=== PATIENT | female | born 1970 | race Caucasian/White ===

== ENCOUNTER 2023-05-06 08:57 | Outpatient (OUT) | payer MEDICAID, SELFPAY ==
[2023-05-06 09:31] LABS: Basophils Absolute Auto 0.1 10^3/uL (0.0-0.1); Basophils Percent Auto 0.8 % (0.2-2.0); Eosinophils Absolute Auto 0.2 10^3/uL (0.0-0.7); Eosinophils Percent Auto 2.7 % (0.9-7.0); Hematocrit 41.2 % (36.0-48.0); Hemoglobin 13.2 g/dL (12.0-16.0); Immature Granulocytes Abs Auto 0.02 10^3/uL (0.00-0.03); Immature Granulocytes Pct Auto 0.3 % (0.0-0.5); Lymphocytes Absolute Auto 1.8 10^3/uL (1.2-3.8); Lymphocytes Percent Auto 23.4 % (20.5-60.0); Mean Corpuscular Hemoglobin 28.2 pg (26.7-34.0); Mean Platelet Volume 9.4 fL (9.5-13.5); Monocytes Absolute Auto 0.6 10^3/uL (0.3-0.8); Monocytes Percent Auto 7.7 % (1.7-12.0); Neutrophils Absolute Auto 5.1 10^3/uL (1.4-6.5); Neutrophils Percent Auto 65.1 % (43.0-75.0); Platelet Count 271 10^3/uL (150-450); Red Blood Count 4.68 10^6/uL (4.20-5.40); Red Cell Distribution Width 13.9 % (11.0-15.0); White Blood Count 7.9 10^3/uL (4.0-11.0)
[2023-05-06 10:25] LABS: Free T4 0.87 ng/dL (0.76-1.46)
[2023-05-06 10:57] LABS: Alanine Aminotransferase 16 U/L (14-59); Albumin Level 3.6 g/dL (3.4-5.0); Alkaline Phosphatase 70 U/L (46-116); Anion Gap 14.3; Aspartate Amino Transferase 11 U/L (15-37); Bilirubin Total 0.1 mg/dL (0.2-1.0); Calcium 9.2 mg/dL (8.5-10.1); Carbon Dioxide 26.1 mmol/L (21.0-32.0); Chloride 105 mmol/L (98-107); Chol HDL Ratio 3.7; Cholesterol 240 mg/dL (<=200); Estimated GFR (African America >60 (>=60); Estimated GFR (Non-African Ame >60 (>=60); Globulin 3.5 g/dL; Glucose 104 mg/dL (74-106); HDL Cholesterol 65 mg/dL (40-60); Potassium 4.4 mmol/L (3.5-5.1); Sodium 141 mmol/L (136-145); Thyroid Stimulating Hormone 1.518 uIU/mL (0.358-3.740); Total Protein 7.1 g/dL (6.4-8.2); Triglycerides 54 mg/dL (<=150); VLDL CHOLESTEROL 10.8 mg/dL
== END 2023-05-06 08:58 | disposition home or self-care (01) ==
LOC: LAB 09:01
PROVIDERS: PCP Physician Assistant; Visit Provider Physician Assistant
DX: F41.9 Anxiety disorder, unspecified (principal); G25.81 Restless legs syndrome; Z79.899 Other long term (current) drug therapy; Z13.6 Encounter for screening for cardiovascular disorders
CPT/HCPCS: 36415; 80053; 80061; 80307; 84439; 84443; 85025

== ENCOUNTER 2023-11-24 11:29 | Outpatient (REF) | payer MEDICAID, SELFPAY ==
[2023-11-24 12:10] LABS: Amphetamine Screen Urine NEGATIVE (NEGATIVE); Barbiturates Screen Urine NEGATIVE (NEGATIVE); Benzodiazepines Screen Urine NEGATIVE (NEGATIVE); Buprenorphine Screen Urine NEGATIVE (NEGATIVE); Cannabinoid Screen Urine NEGATIVE (NEGATIVE); Cocaine Screen Urine NEGATIVE (NEGATIVE); Methadone Screen Urine NEGATIVE (NEGATIVE); Methamphetamines Screen Urine NEGATIVE (NEGATIVE); Opiate Screen Urine NEGATIVE (NEGATIVE); Oxycodone Screen Urine NEGATIVE (NEGATIVE); Phencyclidine Screen Urine NEGATIVE (NEGATIVE); Tricyclic Antidepressant Urine NEGATIVE (NEGATIVE)
== END 2023-11-24 11:30 | disposition home or self-care (01) ==
LOC: LAB 11:29
PROVIDERS: PCP Physician Assistant; Visit Provider Nurse Practitioner
DX: G25.81 Restless legs syndrome (principal)
CPT/HCPCS: 80307

== ENCOUNTER 2023-12-27 19:05 | Emergency (ER) | payer MEDICAID, SELFPAY ==
[2023-12-27] VITALS (41 sets, daily range): BP systolic 67–133; BP diastolic 38–76; PULSE 75–102; TEMP 36.8; O2SAT 89–98; BMI 27.5
--- NOTE | 2023-12-27 19:12 | ECG_ITS ---
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
--- NOTE | 2023-12-27 19:16 | ED_ITS ---
Documented by User: MORE Delacruz 12/27/23 21:35 HPI HPI - General Adult General Chief complaint: Nausea/Vomiting/Diarrhea Stated complaint: General Weakness Time Seen by Provider: 12/27/23 19:07 Source: patient Mode of arrival: ambulance Limitations: no limitations History of Present Illness HPI narrative: Patient is a 53-year-old female with a history of MS who presents to the emergency room by ambulance after family called 911 because the patient has been feeling weak with vomiting and diarrhea over the last several days. Patient states she has daily seizures although family reports that the last seizure the patient had was 3 days ago. She sees a neurologist through [facility]. She is on Keppra for the seizures. She states 2 months ago her Keppra was increased. She states she is currently having a headache, back pain. She denies any falls or injuries. EMS reported hypotension. Patient denies chest pain, shortness of breath, fevers, chills, upper respiratory symptoms. History is difficult as the patient has dysarthria from her MS. Related Data Home Medications ?Medication ?Instructions ?Recorded ?Confirmed amitriptyline 25 mg tablet mg 12/27/23 atorvastatin 10 mg tablet mg 12/27/23 carisoprodol 350 mg tablet mg 12/27/23 levetiracetam 500 mg tablet 700 mg PO Q12H 12/27/23 12/27/23 mirtazapine 15 mg tablet mg 12/27/23 pantoprazole 40 mg tablet,delayed mg PO 12/27/23 release venlafaxine 150 mg mg PO 12/27/23 capsule,extended release 24 hr Allergies Allergy/AdvReac Type Severity Reaction Status Date / Time Penicillins Allergy Unknown Verified 12/27/23 19:12 Opioid HPI Opioid Management Most Recent Opioid Data: Last Pain Scale 10 12/27/23 20:17 Ur Phencyclidine Scrn Negative (NEGATIVE) 11/24/23 10:00 Review of Systems ROS Constitutional Denies: fever or chills Ears, nose, mouth, and throat Denies: throat pain or nasal congestion Cardiovascular Denies: chest pain Respiratory Denies: shortness of breath Gastrointestinal Reports: nausea, vomiting and diarrhea Musculoskeletal Reports: back pain Neurological Reports: headache, weakness in extremities and lack of coordination Hematologic/Lymphatic Denies: easy bruising or easy bleeding Allergic/Immunologic Denies: hives Exam Narrative Exam Narrative: Gen.: Awake, alert, in no distress Head: Normocephalic, atraumatic ENT: Moist mucous membranes, No facial or dental injury Respiratory: No respiratory distress, lungs clear bilaterally Cardio: Regular rate and rhythm Gastrointestinal: Abdomen is soft, nondistended and nontender to palpation; Urostomy bag to the right lower abdomen with dark-colored urine Extremities: Global weakness of the extremities with contractures of the hands noted Psych: Normal mood and affect Neuro: No focal neuro deficit Skin: Warm, dry, intact Constitutional Vital Signs, click to edit/add: Last Vital Signs Temp 98.3 F 12/27/23 19:09 Pulse 85 12/27/23 22:12 Resp 16 12/27/23 22:12 BP 98/64 12/27/23 22:12 Pulse Ox 93 L 12/27/23 22:12 O2 Del Method Room Air 12/27/23 19:09 Course Vital Signs Vital signs: Vital Signs Temperature 98.3 F 12/27/23 19:09 Pulse Rate 100 H 12/27/23 19:09 Respiratory Rate 18 12/27/23 19:09 Blood Pressure 85/65 L 12/27/23 19:09 Pulse Oximetry 94 L 12/27/23 19:09 Oxygen Delivery Method Room Air 12/27/23 19:09 Temperature 98.3 F 12/27/23 19:09 Pulse Rate 85 12/27/23 22:12 Respiratory Rate 16 12/27/23 22:12 Blood Pressure 98/64 12/27/23 22:12 Pulse Oximetry 93 L 12/27/23 22:12 Oxygen Delivery Method Room Air 12/27/23 19:09 Medical Decision Making [facility] Narrative Medical decision making narrative: 2133: Patient was treated with IV fluids, Zofran, Toradol, Keppra. She had 2 IVs infiltrate. Ultrasound-guided IV was placed for third time. Patient requested a Percocet which is her regular pain medication. Blood pressure improved. Based on the patient's symptoms, she was sent for a head CT, CT of the abdomen and pelvis with IV contrast and the remainder of the labs are pending. Case is turned over to attending physician at this time for disposition. Medical Records Medical records reviewed: Yes I reviewed the patient's medical records Lab Data Lab results reviewed: Yes I reviewed the patient's lab results Labs: Lab Results 12/27/23 12/27/23 12/27/23 Range/Units 19:00 19:49 20:44 WBC 7.1 (4.0-11.0) 10^3/uL RBC 4.65 (4.20-5.40) 10^6/uL Hgb 12.9 (12.0-16.0) g/dL Hct 41.1 (36.0-48.0) % MCV 88.4 (81.0-99.0) fL MCH 27.7 (26.7-34.0) pg MCHC 31.4 (29.9-35.2) g/dL RDW 14.6 (11.0-15.0) % Plt Count 297 (150-450) 10^3/uL MPV 9.5 (9.5-13.5) fL Neut % (Auto) 70.9 (43.0-75.0) % Lymph % (Auto) 18.2 L (20.5-60.0) % [place] % (Auto) 6.4 (1.7-12.0) % Eos % (Auto) 3.1 (0.9-7.0) % Baso % (Auto) 1.0 (0.2-2.0) % Neut # (Auto) 5.1 (1.4-6.5) 10^3/uL Lymph # (Auto) 1.3 (1.2-3.8) 10^3/uL [place] # (Auto) 0.5 (0.3-0.8) 10^3/uL Eos # (Auto) 0.2 (0.0-0.7) 10^3/uL Baso # (Auto) 0.1 (0.0-0.1) 10^3/uL Abs Immat Gran (auto) 0.03 (0.00-0.03) 10^3/uL Imm/Tot Granulo (auto) 0.4 (0.0-0.5) % PT 9.9 (9.0-11.6) sec INR 0.93 VBG pH 7.373 (7.330-7.430) VBG pCO2 49.1 (40.0-52.0) mmHg Sodium 140 (136-145) mmol/L Potassium 4.1 (3.5-5.1) mmol/L Chloride 104 (98-107) mmol/L Carbon Dioxide 29.1 (21.0-32.0) mmol/L Anion Gap 11.0 BUN 15.0 (7.0-18.0) mg/dL Creatinine 0.88 (0.55-1.02) mg/dL Est GFR ( Amer) >60 (>=60) Est GFR (Non-Af Amer) >60 (>=60) BUN/Creatinine Ratio 17.0 Glucose 114 H (74-106) mg/dL Lactate 1.5 (0.4-2.0) mmol/L Calcium 8.9 (8.5-10.1) mg/dL Magnesium 2.1 (1.8-2.4) mg/dL Total Bilirubin 0.2 (0.2-1.0) mg/dL AST 15 (15-37) U/L ALT 16 (14-59) U/L Alkaline Phosphatase 98 (46-116) U/L Troponin I High Sens <4.0 L (4.0-51.3) pg/mL Total Protein 7.0 (6.4-8.2) g/dL Albumin 3.4 (3.4-5.0) g/dL Globulin 3.6 g/dL Albumin/Globulin Ratio 0.9 Lipase 11.0 L (16.0-77.0) U/L Procalcitonin <0.05 (0.00-0.50) ng/mL TSH 0.726 (0.358-3.740) uIU/mL Urine Color Dk yellow (YELLOW) Urine Clarity Cloudy A (CLEAR) Urine pH 7.0 (5.0-9.0) Ur Specific [place] 1.025 (1.005-1.025) Urine Protein 100 A (NEG/TRACE) mg/dL Urine Glucose (UA) Negative (NEGATIVE) mg/dL Urine Ketones Trace A (NEGATIVE) mg/dL Urine Occult Blood Negative (NEGATIVE) Urine Nitrite Negative (NEGATIVE) Urine Bilirubin Negative (NEGATIVE) Urine Urobilinogen 0.2 (0.2-1.0) EU/dL Ur Leukocyte Esterase Small A (NEGATIVE) Urine RBC 0-2 (0-2) #/HPF Urine WBC 10-20 A (NONE SEEN) #/HPF Ur Squamous Epith Cells Few A (NONE/RARE) #/LPF Urine Crystals Seen A (None Seen) #/HPF Calcium Oxalate Crystal Moderate Amorphous Sediment Many Urine Bacteria None seen (NONE SEEN) #/HPF Urine Casts None seen (NONE SEEN) #/LPF Urine Mucus Moderate A (NONE SEEN) Ur Culture Indicated? Yes Adenovirus (PCR) Not detected (NOT DETECTE) B. pertussis DNA (PCR) Not detected (NOT DETECTE) B.parapertussis DNA PCR Not detected (NOT DETECTE) C. pneumoniae DNA (PCR) Not detected (NOT DETECTE) Coronavirus Type OC43 Not detected (NOT DETECTE) Coronavirus Type HKU1 Not detected (NOT DETECTE) Coronavirus Type 229E Not detected (NOT DETECTE) Coronavirus Type NL63 Not detected (NOT DETECTE) Human Metapneumovir PCR Not detected (NOT DETECTE) Influenza Type A (PCR) Not detected (NOT DETECTE) Influenza Type B (PCR) Not detected (NOT DETECTE) M. pneumoniae (PCR) Not detected (NOT DETECTE) Parainfluenza PCR Not detected (NOT DETECTE) Parainfluenza 2 (PCR) Not detected (NOT DETECTE) Parainfluenza 3 (PCR) Not detected (NOT DETECTE) Parainfluenza 4 (PCR) Not detected (NOT DETECTE) RSV (RT-PCR) Not detected (NOT DETECTE) Entero/Rhino (PCR) Not detected (NOT DETECTE) SARS-CoV-2 (PCR) Not detected (NOT DETECTE) ECG Data Attestation: I personally reviewed and interpreted this ECG as follows: (Sinus tachycardia at a rate of 100, no acute ST elevation or ectopy. EKG reviewed by attending physician.) Discharge Plan Discharge Patient Disposition: Still a Patient Documented by User: Camila Bertrand MD 12/27/23 22:46 HPI HPI - General Adult General Chief complaint: Nausea/Vomiting/Diarrhea Stated complaint: General Weakness Time Seen by Provider: 12/27/23 19:07 Related Data Home Medications ?Medication ?Instructions ?Recorded ?Confirmed amitriptyline 25 mg tablet mg 12/27/23 atorvastatin 10 mg tablet mg 12/27/23 carisoprodol 350 mg tablet mg 12/27/23 levetiracetam 500 mg tablet 700 mg PO Q12H 12/27/23 12/27/23 mirtazapine 15 mg tablet mg 12/27/23 pantoprazole 40 mg tablet,delayed mg PO 12/27/23 release venlafaxine 150 mg mg PO 12/27/23 capsule,extended release 24 hr Allergies Allergy/AdvReac Type Severity Reaction Status Date / Time Penicillins Allergy Unknown Verified 12/27/23 19:12 Opioid HPI Opioid Management Most Recent Opioid Data: Last Pain Scale 10 12/27/23 20:17 Ur Phencyclidine Scrn Negative (NEGATIVE) 11/24/23 10:00 Exam Constitutional Vital Signs, click to edit/add: Last Vital Signs Temp 98.3 F 12/27/23 19:09 Pulse 85 12/27/23 22:12 Resp 16 12/27/23 22:12 BP 98/64 12/27/23 22:12 Pulse Ox 93 L 12/27/23 22:12 O2 Del Method Room Air 12/27/23 19:09 Course Vital Signs Vital signs: Vital Signs Temperature 98.3 F 12/27/23 19:09 Pulse Rate 100 H 12/27/23 19:09 Respiratory Rate 18 12/27/23 19:09 Blood Pressure 85/65 L 12/27/23 19:09 Pulse Oximetry 94 L 12/27/23 19:09 Oxygen Delivery Method Room Air 12/27/23 19:09 Temperature 98.3 F 12/27/23 19:09 Pulse Rate 85 12/27/23 22:12 Respiratory Rate 16 12/27/23 22:12 Blood Pressure 98/64 12/27/23 22:12 Pulse Oximetry 93 L 12/27/23 22:12 Oxygen Delivery Method Room Air 12/27/23 19:09 Medical Decision Making Medical Records Medical records narrative: The [address] [address] [address] Scan Report Signed Patient: JIMENA MALDONADO MR#: [id number] : 1970 Acct:[id number] Age/Sex: 53 / F ADM Date: 12/27/23 Loc: ER Attending Dr: Ordering Physician: Ethan Dinh Date of Service: 12/27/23 Procedure(s): CT head/brain wo con Accession Number(s): [id number] cc: Lyle Quezada ~ The [address] [address] Patient Name: JIMENA MALDONADO MRN: [facility]:[id number] date: 1970 Sex: F Assigned Patient Location: ER Current Patient Location: ER Accession/Order Number: [id number] Exam Date: 12/27/2023 21:40 Report Date: 12/27/2023 22:36 At the request of: ETHAN DINH Procedure: CT head/brain wo con INDICATION: 53 years old; Female. Seizure. Headache. TECHNIQUE: CT Head (ax/cor/sag reformats). Ionizing radiation dose reduced via iterative reconstruction/FBP blend and body size kV/mA adjustment. Comparison: MRI the brain dated 12/11/2022. FINDINGS: POSTOPERATIVE CHANGES: None. BRAIN PARENCHYMA: No intraparenchymal or extra-axial hemorrhage. No mass effect. No midline shift or herniation. Normal ac/white differentiation. VENTRICLES/EXTRA-AXIAL SPACES: Normal for patient's age. SINUSES/MASTOIDS: Sinuses are clear although the maxillary sinuses are not completely included. Mastoids and middle ears are clear. MSK: No displaced or depressed fracture. No calvarial deformity. OTHER: Vascular calcification. No hyperdense intraluminal thrombus. CT/CT head/brain wo con IMPRESSION: 1. No acute intracranial abnormality. No hemorrhage or mass effect. Electronically authenticated by: PATRICIO HELMS Date: 12/27/2023 22:36 Lab Data Labs: Lab Results 12/27/23 12/27/23 12/27/23 Range/Units 19:00 19:49 20:44 WBC 7.1 (4.0-11.0) 10^3/uL RBC 4.65 (4.20-5.40) 10^6/uL Hgb 12.9 (12.0-16.0) g/dL Hct 41.1 (36.0-48.0) % MCV 88.4 (81.0-99.0) fL MCH 27.7 (26.7-34.0) pg MCHC 31.4 (29.9-35.2) g/dL RDW 14.6 (11.0-15.0) % Plt Count 297 (150-450) 10^3/uL MPV 9.5 (9.5-13.5) fL Neut % (Auto) 70.9 (43.0-75.0) % Lymph % (Auto) 18.2 L (20.5-60.0) % [place] % (Auto) 6.4 (1.7-12.0) % Eos % (Auto) 3.1 (0.9-7.0) % Baso % (Auto) 1.0 (0.2-2.0) % Neut # (Auto) 5.1 (1.4-6.5) 10^3/uL Lymph # (Auto) 1.3 (1.2-3.8) 10^3/uL [place] # (Auto) 0.5 (0.3-0.8) 10^3/uL Eos # (Auto) 0.2 (0.0-0.7) 10^3/uL Baso # (Auto) 0.1 (0.0-0.1) 10^3/uL Abs Immat Gran (auto) 0.03 (0.00-0.03) 10^3/uL Imm/Tot Granulo (auto) 0.4 (0.0-0.5) % PT 9.9 (9.0-11.6) sec INR 0.93 VBG pH 7.373 (7.330-7.430) VBG pCO2 49.1 (40.0-52.0) mmHg Sodium 140 (136-145) mmol/L Potassium 4.1 (3.5-5.1) mmol/L Chloride 104 (98-107) mmol/L Carbon Dioxide 29.1 (21.0-32.0) mmol/L Anion Gap 11.0 BUN 15.0 (7.0-18.0) mg/dL Creatinine 0.88 (0.55-1.02) mg/dL Est GFR ( Amer) >60 (>=60) Est GFR (Non-Af Amer) >60 (>=60) BUN/Creatinine Ratio 17.0 Glucose 114 H (74-106) mg/dL Lactate 1.5 (0.4-2.0) mmol/L Calcium 8.9 (8.5-10.1) mg/dL Magnesium 2.1 (1.8-2.4) mg/dL Total Bilirubin 0.2 (0.2-1.0) mg/dL AST 15 (15-37) U/L ALT 16 (14-59) U/L Alkaline Phosphatase 98 (46-116) U/L Troponin I High Sens <4.0 L (4.0-51.3) pg/mL Total Protein 7.0 (6.4-8.2) g/dL Albumin 3.4 (3.4-5.0) g/dL Globulin 3.6 g/dL Albumin/Globulin Ratio 0.9 Lipase 11.0 L (16.0-77.0) U/L Procalcitonin <0.05 (0.00-0.50) ng/mL TSH 0.726 (0.358-3.740) uIU/mL Urine Color Dk yellow (YELLOW) Urine Clarity Cloudy A (CLEAR) Urine pH 7.0 (5.0-9.0) Ur Specific [place] 1.025 (1.005-1.025) Urine Protein 100 A (NEG/TRACE) mg/dL Urine Glucose (UA) Negative (NEGATIVE) mg/dL Urine Ketones Trace A (NEGATIVE) mg/dL Urine Occult Blood Negative (NEGATIVE) Urine Nitrite Negative (NEGATIVE) Urine Bilirubin Negative (NEGATIVE) Urine Urobilinogen 0.2 (0.2-1.0) EU/dL Ur Leukocyte Esterase Small A (NEGATIVE) Urine RBC 0-2 (0-2) #/HPF Urine WBC 10-20 A (NONE SEEN) #/HPF Ur Squamous Epith Cells Few A (NONE/RARE) #/LPF Urine Crystals Seen A (None Seen) #/HPF Calcium Oxalate Crystal Moderate Amorphous Sediment Many Urine Bacteria None seen (NONE SEEN) #/HPF Urine Casts None seen (NONE SEEN) #/LPF Urine Mucus Moderate A (NONE SEEN) Ur Culture Indicated? Yes Adenovirus (PCR) Not detected (NOT DETECTE) B. pertussis DNA (PCR) Not detected (NOT DETECTE) B.parapertussis DNA PCR Not detected (NOT DETECTE) C. pneumoniae DNA (PCR) Not detected (NOT DETECTE) Coronavirus Type OC43 Not detected (NOT DETECTE) Coronavirus Type HKU1 Not detected (NOT DETECTE) Coronavirus Type 229E Not detected (NOT DETECTE) Coronavirus Type NL63 Not detected (NOT DETECTE) Human Metapneumovir PCR Not detected (NOT DETECTE) Influenza Type A (PCR) Not detected (NOT DETECTE) Influenza Type B (PCR) Not detected (NOT DETECTE) M. pneumoniae (PCR) Not detected (NOT DETECTE) Parainfluenza PCR Not detected (NOT DETECTE) Parainfluenza 2 (PCR) Not detected (NOT DETECTE) Parainfluenza 3 (PCR) Not detected (NOT DETECTE) Parainfluenza 4 (PCR) Not detected (NOT DETECTE) RSV (RT-PCR) Not detected (NOT DETECTE) Entero/Rhino (PCR) Not detected (NOT DETECTE) SARS-CoV-2 (PCR) Not detected (NOT DETECTE) Discharge Plan Discharge Patient Disposition: Still a Patient
--- OUTSIDE RECORDS SUMMARY | 2023-12-27 19:18 | XMS_ITS | CCD ---
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 Name Role Phone FRANKLIN DALY Primary Care Unavailable MANUEL ., MARY Admitting Unavailable MANUEL ., MARY Attending Unavailable ANYI PRIETO Consulting Unavailable LAUREN RANDLE Consulting Unavailable HOMAR HICKEY Admitting Unavailable HOMAR HICKEY Attending Unavailable FRANKLIN DALY Primary Care Unavailable MAXX, DR AMBER Chavira Consulting Unavailable SUNNY, DR LUIS Herrera Consulting Unavailable HOMAR HICKEY Consulting Unavailable FRANKLIN DALY Admitting Unavailable FRANKLIN DALY Attending Unavailable FRANKLIN DALY Primary Care Unavailable FRANKLIN DALY Consulting Unavailable Allergies Allergy Classification Reported Allergen(s) Allergy Type Date of Onset Reaction(s) Facility (1 source) Penicillins Drug allergy (disorder) 05-04-2013 [facility] Repository Problems Active Problems Problem Classification Problem Date Documented Da te Episodic/Chronic Anxiety disorders (4 sources) Anxiety disorder, unspecified; Translations: [ANXIETY DISORDER UNSPECIFIED] Onset: 01-13-2022 Chronic Cancer of bladder (1 source) Malignant neoplasm of bladder, unspecified; Translations: [MALIGNANT NEOPLASM OF BLADDER UNS] Onset: 04-17-2022 Chronic Epilepsy; convulsions (4 sources) Unspecified convulsions; Translations: [UNSPECIFIED CONVULSIONS] Onset: 12-11-2022 Episodic Esophageal disorders (1 source) Gastro-esophageal reflux disease without esophagitis; Translations: [GERD WITHOUT ESOPHAGITIS] Onset: 01-15-2022 Chronic Genitourinary symptoms and ill-defined conditions (1 source) Presence of urogenital implants; Translations: [PRESENCE OF UROGENITAL IMPLANTS] Onset: 04-17-2022 Chronic Other hereditary and degenerative nervous system conditions (1 source) Restless legs syndrome; Translations: [RESTLESS LEGS SYNDROME] Onset: 01-15-2022 Chronic Other nervous system disorders (1 source) Abnormal reflex; Translations: [ABNORMAL REFLEX] Onset: 12-14-2022 Episodic Spondylosis; intervertebral disc disorders; other back problems (1 source) Radiculopathy, lumbar region; Translations: [RADICULOPATHY LUMBAR REGION] Onset: 12-14-2022 Episodic Viral infection (1 source) COVID-19; Translations: [COVID-19] Onset: 04-17-2022 Past or Other Problems Problem Classification Problem Date Documented Date Episodic/Chronic Malaise and fatigue (3 sources) Weakness; Translations: [WEAKNESS] Onset: 04-15-2022 Episodic Other screening for suspected conditions (not mental disorders or infectious disease) (1 source) Encounter for screening for cardiovascular disorders; Translations: [ENC FOR SCREENING FOR CV DISORDERS] Onset: 01-15-2022 Episodic Urinary tract infections (1 source) Urinary tract infection, site not specified; Translations: [UTI SITE NOT SPECIFIED] Onset: 04-17-2022 Episodic Results Test Name Value Interpretation Reference Range Facility MRI BRAIN WO W CONon 023 MRI BRAIN WO W CON EXAMINATION: MRI BRAIN WO W CON HISTORY: Seizure ; chronic bilateral extremity weakness COMPARISON: No relevant comparison available. TECHNIQUE: A variety of imaging planes and parameters were utilized for visualization of suspected pathology. Images were performed without and with ml Dotarem contrast. FINDINGS: CEREBRUM: No edema, hemorrhage, mass, acute infarction, or inappropriate atrophy. CEREBELLUM: No edema, hemorrhage, mass, acute infarction, or inappropriate atrophy. BRAINSTEM: No edema, hemorrhage, mass, acute infarction, or inappropriate atrophy. CSF SPACES: Ventricles, cisterns, and sulci are appropriate for age. No hydrocephalus, subarachnoid hemorrhage, or mass. SKULL: No mass or other significant visible lesion. SINUSES: Limited views demonstrate no significant mucosal thickening or fluid. ORBITS: Limited views are unremarkable. OTHER: No abnormal meningeal or parenchymal enhancement. IMPRESSION: 1. Normal examination. Electronically authenticated by: LUIS CORREA Date: 2022-12-12 07:24 Normal [facility] MRI LSPINE WO CONon 12-13-19 23 MRI LSPINE WO CON EXAMINATION: MRI LSPINE WO CON HISTORY: Paresthesia COMPARISON: No relevant comparison available. TECHNIQUE: A variety of imaging planes and parameters were utilized for visualization of suspected pathology. FINDINGS: For the purposes of numbering, sagittal T2 image # 8 extends from the T11 vertebral body superiorly to the S3 level inferiorly. PARASPINAL AREA: Normal with no visible mass. BONES: Normal alignment with no acute fracture or spondylolisthesis. Moderate signal abnormality identified centered along the endplates of the L2-L4 vertebral bodies, Modic 2 and 3 changes. Moderate degenerative spondylosis and facet osteoarthropathy CORD/CAUDA EQUINA: Normal caliber, contour, and signal intensity. DISC LEVELS: 12-L1: No significant disc/facet abnormality, spinal stenosis, or foraminal stenosis. L1-L2: Moderate disc space narrowing and disc desiccation. No disc bulge or herniation. No central or foraminal stenosis L2-L3: Moderate disc space narrowing and disc desiccation. Posterior broad-based disc protrusion up to 2.5 mm. No central or foraminal stenosis L3-L4: Disc space narrowing and disc desiccation. Posterior broad-based disc protrusion extending posteriorly up to 2.3 mm. Ligamentum flavum hypertrophy and facet osteoarthropathy. No central canal stenosis. Moderate bilateral foraminal stenosis right greater than left L4-L5: Disc desiccation. Posterior broad-based disc protrusion. Ligamentum flavum hypertrophy and facet osteoarthropathy. Right facet 3.6 mm synovial cyst. No central canal stenosis. Moderate bilateral foraminal stenosis. L5-S1: No significant disc/facet abnormality, spinal stenosis, or foraminal stenosis. IMPRESSION: Moderate degenerative changes with bilateral foraminal stenosis L3-L4 and L4-L5 as detailed above Electronically authenticated by: AMBER LILLY Date: 2022-12-12 07:21 Normal [facility] CULTURE URINEon 04-18-2022 CULTURE URINE Isolate 1 Proteus mirabilis 100,000 cfu/mL of Isolate 2 Escherichia coli >100,000 cfu/mL of Isolate 3 Klebsiella pneumoniae >100,000 cfu/mL of ORGANISM 1 Proteus mirabilis ANTIBIOTIC M.I.C RX STATUS Ampicillin <=2 S F Ampicillin/Sulbactam <=2 S F Piperacillin/Tazobact am <=4 S F Cefazolin <=4 S F Ceftazidime <=1 S F Ceftriaxone <=1 S F Ertapenem <=0.5 S F Imipenem 0.5 S F Amikacin <=2 S F Gentamicin <=1 S F Tobramycin <=1 S F Ciprofloxacin <=0.25 S F Levofloxacin <=0.12 S F Nitrofurantoin 128 R F Trimethoprim/Sulfamet hoxazole <=20 S F ORGANISM 2 Escherichia coli ANTIBIOTIC M.I.C RX STATUS Ampicillin 4 S F Ampicillin/Sulbactam <=2 S F Piperacillin/Tazobact am <=4 S F Cefazolin <=4 S F Ceftazidime <=1 S F Ceftriaxone <=1 S F Ertapenem <=0.5 S F Imipenem <=0.25 S F Amikacin <=2 S F Gentamicin <=1 S F Tobramycin <=1 S F Ciprofloxacin <=0.25 S F Levofloxacin <=0.12 S F Nitrofurantoin <=16 S F Trimethoprim/Sulfamet hoxazole <=20 S F ORGANISM 3 Klebsiella pneumoniae ANTIBIOTIC M.I.C RX STATUS Ampicillin 16 R F Ampicillin/Sulbactam 4 S F Piperacillin/Tazobact am <=4 S F Cefazolin <=4 S F Ceftazidime <=1 S F Ceftriaxone <=1 S F Ertapenem <=0.5 S F Imipenem <=0.25 S F Amikacin <=2 S F Gentamicin <=1 S F Tobramycin <=1 S F Ciprofloxacin <=0.25 S F Levofloxacin <=0.12 S F Nitrofurantoin 64 I F Trimethoprim/Sulfamet hoxazole <=20 S F Normal [facility] Comment on above: Performed By: #### U RCX #### [facility] [address] [address] [address] Lupis Santana CBC AUTO DIFFon 04-15-2022 BASO # 0.0 103/ul Normal 0.0-0.1 [facility] Comment on above: Performed By: #### C BC ####[facility] [address] [address]Dr. Lupis Santana Basophils/100 WBC (Bld) 0.6 % Normal 0.2-2.0 [facility] Comment on above: Performed By: #### C BC ####[facility] [address] [id number] Santana EO # 0.0 103/ul Normal 0.0-0.7 [facility] Comment on above: Performed By: #### C BC ####[facility] [address] [address]Dr. Lupis Santana Eosinophils/100 WBC (Bld) 0.3 % Critically low 0.9-7.0 [facility] Comment on above: Performed By: #### C BC ####[facility] [address] [place], [place] [address]Dr. Lupis Santana Erythrocyte distribution width (RBC) [Ratio] 13.9 % Normal 11.0-15.0 [facility] Comment on above: Performed By: #### C BC ####[facility] [address] [place], [place] [address]Dr. Lupis Santana Hematocrit (Bld) [Volume fraction] 37.7 % Normal 36.0-48.0 [facility] Comment on above: Performed By: #### C BC ####[facility] [address] [place], [place] [address]Dr. Lupis Santana Hemoglobin (Bld) [Mass/Vol] 11.9 g/dL Critically low 12.0-16.0 [facility] Comment on above: Performed By: #### C BC ####[facility] [address] [place], [place] [address]Dr. Lupis Santana IG # 0.01 10e3/ul Normal 0.00-0.03 [facility] Comment on above: Performed By: #### C BC ####[facility] [address] [place], [place] [address]Dr. Lupis Santana IG % 0.3 % Normal 0.0-0.5 [facility] Comment on above: Performed By: #### C BC ####[facility] [address] [place], [place] [address]Dr. Lupis Santana LYMPH # 1.3 103/ul Normal 1.2-3.8 [facility] Comment on above: Performed By: #### C BC ####[facility] X[address] [place], [place] [address]Dr. Lupis Santana Lymphocytes/100 WBC (Bld) 36.3 % Normal 20.5-60.0 [facility] Comment on above: Performed By: #### C BC ####[facility] [address] [id number]. Lupis Santana MANUAL DIFF REQ NO Normal [facility] Comment on above: Performed By: #### C BC ####[facility] [address] [id number]. Lupis Santana MCH (RBC) [Entitic mass] 27.4 pg Normal 26.7-34.0 [facility] Comment on above: Performed By: #### C BC ####[facility] [address] [id number]. Lupis Santana MCHC (RBC) [Mass/Vol] 31.6 g/dL Normal 29.9-35.2 [facility] Comment on above: Performed By: #### C BC ####[facility] [address] [place], [place] [address]Dr. Lupis Santana MCV (RBC) [Entitic vol] 86.7 fL Normal 81.0-99.0 [facility] Comment on above: Performed By: #### C BC ####[facility] [address] [place], [place] [address]Dr. Lupis Santana MONO # 0.6 103/ul Normal 0.3-0.8 [facility] Comment on above: Performed By: #### C BC ####[facility] [address] [address]Dr. Lupis Santana Monocytes/100 WBC (Bld) 15.4 % Critically high 1.7-12.0 [facility] Comment on above: Performed By: #### C BC ####[facility] [address] [place], [place] [address]Dr. Lupis Santana NEUT # 1.7 103/ul Normal 1.4-6.5 [facility] Comment on above: Performed By: #### C BC ####[facility] [address] [place], [place] [address]Dr. Lupis Santana Neutrophils/100 WBC (Bld) 47.1 % Normal 43.0-75.0 [facility] Comment on above: Performed By: #### C BC ####[facility] [address] [id number]. Lupis Santana Platelet mean volume (Bld) [Entitic vol] 9.1 fL Critically low 9.5-13.5 [facility] Comment on above: Performed By: #### C BC ####[facility] [address] [id number]. Lupis Santana PLT 189 103/ul Normal 150-450 [facility] Comment on above: Performed By: #### C BC ####[facility] [address] [place], [place] [address]Zg. Lupis Santana RBC 4.35 106/ul Normal 4.20-5.40 [facility] Comment on above: Performed By: #### C BC ####[facility] [address] [id number]. Lupis Santana WBC 3.6 103/ul Critically low 4.0-11.0 [facility] Comment on above: Performed By: #### C BC ####[facility] [address] [id number]. Lupis Santana Covid-19 PCR (CVDTB)on 04-03 SARS-CoV-2 (COVID-19) RNA BARBARA+probe Ql (Unsp spec) Detected Critically abnormal NOT DETECTED [facility] Comment on above: Result Comment: This test is not yet approved or cleared by the [place] FDA. When there are no FDA-approved or cleared tests available, and other criteria are met, FDA can make tests available under an emergency access mechanism called an Emergency Use Authorization (EUA). The EUA for this test is supported by the [place] of Health and Human Service's declaration that circumstances exist to justify the emergency use of in vitro diagnostics for the detection and/or diagnosis of the virus that causes COVID-19. This EUA will remain in effect for the duration of the COVID-19 declaration justifying emergency of IVDs, unless it is terminated or revoked by the FDA (after which the test may no longer be used). Performed By: #### C VDTBH #### [facility] [address] [place] [address] Dr. Lupis Santana ER URINE PROFILEon 2 Bilirubin Ql (U) Negative Normal NEGATIVE [facility] Comment on above: Performed By: #### Danilo HAND UMICRO #### [facility] [address] [place] [address] Dr. Lupis Santana Clarity (U) SL CLOUDY Abnormal CLEAR [facility] Comment on above: Performed By: #### Danilo HAND UMICRO #### [facility] [address] [place] [address] Dr. Lupis Santana Color (U) YELLOW Normal YELLOW [facility] Comment on above: Performed By: #### PINKY VALIENTEICRO #### [facility] [address] [place] [address] Dr. Lupis SANCHEZ A micrscopic examination will be performed if indicated. Normal [facility] Comment on above: Performed By: #### PINKY VALIENTEICRO #### [facility] [address] [place] [address] Dr. Lupis Santana Glucose Ql (U) Negative Normal NEGATIVE [facility] Comment on above: Performed By: #### PINKY VALIENTEICRO #### [facility] [address] [place] [address] Dr. Lupis Santana Hemoglobin Ql (U) Negative Normal NEGATIVE [facility] Comment on above: Performed By: #### PINKY VALIENTEICRO #### [facility] [address] [place] [address] Dr. Lupis Santana Ketones Ql (U) Negative Normal NEGATIVE [facility] Comment on above: Performed By: #### PINKY VALIENTEICRO #### [facility] [address] [place] [address] Dr. Lupis Santana LEUKOCYTES Negative Normal NEGATIVE [facility] Comment on above: Performed By: #### Danilo HAND UMICRO #### [facility] [address] [place] [address] Dr. Lupis Santana Nitrite Ql (U) Positive Abnormal NEGATIVE [facility] Comment on above: Performed By: #### Danilo HAND, UMICRO #### [facility] [address] [place] [address] Dr. Lupis Santana pH (U) 6.0 [pH] Normal 5-9 [facility] Comment on above: Performed By: #### Danilo HAND, UMICRO #### [facility] [address] [place] [address] Dr. Lupis Santana SPEC GRAVITY 1.020 Normal 1.005-<=1.025 [facility] Comment on above: Performed By: #### Danilo HAND, UMICRO #### [facility] [address] [place] [address] Dr. Lupis Santana UA PROTEIN Negative Normal NEGATIVE/ TRACE [facility] Comment on above: Performed By: #### Danilo HAND, UMICRO #### [facility] [address] [place] [address] Dr. Lupis Santana UR MICRO IND INDICATED Normal [facility] Comment on above: Performed By: #### Danilo HAND, UMICRO #### [facility] [address] [place] [address] Dr. Lupis Santana Urobilinogen Qn (U) 1.0 {Batsheva'U}/dL Normal 0.2 - 1.0 [facility] Comment on above: Performed By: #### Danilo HAND, UMICRO #### [facility] [address] [place] [address] Dr. Lupis Santana LACTATE/LACTIC ACIDon 2021 Lactate [Moles/Vol] 0.5 mmol/L Normal 0.4-1.9 [facility] Comment on above: Performed By: #### L ACT #### [facility] [address] [place] [address] Dr. Lupis Santana PROF 14(COMP METB)on 022 Albumin [Mass/Vol] 3.5 g/dL Normal 3.4-5.0 [facility] Comment on above: Performed By: #### C MP #### [facility] [address] [place] [address] Dr. Lupis Santana Albumin/Globulin [Mass ratio] 1.0 {ratio} Normal [facility] Comment on above: Performed By: #### C MP #### [facility] [address] [place] [address] Dr. Lupis Santana ALP [Catalytic activity/Vol] 76 U/L Normal 46-116 [facility] Comment on above: Performed By: #### C MP #### [facility] [address] [place] [address] Dr. Lupis Santana ALT [Catalytic activity/Vol] 17 U/L Normal 14-59 [facility] Comment on above: Performed By: #### C MP #### [facility] [address] [place] [address] Dr. Lupis Santana Anion gap [Moles/Vol] 9.9 mmol/L Normal [facility] Comment on above: Performed By: #### C MP #### [facility] [address] [place] [address] Dr. Lupis Santana AST [Catalytic activity/Vol] 18 U/L Normal 15-37 [facility] Comment on above: Performed By: #### C MP #### [facility] [address] [place] [address] Dr. Lupis Santana Bilirubin [Mass/Vol] 0.3 mg/dL Normal 0.2-1.0 [facility] Comment on above: Performed By: #### C MP #### [facility] [address] [place] [address] Dr. Lupis Santana Calcium [Mass/Vol] 8.7 mg/dL Normal 8.5-10.1 [facility] Comment on above: Performed By: #### C MP #### [facility] [address] [place] [address] Dr. Lupis Santana Chloride [Moles/Vol] 104 mmol/L Normal 98-107 [facility] Comment on above: Performed By: #### C MP #### [facility] [address] [place] [address] Dr. Lupis Santana CO2 [Moles/Vol] 25.8 mmol/L Normal 21.0-32.0 [facility] Comment on above: Performed By: #### C MP #### [facility] [address] [address] [address] Lupis Santana Creatinine [Mass/Vol] 0.81 mg/dL Normal 0.55-1.02 [facility] Comment on above: Performed By: #### C MP #### [facility] [address] [address] [address] Lupis Santana EGFR-AF GREEK >60 Normal >=60 [facility] Comment on above: Performed By: #### C MP #### [facility] [address] [address] [address] Lupis Santana EGFR-NON AF GREEK >60 Normal >=60 [facility] Comment on above: Performed By: #### C MP #### [facility] [address] [place] [address] Dr. Lupis Santana Globulin (S) [Mass/Vol] 3.4 g/dL Normal [facility] Comment on above: Performed By: #### C MP #### [facility] [address] [place] [address] Dr. Lupis Santana Glucose [Mass/Vol] 105 mg/dL Normal 74-106 [facility] Comment on above: Performed By: #### C MP #### [facility] [address] [place] [address] Dr. uLpis Santana Potassium [Moles/Vol] 3.7 mmol/L Normal 3.5-5.1 [facility] Comment on above: Performed By: #### C MP #### [facility] [address] [place] [address] Dr. Lupis Santana Protein [Mass/Vol] 6.9 g/dL Normal 6.4-8.2 [facility] Comment on above: Performed By: #### C MP #### [facility] [address] [place] [address] Dr. Lupis Santana Sodium [Moles/Vol] 136 mmol/L Normal 136-145 [facility] Comment on above: Performed By: #### C MP #### [facility] [address] [address] [address] Lupis Santana Urea nitrogen [Mass/Vol] 11.0 mg/dL Normal 7.0-18.0 [facility] Comment on above: Performed By: #### C MP #### [facility] [address] [address] [address] Lupis Santana Urea nitrogen/Creatinin e [Mass ratio] 13.6 mg/mg Normal [facility] Comment on above: Performed By: #### C MP #### [facility] [address] [address] [address] Lupis Santana TROPONIN, HIGH SENSITIVITYon 04-15-2022 HSTROP 4.9 pg/mL Normal 4.0-51.3 [facility] Comment on above: Result Comment: CUT- OFF POINTS HAVE BEEN ESTABLISHED BASED ON THE FOURTH UNIVERSAL DEFINITIONS OF MYOCARDIAL INFARCTION. THE UPPER REFERENCE LIMIT (URL) OF TROPONIN, DEFINED THE 99TH PERCENTILE OF cTnI DISTRIBUTION IN A REFERENCE POPULATION, HAS BEEN CONFIRMED THE DECISION THRESHOLD FOR OR DIAGNOSIS. Performed By: #### H ILDEFONSOPN #### [facility] [address] [place] [address] Dr. Lupis Santana HSTROP 4.1 pg/mL Normal 4.0-51.3 [facility] Comment on above: Result Comment: CUT- OFF POINTS HAVE BEEN ESTABLISHED BASED ON THE FOURTH UNIVERSAL DEFINITIONS OF MYOCARDIAL INFARCTION. THE UPPER REFERENCE LIMIT (URL) OF TROPONIN, DEFINED THE 99TH PERCENTILE OF cTnI DISTRIBUTION IN A REFERENCE POPULATION, HAS BEEN CONFIRMED THE DECISION THRESHOLD FOR OR DIAGNOSIS. Performed By: #### H SHLIOH ####[facility] [address] [address]Dr. Lupis Santana URINE MICROSCOPIC ONLYon BACTERIA LARGE Abnormal NONE SEEN [facility] Comment on above: Performed By: #### THERESA VALIENTE #### [facility] [address] [place] [address] Dr. Lupis Santana Bacteria identified Cx Nom (U) INDICATED Normal [facility] Comment on above: Performed By: #### THERESA VALIENTE #### [facility] [address] [place], [place] [id number] Dr. Lupis Santana CAST NONE SEEN Normal NONE SEEN [facility] Comment on above: Performed By: #### E FARAZR UMICRO #### [facility] [address] [place] [address] Dr. Lupis Santana Crystals LM Nom (Urine sed) NONE SEEN Normal NONE SEEN [facility] Comment on above: Performed By: #### E FARAZR, UMICRO #### [facility] [address] [place] [address] Dr. Lupis Santana Epithelial cells LM Ql (Urine sed) RARE Normal NONE SEEN /RARE [facility] Comment on above: Performed By: #### E PEACE UMICRO #### [facility] [address] [place] [address] Dr. Lupis Santana MUCOUS TRACE Abnormal NONE SEEN [facility] Comment on above: Performed By: #### Danilo HAND UMICRO #### [facility] [address] [place] [address] Dr. Lupis Santana RBC 0-2 Normal 0-2 [facility] Comment on above: Performed By: #### E PEACE UMICRO #### [facility] [address] [place] [address] Dr. Lupis Santana WBC 5-10 Abnormal NONE SEEN [facility] Comment on above: Performed By: #### E PEACE UMICRO #### [facility] [address] [place] [address] Dr. Lupis Santana XR CHEST 1 Von 04-15-2022 XR CHEST 1 V EXAMINATION: XR CHES T 1 V, , 04/15/2022 2:46 PM EDT INDICATION: SHORTNESS OF BREATH HISTORY: Ordering Provider Reason for Exam: Technologist Note: Additional: COMPARISON: 09/14/12. TECHNIQUE: Chest x-ray: One view. FINDINGS: No pneumothorax, pleural effusion or focal airspace consolidation. Heart is normal in size. Bony thorax is unremarkable. IMPRESSION: No acute cardiopulmonary process. Electronically authenticated by: LAUREN RANDLE Date: 2022-04-15 16:09 Normal [facility] CBC AUTO DIFFon 01-13-2022 BASO # 0.1 103/ul Normal 0.0-0.1 [facility] Comment on above: Performed By: #### C BC ####[facility] [address] [place] [address]Dr. Lupis Santana Basophils/100 WBC (Bld) 1.1 % Normal 0.2-2.0 [facility] Comment on above: Performed By: #### C BC ####[facility] [address] [place], [place] [address]Dr. Lupis Santana EO # 0.1 103/ul Normal 0.0-0.7 [facility] Comment on above: Performed By: #### C BC ####[facility] [address] [place], [place] [address]Dr. Lupis Santana Eosinophils/100 WBC (Bld) 2.2 % Normal 0.9-7.0 [facility] Comment on above: Performed By: #### C BC ####[facility] [address] [place], [place] [address]Dr. Lupis Santana Erythrocyte distribution width (RBC) [Ratio] 14.4 % Normal 11.0-15.0 [facility] Comment on above: Performed By: #### C BC ####[facility] [address] [place], [place] [address]Dr. Lupis Santana Hematocrit (Bld) [Volume fraction] 38.7 % Normal 36.0-48.0 [facility] Comment on above: Performed By: #### C BC ####[facility] [address] [place], [place] [address]Dr. Lupis Santana Hemoglobin (Bld) [Mass/Vol] 11.8 g/dL Critically low 12.0-16.0 [facility] Comment on above: Performed By: #### C BC ####[facility] [address] [place], [place] [address]Dr. Lupis Santana IG # 0.02 10e3/ul Normal 0.00-0.03 [facility] Comment on above: Performed By: #### C BC ####[facility] Utr[address] [place], [place] [address]Dr. Lupis Santana IG % 0.4 % Normal 0.0-0.5 [facility] Comment on above: Performed By: #### C BC ####[facility] [address] [place] [address]DrArturo Lupis Max LYMPH # 1.7 103/ul Normal 1.2-3.8 [facility] Comment on above: Performed By: #### C BC ####[facility] [address] [place] [address]DrArturo Kendraghazal Santana Lymphocytes/100 WBC (Bld) 31.8 % Normal 20.5-60.0 [facility] Comment on above: Performed By: #### C BC ####[facility] [address] [place], [place] [address]DrArturo Kendraghazal Santana MANUAL DIFF REQ NO Normal [facility] Comment on above: Performed By: #### C BC ####[facility] [address] [place], [place] [address]DrArturo Kendraghazal Santana MCH (RBC) [Entitic mass] 26.8 pg Normal 26.7-34.0 [facility] Comment on above: Performed By: #### C BC ####[facility] [address] [place], [place] [address]DrArturo Lupis Max MCHC (RBC) [Mass/Vol] 30.5 g/dL Normal 29.9-35.2 [facility] Comment on above: Performed By: #### C BC ####[facility] [address] [place], [place] [address]DrArturo Santana MCV (RBC) [Entitic vol] 88.0 fL Normal 81.0-99.0 [facility] Comment on above: Performed By: #### C BC ####[facility] [address] [place], [place] [address]DrArturo Santana MONO # 0.5 103/ul Normal 0.3-0.8 [facility] Comment on above: Performed By: #### C BC ####[facility] [address] [place], [place] [address]DrArturo Santana Monocytes/100 WBC (Bld) 8.4 % Normal 1.7-12.0 [facility] Comment on above: Performed By: #### C BC ####[facility] [address] [place] [address] [address]Dr. Lupis Santana NEUT # 3.0 103/ul Normal 1.4-6.5 [facility] Comment on above: Performed By: #### C BC ####[facility] [address] [address]Dr. Lupis Santana Neutrophils/100 WBC (Bld) 56.1 % Normal 43.0-75.0 [facility] Comment on above: Performed By: #### C BC ####[facility] [address] [place] [address]Dr. Lupis Santana Platelet mean volume (Bld) [Entitic vol] 10.4 fL Normal 9.5-13.5 [facility] Comment on above: Performed By: #### C BC ####[facility] [address] [place] [address]Dr. Lupis Santana PLT 300 103/ul Normal 150-450 [facility] Comment on above: Performed By: #### C BC ####[facility] [address] [place], [place] [address]Dr. Lupis Santana RBC 4.40 106/ul Normal 4.20-5.40 [facility] Comment on above: Performed By: #### C BC ####[facility] [address] [place] [address]Dr. Lupis Santana WBC 5.4 103/ul Normal 4.0-11.0 [facility] Comment on above: Performed By: #### C BC ####[facility] [address] [place] [address]Dr. Lupis Santana LIPID PROFILEon 01-13-2022 CHOL-HDL RATIO NORM SEE BELOW Normal [facility] Comment on above: Result Comment: 3.3 - 4.4 LOW RISK 4.4 - 7.1 AVERAGE RISK 7.1 - 11.0 MODERATE RISK >11.0 HIGH RISK Performed By: #### L IPID, CMP, TSH ####[facility] [address] [place] [address]Dr. Lupis Santana Cholesterol [Mass/Vol] 225 mg/dL Critically high <=200 [facility] Comment on above: Performed By: #### L IPID, CMP, TSH ####[facility] [address] [place] [address]Dr. Lupis Santana Cholesterol in HDL [Mass/Vol] 73 mg/dL Critically high 40-60 [facility] Comment on above: Performed By: #### L IPID, CMP, TSH ####[facility] [address] [place] [address]Dr. Lupis Santana Cholesterol in LDL [Mass/Vol] 141.6 mg/dL Normal [facility] Comment on above: Performed By: #### L IPID, CMP, TSH ####[facility] [address] [place] [address]Dr. Lupis Santana Cholesterol.total/ Cholesterol in HDL [Mass ratio] 3.1 {ratio} Normal [facility] Comment on above: Performed By: #### L IPID, CMP, TSH ####[facility] [address] [place] [address]Dr. Lupis Santana HDL NORMAL > or = 60 mg/dl - LO W CARDIOVASCULAR RISK <40 mg/dl - HIGH CARDIOVASCULAR RISK Normal [facility] Comment on above: Performed By: #### L IPID, CMP, TSH ####[facility] [address] [place] [address]Dr. Lupis Santana LDL CALC NORMAL SEE BELOW Normal [facility] Comment on above: Result Comment: <100 mg/dl OPTIMAL 100 - 129 mg/dl NEAR OR ABOVE OPTIMAL 130 - 159 mg/dl BORDERLINE HIGH 160 - 189 mg/dl HIGH >190 mg/dl VERY HIGH Performed By: #### L IPID, CMP, TSH ####[facility] [address] [place] [address]Dr. Lupis Santana Triglyceride [Mass/Vol] 52 mg/dL Normal <=150 [facility] Comment on above: Performed By: #### L IPID, CMP, TSH ####[facility] [address] [place] [address]Dr. Lupis Santana VLDL CALC 10.4 mg/dL Normal [facility] Comment on above: Performed By: #### L IPID, CMP, TSH ####[facility] [address] [place] [address]Dr. Lupis Santana PROF 14(COMP METB)on 022 Albumin [Mass/Vol] 3.6 g/dL Normal 3.4-5.0 [facility] Comment on above: Performed By: #### L IPID, CMP, TSH #### [facility] [address] [address] [address] Lupis Santana Albumin/Globulin [Mass ratio] 1.1 {ratio} Normal [facility] Comment on above: Performed By: #### L IPID, CMP, TSH #### [facility] [address] [address] [address] Lupis Santana ALP [Catalytic activity/Vol] 72 U/L Normal 46-116 [facility] Comment on above: Performed By: #### L IPID, CMP, TSH #### [facility] [address] [address] [address] Lupis Santana ALT [Catalytic activity/Vol] 17 U/L Normal 14-59 [facility] Comment on above: Performed By: #### L IPID, CMP, TSH #### [facility] [address] [address] [address] Lupis Santana Anion gap [Moles/Vol] 13.0 mmol/L Normal [facility] Comment on above: Performed By: #### L IPID, CMP, TSH #### [facility] [address] [address] [address] Lupis Santana AST [Catalytic activity/Vol] 20 U/L Normal 15-37 [facility] Comment on above: Performed By: #### L IPID, CMP, TSH #### [facility] [address] [address] [address] Lupis Santana Bilirubin [Mass/Vol] 0.2 mg/dL Normal 0.2-1.0 [facility] Comment on above: Performed By: #### L IPID, CMP, TSH #### [facility] [address] [address] [address] Lupis Santana Calcium [Mass/Vol] 8.9 mg/dL Normal 8.5-10.1 [facility] Comment on above: Performed By: #### L IPID, CMP, TSH #### [facility] [address] [address] [address] Lupis Santana Chloride [Moles/Vol] 103 mmol/L Normal 98-107 [facility] Comment on above: Performed By: #### L IPID, CMP, TSH #### [facility] [address] [address] [address] Lupis Santana CO2 [Moles/Vol] 26.2 mmol/L Normal 21.0-32.0 [facility] Comment on above: Performed By: #### L IPID, CMP, TSH #### [facility] [address] [place] [address] Dr. Lupis Santana Creatinine [Mass/Vol] 0.71 mg/dL Normal 0.55-1.02 [facility] Comment on above: Performed By: #### L IPID, CMP, TSH #### [facility] [address] [place] [address] Dr. Lupis Satnana EGFR-AF GREEK >60 Normal >=60 [facility] Comment on above: Performed By: #### L IPID, CMP, TSH #### [facility] [address] [place] [address] Dr. Lupis Santana EGFR-NON AF GREEK >60 Normal >=60 [facility] Comment on above: Performed By: #### L IPID, CMP, TSH #### [facility] [address] [address] [address] Lupis Santana Globulin (S) [Mass/Vol] 3.4 g/dL Normal [facility] Comment on above: Performed By: #### L IPID, CMP, TSH #### [facility] [address] [address] [address] Lupis Santana Glucose [Mass/Vol] 102 mg/dL Normal 74-106 [facility] Comment on above: Performed By: #### L IPID, CMP, TSH #### [facility] [address] [address] [address] Lupis Santana Potassium [Moles/Vol] 4.2 mmol/L Normal 3.5-5.1 [facility] Comment on above: Performed By: #### L IPID, CMP, TSH #### [facility] [address] [address] [address] Lupis Santana Protein [Mass/Vol] 7.0 g/dL Normal 6.4-8.2 [facility] Comment on above: Performed By: #### L IPID, CMP, TSH #### [facility] [address] [address] [address] Lupis Santana Sodium [Moles/Vol] 138 mmol/L Normal 136-145 [facility] Comment on above: Performed By: #### L IPID, CMP, TSH #### [facility] [address] [place] [address] Dr. Lupis Santana Urea nitrogen [Mass/Vol] 15.0 mg/dL Normal 7.0-18.0 [facility] Comment on above: Performed By: #### L IPID, CMP, TSH #### [facility] [address] [place] [address] Dr. Lupis Santana Urea nitrogen/Creatinin e [Mass ratio] 21.1 mg/mg Normal [facility] Comment on above: Performed By: #### L IPID, CMP, TSH #### [facility] [address] [address] [address] Lupis Santana TSHon 01-13-2022 TSH 1.162 uIU/mL Normal 0.358-3.740 [facility] Comment on above: Performed By: #### L IPID, CMP, TSH ####[facility] [address] [place] [address]Dr. Lupis Santana TSH RANGE SEE BELOW Normal [facility] Comment on above: Result Comment: <0.3 4 UIU/ml HYPERTHYROID 0.34-5.60 UIU/ml EUTHYROID >5.60 UIU/ml HYPOTHYROID Performed By: #### L IPID, CMP, TSH ####[facility] [address] [place], [place] [address]OqArturo Santana Encounters Encounter Date Encounter Type Care Provider Facility Start: 12-11-2022 End: 12-12-2022 ambulatory HOMAR HICKEY Facility:[facility] Start: 04-15-2022 End: 04-15-2022 ambulatory FRANKLIN DALY Facility:[facility] Start: 01-13-2022 End: 01-14-2022 ambulatory FRANKLIN DALY Facility:[facility] Payers Date Payer Category Payer Unknown [id number] [id number] [id number] 1970 Unknown [id number] 1970 Unknown [id number] [id number] 1960 Medicaid [id number] 1960 Medicare [id number] Summary Purpose Family History No Family History Records Found Advance Directives No Advanced Directives Records Found Additional Source Comments INFORMATION SOURCE (unrecogn ized section and content) DATE CREATED AUTHOR 12/15/2022 [facility] FOR RECORDS PERTAINING TO PATIENTS WHO ARE OR HAVE BEEN ENROLLED IN A CHEMICAL DEPENDENCY/SUBSTANCEABUSE PROGRAM, SOME INFORMATION MAY BE OMITTED. This clinical summary was aggregated from multiple sources. Caution should be exercised in using it in the provision of clinical care. This summary normalizes information from multiple sources, and as a consequence, information in this document may materially change the coding, format and clinical context of patient data. In addition, data may be omitted in some cases. CLINICAL DECISIONS SHOULD BE BASED ON THE PRIMARY CLINICAL RECORDS. [employer] provides no warranty or guarantee of the accuracy or completeness of information in this document.
[2023-12-27] MEDS: 0.9 % SODIUM CHLORIDE 1,000 ML 1000 ML IV ×2 (19:51→22:48)
[2023-12-27] MEDS: KETOROLAC TROMETHAMINE 30 MG/ML VIAL IVP (19:52)
[2023-12-27] MEDS: ONDANSETRON PF 4 MG/2 ML VIAL IV (19:52)
[2023-12-27] MEDS: LEVETIRACETAM 500 MG in 0.9 % SODIUM CHLORIDE 100 ML 420 MG IV (19:54)
[2023-12-27 20:07] LABS: Basophils Absolute Auto 0.1 10^3/uL (0.0-0.1); Eosinophils Absolute Auto 0.2 10^3/uL (0.0-0.7); Eosinophils Percent Auto 3.1 % (0.9-7.0); Hematocrit 41.1 % (36.0-48.0); Hemoglobin 12.9 g/dL (12.0-16.0); Immature Granulocytes Abs Auto 0.03 10^3/uL (0.00-0.03); Immature Granulocytes Pct Auto 0.4 % (0.0-0.5); Lymphocytes Absolute Auto 1.3 10^3/uL (1.2-3.8); Lymphocytes Percent Auto 18.2 % (20.5-60.0); Mean Corpuscular HGB Conc 31.4 g/dL (29.9-35.2); Mean Corpuscular Hemoglobin 27.7 pg (26.7-34.0); Mean Corpuscular Volume 88.4 fL (81.0-99.0); Mean Platelet Volume 9.5 fL (9.5-13.5); Monocytes Absolute Auto 0.5 10^3/uL (0.3-0.8); Monocytes Percent Auto 6.4 % (1.7-12.0); Neutrophils Absolute Auto 5.1 10^3/uL (1.4-6.5); Neutrophils Percent Auto 70.9 % (43.0-75.0); Platelet Count 297 10^3/uL (150-450); Red Blood Count 4.65 10^6/uL (4.20-5.40); Red Cell Distribution Width 14.6 % (11.0-15.0); White Blood Count 7.1 10^3/uL (4.0-11.0)
[2023-12-27 20:08] LABS: Bilirubin Urine NEGATIVE (NEGATIVE); Blood Urine NEGATIVE (NEGATIVE); Glucose Urine UA NEGATIVE (NEGATIVE); Ketones Urine TRACE mg/dL (NEGATIVE); Leukocyte Esterase Urine SMALL (NEGATIVE); Nitrite Urine NEGATIVE (NEGATIVE); Protein Urine 100 mg/dL (NEG/TRACE); Specific Gravity Urine 1.025 (1.005-1.025); Urobilinogen Urine 0.2 EU/dL (0.2-1.0)
[2023-12-27 20:10] LABS: PCO2 VBG 49.1 mmHg (40.0-52.0); pH VBG 7.373 (7.330-7.430)
[2023-12-27 20:15] LABS: Urine Microscopic Indicated YES
[2023-12-27] MEDS: OXYCODONE HCL/ACETAMINOPHEN 5MG/325MG 1 TAB PO (20:17)
[2023-12-27 20:20] LABS: INR 0.93; Prothrombin Time 9.9 sec (9.0-11.6)
[2023-12-27 20:23] LABS: Lactate/Lactic Acid 1.5 mmol/L (0.4-2.0)
[2023-12-27 20:26] LABS: Color Urine DK YELLOW (YELLOW)
[2023-12-27 20:27] LABS: Bacteria Urine NONE SEEN #/HPF (NONE SEEN); Clarity Urine CLOUDY (CLEAR); Mucus Urine MODERATE (NONE SEEN); RBC Urine 0-2 #/HPF (0-2); Squamous Epithelial Cell Urine FEW #/LPF (NONE/RARE)
[2023-12-27 20:28] LABS: Amorphous Sediment Urine MANY; Calcium Oxalate Crystals Urine MODERATE; Cast Seen? NONE SEEN #/LPF (NONE SEEN); Crystals Seen? Seen #/HPF (None Seen); Urine Culture Indicated YES
[2023-12-27 20:32] LABS: Alanine Aminotransferase 16 U/L (14-59); Albumin Globulin Ratio 0.9; Albumin Level 3.4 g/dL (3.4-5.0); Alkaline Phosphatase 98 U/L (46-116); Aspartate Amino Transferase 15 U/L (15-37); Bilirubin Total 0.2 mg/dL (0.2-1.0); Calcium 8.9 mg/dL (8.5-10.1); Carbon Dioxide 29.1 mmol/L (21.0-32.0); Chloride 104 mmol/L (98-107); Estimated GFR (African America >60 (>=60); Estimated GFR (Non-African Ame >60 (>=60); Globulin 3.6 g/dL; Glucose 114 mg/dL (74-106); Magnesium 2.1 mg/dL (1.8-2.4); Potassium 4.1 mmol/L (3.5-5.1); Sodium 140 mmol/L (136-145); Thyroid Stimulating Hormone 0.726 uIU/mL (0.358-3.740); Troponin I High Sensitivity <4.0 pg/mL (4.0-51.3)
[2023-12-27 20:38] LABS: PROCALCITONIN <0.05 ng/mL (0.00-0.50)
[2023-12-27 20:47] LABS: Adenovirus NOT DETECTED (NOT DETECTE); Bordetella parapertussis NOT DETECTED (NOT DETECTE); Coronavirus 229E NOT DETECTED (NOT DETECTE); Coronavirus HKU1 NOT DETECTED (NOT DETECTE); Coronavirus NL63 NOT DETECTED (NOT DETECTE); Coronavirus OC43 NOT DETECTED (NOT DETECTE); Human Metapneumovirus NOT DETECTED (NOT DETECTE); Human Rhinovirus/Enterovirus NOT DETECTED (NOT DETECTE); Influenza A NOT DETECTED (NOT DETECTE); Influenza B NOT DETECTED (NOT DETECTE); Parainfluenza Virus 1 NOT DETECTED (NOT DETECTE); Parainfluenza Virus 2 NOT DETECTED (NOT DETECTE); Parainfluenza Virus 3 NOT DETECTED (NOT DETECTE); Parainfluenza Virus 4 NOT DETECTED (NOT DETECTE); Respiratory Syncytial Virus NOT DETECTED (NOT DETECTE); SARS-CoV-2 NOT DETECTED (NOT DETECTE)
[2023-12-27 20:48] LABS: Mycoplasma pneumoniae NOT DETECTED (NOT DETECTE)
--- NOTE | 2023-12-27 21:38 | CT_ITS ---
The [address] [address] Patient Name: JIMENA MALDONADO MRN: [id number] date: 1970 Sex: F Assigned Patient Location: ER Current Patient Location: Accession/Order Number: [id number] Exam Date: 12/27/2023 21:40 Report Date: 12/27/2023 22:36 At the request of: ETHAN DINH Procedure: CT head/brain wo con INDICATION: 53 years old; Female. Seizure. Headache. TECHNIQUE: CT Head (ax/cor/sag reformats). Ionizing radiation dose reduced via iterative reconstruction/FBP blend and body size kV/mA adjustment. Comparison: MRI the brain dated 12/11/2022. FINDINGS: POSTOPERATIVE CHANGES: None. BRAIN PARENCHYMA: No intraparenchymal or extra-axial hemorrhage. No mass effect. No midline shift or herniation. Normal ac/white differentiation. VENTRICLES/EXTRA-AXIAL SPACES: Normal for patient's age. SINUSES/MASTOIDS: Sinuses are clear although the maxillary sinuses are not completely included. Mastoids and middle ears are clear. MSK: No displaced or depressed fracture. No calvarial deformity. OTHER: Vascular calcification. No hyperdense intraluminal thrombus. CT/CT head/brain wo con IMPRESSION: 1. No acute intracranial abnormality. No hemorrhage or mass effect. Electronically authenticated by: PATRICIO HELMS Date: 12/27/2023 22:36
--- NOTE | 2023-12-27 21:45 | CT_ITS ---
The [address] [address] Patient Name: JIMENA MALDONADO MRN: [id number] date: 1970 Sex: F Assigned Patient Location: ER Current Patient Location: ER Accession/Order Number: [id number] Exam Date: 12/27/2023 21:55 Report Date: 12/27/2023 23:10 At the request of: ETHAN DINH Procedure: CT abdomen pelvis w con EXAM: CT abdomen pelvis w con HISTORY: Vomiting and diarrhea COMPARISON: CT abdomen and pelvis examination dated 04/13/2013. TECHNIQUE: Axial CT images through the abdomen and pelvis were obtained after the intravenous administration of contrast. Coronal and sagittal reformats were obtained. Dose reduction techniques were achieved by using automated exposure control and/or adjustment of mA and/or kV according to patient size and/or use of iterative reconstruction technique. FINDINGS: There is mild bibasilar atelectasis. Abdomen: The liver and spleen enhance homogeneously without focal lesion. There is no intra or extrahepatic biliary duct dilatation. The gallbladder is unremarkable. Liquid stool is seen within the colon without evidence of bowel obstruction. Otherwise, the pancreas, adrenal glands, kidneys, and bowel loops, including the appendix, are unremarkable. There is no mesenteric or retroperitoneal lymphadenopathy. There are postsurgical changes of a cystectomy with a bilateral urinary diversion and right lower quadrant ileostomy. Pelvis: The rectum is unremarkable. There is no iliac or inguinal lymphadenopathy. The uterus is present. The ovaries appear within normal limits by CT. There is mild atherosclerotic disease. Bone windows show no aggressive osseous lesions. CT/CT abdomen pelvis w con IMPRESSION: 1. Liquid stool in the colon, in keeping with diarrhea. There is no evidence of bowel obstruction. 2. Normal appendix. 3. Status post cystectomy with bilateral urinary diversion and right lower quadrant ileostomy. Electronically authenticated by: Addis NAVA Date: 12/27/2023 23:10
[2023-12-27] MEDS: CEFTRIAXONE 1,000 MG in 0.9 % SODIUM CHLORIDE 50 ML 100 MG IV (22:48)
--- NOTE | 2023-12-27 23:30 | ED_ITS ---
HPI HPI - General Adult General Chief complaint: Nausea/Vomiting/Diarrhea Stated complaint: General Weakness Time Seen by Provider: 12/27/23 19:07 Source: patient Mode of arrival: ambulance Limitations: no limitations History of Present Illness HPI narrative: This 53-year-old female with a history of MS and seizures and who is on Keppra and followed by advanced neurology was seen and evaluated in conjunction with the physician nutritional assistant. Please refer to her full H&P. The patient presents for evaluation of headache, nausea vomiting and diarrhea for the past several days and according to EMS she had a seizure earlier today. Upon arrival the patient does not appear to be postictal. She is awake and alert. She has contractures of her extremities. Several IVs were placed due to them infiltrating and/or falling out but ultimately she was able to get workup including CBC with differential, comprehensive metabolic profile, urinalysis, CT scan of the brain and CT scan of the abdomen pelvis. She was noted to have a low blood pressure throughout her department stay. Her urine was positive for white blood cells and she was medicated with Rocephin for this. She does have a urostomy tube and urine will be cultured. She has a normal CBC with differential. She has a normal troponin. She has a normal lactic acid. Electrolytes are normal. CT scan of the brain was negative for acute findings and CT scan of the abdomen pelvis with IV contrast does not show any acute findings besides liquid stool consistent with her diarrheal illness. Her blood pressure has been moderately low despite receiving fluids however she has not required any vasopressors. At the time of this dictation her blood pressures in the 130s over 70s. The case was discussed with the hospitalist and she is accepted for admission, med/surg, observation status Related Data Home Medications ?Medication ?Instructions ?Recorded ?Confirmed amitriptyline 25 mg tablet mg 12/27/23 atorvastatin 10 mg tablet mg 12/27/23 carisoprodol 350 mg tablet mg 12/27/23 levetiracetam 500 mg tablet 700 mg PO Q12H 12/27/23 12/27/23 mirtazapine 15 mg tablet mg 12/27/23 pantoprazole 40 mg tablet,delayed mg PO 12/27/23 release venlafaxine 150 mg mg PO 12/27/23 capsule,extended release 24 hr Allergies Allergy/AdvReac Type Severity Reaction Status Date / Time Penicillins Allergy Unknown Verified 12/27/23 19:12 Opioid HPI Opioid Management Most Recent Opioid Data: Last Pain Scale 10 12/27/23 20:17 Ur Phencyclidine Scrn Negative (NEGATIVE) 11/24/23 10:00 Exam Constitutional Vital Signs, click to edit/add: Last Vital Signs Temp 98.3 F 12/27/23 19:09 Pulse 79 12/27/23 23:32 Resp 16 12/27/23 22:12 BP 133/76 12/27/23 23:32 Pulse Ox 94 L 12/27/23 22:50 O2 Del Method Room Air 12/27/23 19:09 Course Vital Signs Vital signs: Vital Signs Temperature 98.3 F 12/27/23 19:09 Pulse Rate 100 H 12/27/23 19:09 Respiratory Rate 18 12/27/23 19:09 Blood Pressure 85/65 L 12/27/23 19:09 Pulse Oximetry 94 L 12/27/23 19:09 Oxygen Delivery Method Room Air 12/27/23 19:09 Temperature 98.3 F 12/27/23 19:09 Pulse Rate 79 12/27/23 23:32 Respiratory Rate 16 12/27/23 22:12 Blood Pressure 133/76 12/27/23 23:32 Pulse Oximetry 94 L 12/27/23 22:50 Oxygen Delivery Method Room Air 12/27/23 19:09 Medical Decision Making [facility] Narrative Medical decision making narrative: see my note in HPI Medical Records Medical records narrative: [place] [address] CT Scan Report Signed Patient: JIMENA MALDONADO MR#: [id number] : 1970 Acct:[id number] Age/Sex: 53 / F ADM Date: 12/27/23 Loc: ER Attending Dr: Ordering Physician: Ethan Dinh Date of Service: 12/27/23 Procedure(s): CT abdomen pelvis w con Accession Number(s): [id number] cc: Lyle Quezada ~ [facility] [place] [address] Patient Name: JIMENA MALDONADO MRN: [id number] date: 1970 Sex: F Assigned Patient Location: ER Current Patient Location: ER Accession/Order Number: [id number] Exam Date: 12/27/2023 21:55 Report Date: 12/27/2023 23:10 At the request of: ETHAN DINH Procedure: CT abdomen pelvis w con EXAM: CT abdomen pelvis w con HISTORY: Vomiting and diarrhea COMPARISON: CT abdomen and pelvis examination dated 04/13/2013. TECHNIQUE: Axial CT images through the abdomen and pelvis were obtained after the intravenous administration of contrast. Coronal and sagittal reformats were obtained. Dose reduction techniques were achieved by using automated exposure control and/or adjustment of mA and/or kV according to patient size and/or use of iterative reconstruction technique. FINDINGS: There is mild bibasilar atelectasis. Abdomen: The liver and spleen enhance homogeneously without focal lesion. There is no intra or extrahepatic biliary duct dilatation. The gallbladder is unremarkable. Liquid stool is seen within the colon without evidence of bowel obstruction. Otherwise, the pancreas, adrenal glands, kidneys, and bowel loops, including the appendix, are unremarkable. There is no mesenteric or retroperitoneal lymphadenopathy. There are postsurgical changes of a cystectomy with a bilateral urinary diversion and right lower quadrant ileostomy. Pelvis: The rectum is unremarkable. There is no iliac or inguinal lymphadenopathy. The uterus is present. The ovaries appear within normal limits by CT. There is mild atherosclerotic disease. Bone windows show no aggressive osseous lesions. CT/CT abdomen pelvis w con IMPRESSION: 1. Liquid stool in the colon, in keeping with diarrhea. There is no evidence of bowel obstruction. 2. Normal appendix. 3. Status post cystectomy with bilateral urinary diversion and right lower quadrant ileostomy. Electronically authenticated by: Addis NAVA Date: 12/27/2023 23:10 Lab Data Labs: Lab Results 12/27/23 12/27/23 12/27/23 Range/Units 19:00 19:49 20:44 WBC 7.1 (4.0-11.0) 10^3/uL RBC 4.65 (4.20-5.40) 10^6/uL Hgb 12.9 (12.0-16.0) g/dL Hct 41.1 (36.0-48.0) % MCV 88.4 (81.0-99.0) fL MCH 27.7 (26.7-34.0) pg MCHC 31.4 (29.9-35.2) g/dL RDW 14.6 (11.0-15.0) % Plt Count 297 (150-450) 10^3/uL MPV 9.5 (9.5-13.5) fL Neut % (Auto) 70.9 (43.0-75.0) % Lymph % (Auto) 18.2 L (20.5-60.0) % [place] % (Auto) 6.4 (1.7-12.0) % Eos % (Auto) 3.1 (0.9-7.0) % Baso % (Auto) 1.0 (0.2-2.0) % Neut # (Auto) 5.1 (1.4-6.5) 10^3/uL Lymph # (Auto) 1.3 (1.2-3.8) 10^3/uL [place] # (Auto) 0.5 (0.3-0.8) 10^3/uL Eos # (Auto) 0.2 (0.0-0.7) 10^3/uL Baso # (Auto) 0.1 (0.0-0.1) 10^3/uL Abs Immat Gran (auto) 0.03 (0.00-0.03) 10^3/uL Imm/Tot Granulo (auto) 0.4 (0.0-0.5) % PT 9.9 (9.0-11.6) sec INR 0.93 VBG pH 7.373 (7.330-7.430) VBG pCO2 49.1 (40.0-52.0) mmHg Sodium 140 (136-145) mmol/L Potassium 4.1 (3.5-5.1) mmol/L Chloride 104 (98-107) mmol/L Carbon Dioxide 29.1 (21.0-32.0) mmol/L Anion Gap 11.0 BUN 15.0 (7.0-18.0) mg/dL Creatinine 0.88 (0.55-1.02) mg/dL Est GFR ( Amer) >60 (>=60) Est GFR (Non-Af Amer) >60 (>=60) BUN/Creatinine Ratio 17.0 Glucose 114 H (74-106) mg/dL Lactate 1.5 (0.4-2.0) mmol/L Calcium 8.9 (8.5-10.1) mg/dL Magnesium 2.1 (1.8-2.4) mg/dL Total Bilirubin 0.2 (0.2-1.0) mg/dL AST 15 (15-37) U/L ALT 16 (14-59) U/L Alkaline Phosphatase 98 (46-116) U/L Troponin I High Sens <4.0 L (4.0-51.3) pg/mL Total Protein 7.0 (6.4-8.2) g/dL Albumin 3.4 (3.4-5.0) g/dL Globulin 3.6 g/dL Albumin/Globulin Ratio 0.9 Lipase 11.0 L (16.0-77.0) U/L Procalcitonin <0.05 (0.00-0.50) ng/mL TSH 0.726 (0.358-3.740) uIU/mL Urine Color Dk yellow (YELLOW) Urine Clarity Cloudy A (CLEAR) Urine pH 7.0 (5.0-9.0) Ur Specific [place] 1.025 (1.005-1.025) Urine Protein 100 A (NEG/TRACE) mg/dL Urine Glucose (UA) Negative (NEGATIVE) mg/dL Urine Ketones Trace A (NEGATIVE) mg/dL Urine Occult Blood Negative (NEGATIVE) Urine Nitrite Negative (NEGATIVE) Urine Bilirubin Negative (NEGATIVE) Urine Urobilinogen 0.2 (0.2-1.0) EU/dL Ur Leukocyte Esterase Small A (NEGATIVE) Urine RBC 0-2 (0-2) #/HPF Urine WBC 10-20 A (NONE SEEN) #/HPF Ur Squamous Epith Cells Few A (NONE/RARE) #/LPF Urine Crystals Seen A (None Seen) #/HPF Calcium Oxalate Crystal Moderate Amorphous Sediment Many Urine Bacteria None seen (NONE SEEN) #/HPF Urine Casts None seen (NONE SEEN) #/LPF Urine Mucus Moderate A (NONE SEEN) Ur Culture Indicated? Yes Adenovirus (PCR) Not detected (NOT DETECTE) B. pertussis DNA (PCR) Not detected (NOT DETECTE) B.parapertussis DNA PCR Not detected (NOT DETECTE) C. pneumoniae DNA (PCR) Not detected (NOT DETECTE) Coronavirus Type OC43 Not detected (NOT DETECTE) Coronavirus Type HKU1 Not detected (NOT DETECTE) Coronavirus Type 229E Not detected (NOT DETECTE) Coronavirus Type NL63 Not detected (NOT DETECTE) Human Metapneumovir PCR Not detected (NOT DETECTE) Influenza Type A (PCR) Not detected (NOT DETECTE) Influenza Type B (PCR) Not detected (NOT DETECTE) M. pneumoniae (PCR) Not detected (NOT DETECTE) Parainfluenza PCR Not detected (NOT DETECTE) Parainfluenza 2 (PCR) Not detected (NOT DETECTE) Parainfluenza 3 (PCR) Not detected (NOT DETECTE) Parainfluenza 4 (PCR) Not detected (NOT DETECTE) RSV (RT-PCR) Not detected (NOT DETECTE) Entero/Rhino (PCR) Not detected (NOT DETECTE) SARS-CoV-2 (PCR) Not detected (NOT DETECTE) Discharge Plan Discharge Chief Complaint: Nausea/Vomiting/Diarrhea Clinical Impression: Vomiting and diarrhea, Generalized weakness, Hypotension Patient Disposition: Admitted as Observation Time of Disposition Decision: 23:36 Condition: Good
[2023-12-28] VITALS: PULSE 76
[2023-12-28 00:01] VITALS: BP 121/85; PULSE 73
[2023-12-28 00:10] VITALS: PULSE 89
[2023-12-28] MEDS: MORPHINE SULFATE 4 MG/ML VIAL IV (00:17)
[2023-12-28 00:20] VITALS: PULSE 89
[2023-12-28 00:32] VITALS: PULSE 91
[2023-12-30 15:11] LABS: Levetiracetam (Keppra), S 11.8 ug/mL (10.0-40.0)
== END 2023-12-28 01:10 | disposition left against medical advice (07) ==
PROVIDERS: Physician Assistant; Emergency Provider Emergency Medicine; PCP Physician Assistant
DX: R53.1 Weakness (principal); R19.7 Diarrhea, unspecified; R11.10 Vomiting, unspecified; I95.9 Hypotension, unspecified; R56.9 Unspecified convulsions; G35 Multiple sclerosis; Z79.899 Other long term (current) drug therapy; Z20.822 Contact with and (suspected) exposure to COVID-19; Z53.29 Procedure and treatment not carried out because of patient's decision for other reasons
CPT/HCPCS: 0202U; 36415; 70450; 74177; 80053; 80177; 81001; 82800; 83605; 83690; 83735; 84145; 84443; 84484; 85025; 85610; 87040; 87086; 87150; 87186; 87493; 93005; 96361; 96365; 96367; 96375; 99285; Q9967

== ENCOUNTER 2024-04-27 07:23 | Observation (INO) | payer MEDICARE, MEDICAID, SELFPAY ==
[2024-04-27] VITALS (31 sets, daily range): BP systolic 71–118; BP diastolic 42–80; PULSE 76–98; TEMP 36.4–36.6; O2SAT 87–100; BMI 28.3; BMI 31.2
--- NOTE | 2024-04-27 07:27 | ECG_ITS ---
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
--- OUTSIDE RECORDS SUMMARY | 2024-04-27 07:50 | XMS_ITS | CCD ---
Author Organization [facility] Inform ion Partnership [facility] Care Team Providers Care Fur Designer Name Role Phone FRANKLIN DALY Primary Care Unavailable MANUEL ., MARY Admitting Unavailable MANUEL ., MARY Attending Unavailable ANYI PRIETO Consulting Unavailable LAUREN RANDLE Consulting Unavailable HOMAR HICKEY Admitting Unavailable HOMAR HICKEY Attending Unavailable FRANKLIN DALY Primary Care Unavailable DR AMBER LILLY V Consulting Unavailable SUNNY, DR LUIS Herrera Consulting Unavailable HOMAR HICKEY Consulting Unavailable FRANKLIN DALY Admitting Unavailable FRANKLIN DALY Attending Unavailable FRANKLIN DALY Primary Care Unavailable FRANKLIN DALY Consulting Unavailable Allergies Allergy Classification Reported Allergen(s) Allergy Type Date of Onset Reaction(s) Facility (1 source) Penicillins Drug allergy (disorder) 05-04-2013 [facility] [place] Repository Problems Active Problems Problem Classification Problem [...] by: LUIS CORREA Date: 2022-12-12 07:24 Normal [facility] MRI LSPINE WO CONon 12-13-19 23 MRI [...] AMBER LILLY Date: 2022-12-12 07:21 Normal [facility] [place] CULTURE URINEon 04-18-2022 CULTURE URINE Isolate 1 [...] Trimethoprim/Sulfamet hoxazole <=20 S F Normal [facility] [place] Comment on above: Performed By: #### U RCX #### [facility] [place] Laboratory [address] [place], [place] [address] Dr. Lupis Santana CBC AUTO DIFFon 04-15-2022 BASO # 0.0 103/ul Normal 0.0-0.1 [facility] [place] Comment on above: Performed By: #### C BC ####[facility] [place] [address] [place], [place] [address]JzDr. Lupis Santana Basophils/100 WBC (Bld) 0.6 % Normal 0.2-2.0 [facility] [place] Comment on above: Performed By: #### C BC ####[facility] [place] [address] [place] [id number] Santana EO # 0.0 103/ul Normal 0.0-0.7 [facility] [place] Comment on above: Performed By: #### C BC ####[facility] [place] [address] [place] [id number]. Lupis Santana Eosinophils/100 WBC (Bld) 0.3 % Critically low 0.9-7.0 [facility] [place] Comment on above: Performed By: #### C BC ####[facility] [place] [address] [place] [address]Dr. Lupis Santana Erythrocyte distribution width (RBC) [Ratio] 13.9 % Normal 11.0-15.0 [facility] [place] Comment on above: Performed By: #### C BC ####[facility] [place] [address] [place], [place] [address]Dr. Lupis Santana Hematocrit (Bld) [Volume fraction] 37.7 % Normal 36.0-48.0 [facility] [place] Comment on above: Performed By: #### C BC ####[facility] [place] [address] [place], [place] [address]Dr. Lupis Santana Hemoglobin (Bld) [Mass/Vol] 11.9 g/dL Critically low 12.0-16.0 [facility] [place] Comment on above: Performed By: #### C BC ####[facility] [place] [address] [place], [place] [address]Dr. Lupis Santana IG # 0.01 10e3/ul Normal 0.00-0.03 [facility] [place] Comment on above: Performed By: #### C BC ####[facility] [place] [address] [place], [place] [address]Dr. Lupis Santana IG % 0.3 % Normal 0.0-0.5 [facility] [place] Comment on above: Performed By: #### C BC ####[facility] [place] [address] [place], [place] [address]Dr. Lupis Santana LYMPH # 1.3 103/ul Normal 1.2-3.8 [facility] [place] Comment on above: Performed By: #### C BC ####[facility] [place] [address] [place], [place] [address]Dr. Lupis Santana Lymphocytes/100 WBC (Bld) 36.3 % Normal 20.5-60.0 [facility] Comment on above: Performed By: #### C BC ####[facility] [place] [address] [place] [address]Dr. Lupis Santana MANUAL DIFF REQ NO Normal [facility] Comment on above: Performed By: #### C BC ####[facility] [place] [address] [place] [id number]. Lupis Santana MCH (RBC) [Entitic mass] 27.4 pg Normal 26.7-34.0 [facility] Comment on above: Performed By: #### C BC ####[facility] [place] [address] [place] [address]Dr. Lupis Santana MCHC (RBC) [Mass/Vol] 31.6 g/dL Normal 29.9-35.2 [facility] [place] Comment on above: Performed By: #### C BC ####[facility] [place] [address] [place], [place] [address]Dr. Lupis Santana MCV (RBC) [Entitic vol] 86.7 fL Normal 81.0-99.0 [facility] Comment on above: Performed By: #### C BC ####[facility] [place] [address] [place], [place] [address]Dr. Lupis Santana MONO # 0.6 103/ul Normal 0.3-0.8 [facility] Comment on above: Performed By: #### C BC ####[facility] [place] [address] [place] [address]Dr. Lupis Santana Monocytes/100 WBC (Bld) 15.4 % Critically high 1.7-12.0 [facility] Comment on above: Performed By: #### C BC ####[facility] [place] [address] [place], [place] [address]Dr. Lupis Santana NEUT # 1.7 103/ul Normal 1.4-6.5 [facility] [place] Comment on above: Performed By: #### C BC ####[facility] [place] [address] [place], [place] [address]Dr. Lupis Santana Neutrophils/100 WBC (Bld) 47.1 % Normal 43.0-75.0 [facility] [place] Comment on above: Performed By: #### C BC ####[facility] [place] [address] [place] [id number]. Lupis Santana Platelet mean volume (Bld) [Entitic vol] 9.1 fL Critically low 9.5-13.5 [facility] Comment on above: Performed By: #### C BC ####[facility] [place] [address] [place] [address]Dr. Lupis Santana PLT 189 103/ul Normal 150-450 [facility] [place] Comment on above: Performed By: #### C BC ####[facility] [place] [address] [place] [address]Dr. Lupis Santana RBC 4.35 106/ul Normal 4.20-5.40 [facility] [place] Comment on above: Performed By: #### C BC ####[facility] [place] [address] [place] [address]Dr. Lupis Santana WBC 3.6 103/ul Critically low 4.0-11.0 [facility] Comment on above: Performed By: #### C BC ####[facility] [place] [address] [place] [phone]. Lupis Santana Covid-19 PCR (CVDTB)on 04-03 SARS-CoV-2 (COVID-19) RNA BARBARA+probe Ql (Unsp spec) Detected Critically abnormal NOT DETECTED [facility] [place] Comment on above: Result Comment: This test is not yet approved or cleared by the [place] FDA. When there are no FDA-approved or cleared tests available, and other criteria are met, FDA can make tests available under an emergency access mechanism called an Emergency Use Authorization (EUA). The EUA for this test is supported by the [place] of Health and Human Service's declaration that [...] used). Performed By: #### C VDTBH #### [facility] [place] [facility] [address] [place] [address] [address] Lupis Santana ER URINE PROFILEon 2 Bilirubin Ql (U) Negative Normal NEGATIVE [facility] Comment on above: Performed By: #### Danilo HAND UMICRO #### [facility] [place] [facility] [address] [place] [address] Dr. Lupis Santana Clarity (U) SL CLOUDY Abnormal CLEAR [facility] Comment on above: Performed By: #### Danilo HAND UMICRO #### [facility] [place] [facility] [address] [place] [address] Dr. Lupis Santana Color (U) YELLOW Normal YELLOW [facility] Comment on above: Performed By: #### OMID VALIENTERO #### [facility] [place] [facility] [address] [place] [address] Dr. Lupis SANCHEZ A micrscopic examination will be performed if indicated. Normal [facility] [place] Comment on above: Performed By: #### PINKY VALIENTEICRO #### [facility] [place] [facility] [address] [place] [address] Dr. Lupis Santana Glucose Ql (U) Negative Normal NEGATIVE [facility] Comment on above: Performed By: #### OMID VALIENTERO #### [facility] [place] [facility] [address] [place] [address] Dr. Lupis Santana Hemoglobin Ql (U) Negative Normal NEGATIVE [facility] Comment on above: Performed By: #### PINKY VALIENTEICRO #### [facility] [place] [facility] [address] [place] [address] [address] Lupis Santana Ketones Ql (U) Negative Normal NEGATIVE [facility] [place] Comment on above: Performed By: #### OMID VALIENTERO #### [facility] [place] [facility] [address] [place] [address] Dr. Lupis Santana LEUKOCYTES Negative Normal NEGATIVE [facility] Comment on above: Performed By: #### PINKY VALIENTEICRO #### [facility] [place] [facility] [address] [place] [address] Dr. Lupis Santana Nitrite Ql (U) Positive Abnormal NEGATIVE [facility] [place] Comment on above: Performed By: #### Danilo HAND, UMICRO #### [facility] [place] [facility] [address] [place] [address] Dr. Lupis Santana pH (U) 6.0 [pH] Normal 5-9 [facility] Comment on above: Performed By: #### Danilo HAND, UMICRO #### [facility] [place] [facility] [address] [place] [address] Dr. Lupis Santana SPEC GRAVITY 1.020 Normal 1.005-<=1.025 [facility] Comment on above: Performed By: #### Danilo HAND, UMICRO #### [facility] [place] [facility] [address] [place] [address] Dr. Lupis Santana UA PROTEIN Negative Normal NEGATIVE/ TRACE [facility] Comment on above: Performed By: #### Danilo HAND, UMICRO #### [facility] [place] [facility] [address] [place] [address] Dr. Lupis Santana UR MICRO IND INDICATED Normal [facility] Comment on above: Performed By: #### Danilo HAND, UMICRO #### [facility] [place] [facility] [address] [place] [address] Dr. Lupis Santana Urobilinogen Qn (U) 1.0 {Batsheva'U}/dL Normal 0.2 - 1.0 [facility] Comment on above: Performed By: #### Danilo HAND, UMICRO #### [facility] [place] [facility] [address] [place] [address] Dr. Lupis Santana LACTATE/LACTIC ACIDon 2021 Lactate [Moles/Vol] 0.5 mmol/L Normal 0.4-1.9 [facility] Comment on above: Performed By: #### L ACT #### [facility] [place] [facility] [address] [place] [address] Dr. Lupis Santana PROF 14(COMP METB)on 022 Albumin [Mass/Vol] 3.5 g/dL Normal 3.4-5.0 [facility] Comment on above: Performed By: #### C MP #### [facility] [place] [facility] [address] [place] [address] Dr. Lupis Santana Albumin/Globulin [Mass ratio] 1.0 {ratio} Normal [facility] Comment on above: Performed By: #### C MP #### [facility] [place] [facility] [address] [place] [address] Dr. Lupis Santana ALP [Catalytic activity/Vol] 76 U/L Normal 46-116 [facility] Comment on above: Performed By: #### C MP #### [facility] [place] [facility] [address] [place] [address] [address] Lupis Santana ALT [Catalytic activity/Vol] 17 U/L Normal 14-59 [facility] Comment on above: Performed By: #### C MP #### [facility] [place] [facility] [address] [place] [address] Dr. Lupis Santana Anion gap [Moles/Vol] 9.9 mmol/L Normal [facility] Comment on above: Performed By: #### C MP #### [facility] [place] [facility] [address] [place] [address] Dr. Lupis Santana AST [Catalytic activity/Vol] 18 U/L Normal 15-37 [facility] Comment on above: Performed By: #### C MP #### [facility] [place] [facility] [address] [place] [address] Dr. Lupis Santana Bilirubin [Mass/Vol] 0.3 mg/dL Normal 0.2-1.0 [facility] Comment on above: Performed By: #### C MP #### [facility] [place] [facility] [address] [place] [address] Dr. Lupis Santana Calcium [Mass/Vol] 8.7 mg/dL Normal 8.5-10.1 [facility] Comment on above: Performed By: #### C MP #### [facility] [place] [facility] [address] [place] [address] Dr. Lupis Santana Chloride [Moles/Vol] 104 mmol/L Normal 98-107 [facility] Comment on above: Performed By: #### C MP #### [facility] [place] [facility] [address] [place] [address] Dr. Lupis Santana CO2 [Moles/Vol] 25.8 mmol/L Normal 21.0-32.0 [facility] Comment on above: Performed By: #### C MP #### [facility] [place] [facility] [address] [place] [address] [address] Lupis Santana Creatinine [Mass/Vol] 0.81 mg/dL Normal 0.55-1.02 [facility] [place] Comment on above: Performed By: #### C MP #### [facility] [place] [facility] [address] [place] [address] [address] Lupis Santana EGFR-AF [place] >60 Normal >=60 [facility] Comment on above: Performed By: #### C MP #### [facility] [place] [facility] [address] [place] [address] [address] Lupis Santana EGFR-NON AF [place] >60 Normal >=60 [facility] Comment on above: Performed By: #### C MP #### [facility] [place] [facility] [address] [place] [address] Dr. Lupis Santana Globulin (S) [Mass/Vol] 3.4 g/dL Normal [facility] Comment on above: Performed By: #### C MP #### [facility] [place] [facility] [address] [place] [address] [address] Lupis Santana Glucose [Mass/Vol] 105 mg/dL Normal 74-106 [facility] Comment on above: Performed By: #### C MP #### [facility] [place] [facility] [address] [place] [address] Dr. Lupis Santana Potassium [Moles/Vol] 3.7 mmol/L Normal 3.5-5.1 [facility] [place] Comment on above: Performed By: #### C MP #### [facility] [place] [facility] [address] [place] [address] Dr. Lupis Santana Protein [Mass/Vol] 6.9 g/dL Normal 6.4-8.2 [facility] Comment on above: Performed By: #### C MP #### [facility] [place] [facility] [address] [place] [address] Dr. Lupis Santana Sodium [Moles/Vol] 136 mmol/L Normal 136-145 [facility] Comment on above: Performed By: #### C MP #### [facility] [place] [facility] [address] [place] [address] [address] Lupis Santana Urea nitrogen [Mass/Vol] 11.0 mg/dL Normal 7.0-18.0 [facility] [place] Comment on above: Performed By: #### C MP #### [facility] [place] [facility] [address] [place] [id number] [address] Lupis Santana Urea nitrogen/Creatinin e [Mass ratio] 13.6 mg/mg Normal [facility] [place] Comment on above: Performed By: #### C MP #### [facility] [place] [facility] [address] [place] [address] [address] Lupis Santana TROPONIN, HIGH SENSITIVITYon 04-15-2022 HSTROP 4.9 pg/mL Normal 4.0-51.3 [facility] [place] Comment on above: Result Comment: CUT- OFF POINTS HAVE BEEN ESTABLISHED BASED ON THE FOURTH UNIVERSAL DEFINITIONS OF MYOCARDIAL INFARCTION. THE UPPER REFERENCE LIMIT (URL) OF TROPONIN, DEFINED THE 99TH PERCENTILE OF cTnI DISTRIBUTION IN A REFERENCE POPULATION, HAS BEEN CONFIRMED THE DECISION THRESHOLD FOR MS DIAGNOSIS. Performed By: #### H STROPN #### [facility] [place] [facility] [address] [place] [address] Dr. Lupis Santana HSTROP 4.1 pg/mL Normal 4.0-51.3 [facility] [place] Comment on above: Result Comment: CUT- OFF POINTS HAVE BEEN ESTABLISHED BASED ON THE FOURTH UNIVERSAL DEFINITIONS OF MYOCARDIAL INFARCTION. THE UPPER REFERENCE LIMIT (URL) OF TROPONIN, DEFINED THE 99TH PERCENTILE OF cTnI DISTRIBUTION IN A REFERENCE POPULATION, HAS BEEN CONFIRMED THE DECISION THRESHOLD FOR MS DIAGNOSIS. Performed By: #### H ILDEFONSOPN ####[facility] [place] [address] [place] [address]Dr. Lupis Santana URINE MICROSCOPIC ONLYon BACTERIA LARGE Abnormal NONE SEEN [facility] [place] Comment on above: Performed By: #### THERESA VALIENTE #### [facility] [place] [facility] [address] [place], [place] [id number] Dr. Lupis Santana Bacteria identified Cx Nom (U) INDICATED Normal [facility] [place] Comment on above: Performed By: #### THERESA VALIENTE #### [facility] [place] [facility] [address] [place] [address] Dr. Lupis Santana CAST NONE SEEN Normal NONE SEEN [facility] [place] Comment on above: Performed By: #### Danilo HAND UMICRO #### [facility] [place] [facility] [address] [place] [address] Dr. Lupis Santana Crystals LM Nom (Urine sed) NONE SEEN Normal NONE SEEN [facility] Comment on above: Performed By: #### Danilo HAND UMICRO #### [facility] [place] [facility] [address] [place] [address] Dr. Lupis Santana Epithelial cells LM Ql (Urine sed) RARE Normal NONE SEEN /RARE [facility] [place] Comment on above: Performed By: #### Danilo HAND UMICRO #### [facility] [place] [facility] [address] [place] [address] Dr. Lupis Santana MUCOUS TRACE Abnormal NONE SEEN [facility] Comment on above: Performed By: #### Danilo HAND UMICRO #### [facility] [place] [facility] [address] [place] [address] Dr. Lupis Santana RBC 0-2 Normal 0-2 [facility] Comment on above: Performed By: #### Danilo HAND UMICRO #### [facility] [place] [facility] [address] [place] [address] Dr. Lupis Santana WBC 5-10 Abnormal NONE SEEN [facility] [place] Comment on above: Performed By: #### Danilo HAND UMICRO #### [facility] [place] [facility] [address] [place] [address] Dr. Lupis Santana XR CHEST 1 Von [...] LAUREN RANDLE Date: 2022-04-15 16:09 Normal [facility] [place] CBC AUTO DIFFon 01-13-2022 BASO # 0.1 103/ul Normal 0.0-0.1 [facility] [place] Comment on above: Performed By: #### C BC ####[facility] [place] [address] [place] [address]Dr. Lupis Santana Basophils/100 WBC (Bld) 1.1 % Normal 0.2-2.0 [facility] [place] Comment on above: Performed By: #### C BC ####[facility] [place] [address] [place], [place] [address]Dr. Lupis Santana EO # 0.1 103/ul Normal 0.0-0.7 [facility] [place] Comment on above: Performed By: #### C BC ####[facility] [place] [address] [place], [place] [address]Dr. Lupis Santana Eosinophils/100 WBC (Bld) 2.2 % Normal 0.9-7.0 [facility] [place] Comment on above: Performed By: #### C BC ####[facility] [place] [address] [place], [place] [address]Dr. Lupis Santana Erythrocyte distribution width (RBC) [Ratio] 14.4 % Normal 11.0-15.0 [facility] [place] Comment on above: Performed By: #### C BC ####[facility] [place] [address] [place], [place] [address]Dr. Lupis Santana Hematocrit (Bld) [Volume fraction] 38.7 % Normal 36.0-48.0 [facility] [place] Comment on above: Performed By: #### C BC ####[facility] [place] [address] [place], [place] [address]Dr. Lupis Santana Hemoglobin (Bld) [Mass/Vol] 11.8 g/dL Critically low 12.0-16.0 [facility] [place] Comment on above: Performed By: #### C BC ####[facility] [place] [address] [place], [place] [address]Dr. Lupis Santana IG # 0.02 10e3/ul Normal 0.00-0.03 [facility] [place] Comment on above: Performed By: #### C BC ####[facility] [place] [address] [place], [place] [address]DrArturo Santana IG % 0.4 % Normal 0.0-0.5 [facility] Comment on above: Performed By: #### C BC ####[facility] [place] [address] [place] [address]DrArturo Santana LYMPH # 1.7 103/ul Normal 1.2-3.8 [facility] Comment on above: Performed By: #### C BC ####[facility] [place] [address] [place] [address]DrArturo Santana Lymphocytes/100 WBC (Bld) 31.8 % Normal 20.5-60.0 [facility] [place] Comment on above: Performed By: #### C BC ####[facility] [place] [address] [place], [place] [address]DrArturo Santana MANUAL DIFF REQ NO Normal [facility] Comment on above: Performed By: #### C BC ####[facility] [place] [address] [place] [address]DrArturo Santana MCH (RBC) [Entitic mass] 26.8 pg Normal 26.7-34.0 [facility] Comment on above: Performed By: #### C BC ####[facility] [place] [address] [place], [place] [address]DrArturo Santana MCHC (RBC) [Mass/Vol] 30.5 g/dL Normal 29.9-35.2 [facility] [place] Comment on above: Performed By: #### C BC ####[facility] [place] [address] [place], [place] [address]DrArturo Santana MCV (RBC) [Entitic vol] 88.0 fL Normal 81.0-99.0 [facility] [place] Comment on above: Performed By: #### C BC ####[facility] [place] [address] [place], [place] [address]DrArturo Santana MONO # 0.5 103/ul Normal 0.3-0.8 [facility] Comment on above: Performed By: #### C BC ####[facility] [place] [address] [place], [place] [address]DrArturo Santana Monocytes/100 WBC (Bld) 8.4 % Normal 1.7-12.0 [facility] [place] Comment on above: Performed By: #### C BC ####[facility] [place] [address] [place] [address]Dr. Lupis Santana NEUT # 3.0 103/ul Normal 1.4-6.5 [facility] [place] Comment on above: Performed By: #### C BC ####[facility] [place] [address] [place] [address]Dr. Lupis Santana Neutrophils/100 WBC (Bld) 56.1 % Normal 43.0-75.0 [facility] [place] Comment on above: Performed By: #### C BC ####[facility] [place] [address] [place] [address]Dr. Lupis Santana Platelet mean volume (Bld) [Entitic vol] 10.4 fL Normal 9.5-13.5 [facility] [place] Comment on above: Performed By: #### C BC ####[facility] [place] [address] [place] [address]Dr. Lupis Santana PLT 300 103/ul Normal 150-450 [facility] [place] Comment on above: Performed By: #### C BC ####[facility] [place] [address] [place], [place] [address]Dr. Lupis Santana RBC 4.40 106/ul Normal 4.20-5.40 [facility] [place] Comment on above: Performed By: #### C BC ####[facility] [place] [address] [place] [address]Dr. Lupis Santana WBC 5.4 103/ul Normal 4.0-11.0 [facility] [place] Comment on above: Performed By: #### C BC ####[facility] [place] [address] [place] [address]Dr. Lupis Santana LIPID PROFILEon 01-13-2022 CHOL-HDL RATIO NORM SEE BELOW Normal [facility] [place] Comment on above: Result Comment: 3.3 - 4.4 LOW RISK 4.4 - 7.1 AVERAGE RISK 7.1 - 11.0 MODERATE RISK >11.0 HIGH RISK Performed By: #### L IPID, CMP, TSH ####[facility] [place] [address] [place] [id number]. Lupis Santana Cholesterol [Mass/Vol] 225 mg/dL Critically high <=200 [facility] [place] Comment on above: Performed By: #### L IPID, CMP, TSH ####[facility] [place] [address] [place] [id number]. Lupis Santana Cholesterol in HDL [Mass/Vol] 73 mg/dL Critically high 40-60 [facility] [place] Comment on above: Performed By: #### L IPID, CMP, TSH ####[facility] [place] [id number] [place] [id number]. Lupis Santana Cholesterol in LDL [Mass/Vol] 141.6 mg/dL Normal [facility] [place] Comment on above: Performed By: #### L IPID, CMP, TSH ####[facility] [place] [id number] [place] [id number]. Lupis Santana Cholesterol.total/ Cholesterol in HDL [Mass ratio] 3.1 {ratio} Normal [facility] [place] Comment on above: Performed By: #### L IPID, CMP, TSH ####[facility] [place] [id number] [place] [id number]. Lupis Santana HDL NORMAL > or = 60 mg/dl - LO W CARDIOVASCULAR RISK <40 mg/dl - HIGH CARDIOVASCULAR RISK Normal [facility] [place] Comment on above: Performed By: #### L IPID, CMP, TSH ####[facility] [place] [id number] [place] [id number]. Lupis Santana LDL CALC NORMAL SEE BELOW Normal The [facility] Comment on above: Result Comment: <100 mg/dl OPTIMAL 100 - 129 mg/dl NEAR OR ABOVE OPTIMAL 130 - 159 mg/dl BORDERLINE HIGH 160 - 189 mg/dl HIGH >190 mg/dl VERY HIGH Performed By: #### L IPID, CMP, TSH ####[facility] [place] [id number] [place] [id number]. Lupis Santana Triglyceride [Mass/Vol] 52 mg/dL Normal <=150 [facility] [place] Comment on above: Performed By: #### L IPID, CMP, TSH ####[facility] [place] [id number] [place], [place] [address]Dr. Lupis Santana VLDL CALC 10.4 mg/dL Normal [facility] Comment on above: Performed By: #### L IPID, CMP, TSH ####[facility] [place] [id number] [place], [place] [address]Dr. Lupis Santana PROF 14(COMP METB)on 022 Albumin [Mass/Vol] 3.6 g/dL Normal 3.4-5.0 [facility] Comment on above: Performed By: #### L IPID, CMP, TSH #### [facility] [place] [facility] [address] [address] [address] Lupis Santana Albumin/Globulin [Mass ratio] 1.1 {ratio} Normal [facility] Comment on above: Performed By: #### L IPID, CMP, TSH #### [facility] [place] [facility] [address] [address] [address] Lupis Santana ALP [Catalytic activity/Vol] 72 U/L Normal 46-116 [facility] Comment on above: Performed By: #### L IPID, CMP, TSH #### [facility] [place] [facility] [address] [address] [address] Lupis Santana ALT [Catalytic activity/Vol] 17 U/L Normal 14-59 [facility] Comment on above: Performed By: #### L IPID, CMP, TSH #### [facility] [place] [facility] [address] [address] [address] Lupis Santana Anion gap [Moles/Vol] 13.0 mmol/L Normal [facility] Comment on above: Performed By: #### L IPID, CMP, TSH #### [facility] [place] [facility] [address] [address] [address] Lupis Santana AST [Catalytic activity/Vol] 20 U/L Normal 15-37 [facility] Comment on above: Performed By: #### L IPID, CMP, TSH #### [facility] [place] [facility] [address] [address] [address] Lupis Santana Bilirubin [Mass/Vol] 0.2 mg/dL Normal 0.2-1.0 [facility] Comment on above: Performed By: #### L IPID, CMP, TSH #### [facility] [place] [facility] [address] [address] [address] Lupis Santana Calcium [Mass/Vol] 8.9 mg/dL Normal 8.5-10.1 [facility] Comment on above: Performed By: #### L IPID, CMP, TSH #### [facility] [place] [facility] [address] [address] [address] Lupis Santana Chloride [Moles/Vol] 103 mmol/L Normal 98-107 [facility] Comment on above: Performed By: #### L IPID, CMP, TSH #### [facility] [place] [facility] [address] [address] [address] Lupis Santana CO2 [Moles/Vol] 26.2 mmol/L Normal 21.0-32.0 [facility] Comment on above: Performed By: #### L IPID, CMP, TSH #### [facility] [place] [facility] [address] [address] [address] Lupis Santana Creatinine [Mass/Vol] 0.71 mg/dL Normal 0.55-1.02 [facility] Comment on above: Performed By: #### L IPID, CMP, TSH #### [facility] [place] [facility] [address] [address] [address] Lupis Santana EGFR-AF [place] >60 Normal >=60 [facility] Comment on above: Performed By: #### L IPID, CMP, TSH #### [facility] [place] [facility] [address] [place] [address] Dr. Lupis Santana EGFR-NON AF [place] >60 Normal >=60 [facility] Comment on above: Performed By: #### L IPID, CMP, TSH #### [facility] [place] [facility] [address] [address] [address] Lupis Santana Globulin (S) [Mass/Vol] 3.4 g/dL Normal [facility] Comment on above: Performed By: #### L IPID, CMP, TSH #### [facility] [place] [facility] [address] [address] [address] Lupis Santana Glucose [Mass/Vol] 102 mg/dL Normal 74-106 [facility] Comment on above: Performed By: #### L IPID, CMP, TSH #### [facility] [place] [facility] [address] [address] [address] Lupis Santana Potassium [Moles/Vol] 4.2 mmol/L Normal 3.5-5.1 [facility] [place] Comment on above: Performed By: #### L IPID, CMP, TSH #### [facility] [place] [facility] [address] [address] [address] Lupis Santana Protein [Mass/Vol] 7.0 g/dL Normal 6.4-8.2 [facility] Comment on above: Performed By: #### L IPID, CMP, TSH #### [facility] [place] [facility] [address] [address] [address] Lupis Santana Sodium [Moles/Vol] 138 mmol/L Normal 136-145 [facility] Comment on above: Performed By: #### L IPID, CMP, TSH #### [facility] [place] [facility] [address] [place] [address] Dr. Lupis Santana Urea nitrogen [Mass/Vol] 15.0 mg/dL Normal 7.0-18.0 [facility] Comment on above: Performed By: #### L IPID, CMP, TSH #### [facility] [place] [facility] [address] [place] [address] Dr. Lupis Santana Urea nitrogen/Creatinin e [Mass ratio] 21.1 mg/mg Normal [facility] [place] Comment on above: Performed By: #### L IPID, CMP, TSH #### [facility] [place] [facility] [address] [address] [address] Lupis Santana TSHon 01-13-2022 TSH 1.162 uIU/mL Normal 0.358-3.740 [facility] Comment on above: Performed By: #### L IPID, CMP, TSH ####[facility] [place] [id number] [place] [address]Dr. Lupis Santana TSH RANGE SEE BELOW Normal [facility] [place] Comment on above: Result Comment: <0.3 4 UIU/ml HYPERTHYROID 0.34-5.60 UIU/ml EUTHYROID >5.60 UIU/ml HYPOTHYROID Performed By: #### L IPID, CMP, TSH ####[facility] [place] [id number] [place], [place] [address]OvArturo Santana Encounters Encounter Date Encounter Type Care Provider Facility Start: 12-11-2022 End: 12-12-2022 ambulatory HOMAR HICKEY Facility:[facility] Start: 04-15-2022 End: 04-15-2022 ambulatory FRANKLIN DALY Facility:[facility] Start: 01-13-2022 End: 01-14-2022 ambulatory FRANKLIN DALY Facility: Payers Date Payer Category Payer Unknown [id number] [id number] [id number] 1970 Unknown [id number] [id number] 1970 Unknown [id number] [id number] [id number] 1960 Medicaid [id number] 1960 Medicare [id number] Summary Purpose Family History No Family History Records Found Advance Directives No Advanced Directives Records Found Additional Source Comments INFORMATION SOURCE (unrecogn ized section and content) DATE CREATED AUTHOR 12/15/2022 The [facility] FOR RECORDS PERTAINING TO PATIENTS WHO ARE [...] BE BASED ON THE PRIMARY CLINICAL RECORDS. [employer] provides no warranty or guarantee of the accuracy or completeness of information in this document.
[2024-04-27] MEDS: 0.9 % SODIUM CHLORIDE 1,000 ML 1000 ML IV (07:59)
[2024-04-27 08:05] LABS: Basophils Absolute Auto 0.1 10^3/uL (0.0-0.1); Eosinophils Absolute Auto 0.3 10^3/uL (0.0-0.7); Eosinophils Percent Auto 4.5 % (0.9-7.0); Hematocrit 40.6 % (36.0-48.0); Hemoglobin 12.9 g/dL (12.0-16.0); Immature Granulocytes Abs Auto 0.03 10^3/uL (0.00-0.03); Immature Granulocytes Pct Auto 0.4 % (0.0-0.5); Lymphocytes Absolute Auto 1.5 10^3/uL (1.2-3.8); Lymphocytes Percent Auto 21.9 % (20.5-60.0); Mean Corpuscular HGB Conc 31.8 g/dL (29.9-35.2); Mean Corpuscular Hemoglobin 28.2 pg (26.7-34.0); Mean Corpuscular Volume 88.8 fL (81.0-99.0); Mean Platelet Volume 9.9 fL (9.5-13.5); Monocytes Absolute Auto 0.5 10^3/uL (0.3-0.8); Monocytes Percent Auto 6.8 % (1.7-12.0); Neutrophils Absolute Auto 4.5 10^3/uL (1.4-6.5); Neutrophils Percent Auto 65.4 % (43.0-75.0); Platelet Count 264 10^3/uL (150-450); Red Blood Count 4.57 10^6/uL (4.20-5.40); Red Cell Distribution Width 14.5 % (11.0-15.0); White Blood Count 6.9 10^3/uL (4.0-11.0)
--- NOTE | 2024-04-27 08:10 | XR_ITS ---
The [place] [id number] Patient Name: JIMENA MALDONADO MRN: [id number] date: 1970 Sex: F Assigned Patient Location: ED.MAIN Current Patient Location: ER Accession/Order Number: [id number] Exam Date: 04/27/2024 08:05 Report Date: 04/27/2024 08:29 At the request of: JANEL MCCARTNEY Procedure: XR chest 1V EXAMINATION: XR chest 1V HISTORY: ams COMPARISON: XR chest 04/15/2022, 03/14/2018 FINDINGS: LUNGS: Mild haziness within lateral left lung base. VASCULATURE: No increased pulmonary vasculature. PLEURA: No pneumothorax, effusion, or pleural thickening. CARDIAC: No cardiomegaly or cardiac silhouette abnormality. MEDIASTINUM: No visible mass or adenopathy. BONES: No fracture or visible bone lesion. OTHER: Port-A-Cath within upper left chest wall with tube disconnected from the hub. XR/XR chest 1V IMPRESSION: 1. Mild haziness within lateral left lung base; prominent pericardial fat pad versus mild infiltrates or atelectasis. Appearance is stable compared to 04/15/2022 and is suspected to represent a prominent pericardial fat pad. 2. Left chest wall Port-A-Cath with tubing disconnected and from the hub. Electronically authenticated by: LUIS CORREA Date: 04/27/2024 08:29
--- NOTE | 2024-04-27 08:20 | ED_ITS ---
HPI - Altered Mental Status General Chief Complaint: Altered Mental Status Stated Complaint: ALTERED MENTAL STATUS Time Seen by Provider: 04/27/24 07:27 Source: patient Mode of arrival: ambulance Limitations: altered mental status History of Present Illness HPI narrative: Patient presents to ED after an episode of questionable unresponsiveness at home. Family states she was more difficult to wake up than normal and they had trouble waking her up so they called EMS. When EMS arrived she was awake she is alert and oriented x 3 but lethargic. Family states she gets this way every time that she takes Bactrim. Patient does have a history of MS and has a urostomy bag. Patient denies fevers. She is slightly hypotensive and mildly tachycardic here on arrival. She is answering questions appropriately but is lethargic and slow to answer her questions. Unsure of neurological baseline. She does have a history of seizures but patient denies any seizures prior to arrival. Patient denies chest pain or shortness of breath. She is being treated on Bactrim for a rash underneath both breasts which appears to be yeastlike in nature. Patient denies any other symptoms at this time and is resting comfortably in the bed in no acute distress. Related Data Home Medications ?Medication ?Instructions ?Recorded ?Confirmed atorvastatin 10 mg tablet 10 mg PO DAILY 12/27/23 04/27/24 carisoprodol 350 mg tablet 350 mg PO TID PRN muscle pain 12/27/23 04/27/24 pantoprazole 40 mg tablet,delayed 40 mg PO DAILY 12/27/23 04/27/24 release venlafaxine 150 mg 150 mg PO DAILY 12/27/23 04/27/24 capsule,extended release 24 hr albuterol sulfate 90 mcg/actuation 2 puff inhalation Q4H PRN 04/27/24 04/27/24 aerosol inhaler shortness of breath or wheezing fluticasone furoate 200 1 inh inhalation DAILY 04/27/24 04/27/24 mcg-vilanterol 25 mcg/dose inhalation powder Allergies Allergy/AdvReac Type Severity Reaction Status Date / Time Penicillins Allergy Unknown Unknown Verified 04/27/24 07:28 Review of Systems ROS Status of ROS 10 or more systems reviewed and unremark able except as noted in history and below [facility] Medical History (Updated 04/27/24 @ 10:59 by Tanisha Motley DO) Presence of urostomy ?Z93.6 - Other artificial openings of urinary tract status (ICD-10) Diabetes ?E11.9 - Type 2 diabetes mellitus without complications (ICD-10) Bladder cancer ?C67.9 - Malignant neoplasm of bladder, unspecified (ICD-10) Multiple sclerosis ?G35 - Multiple sclerosis (ICD-10) Surgical History (Updated 04/27/24 @ 10:33 by Sirena Cobb) History of bladder surgery ?Z98.890 - Other specified postprocedural states (ICD-10) Family History (Updated 04/27/24 @ 10:35 by Sirena Cobb) Father Family history of CHF (congestive heart failure) Family history of hypertension Family history of myocardial infarction Grandmother Family history of cancer Aunt Family history of cancer Social History (Updated 04/27/24 @ 10:36 by Sirena Cobb) Within the past year, how often did you have a drink containing alcohol: never Within the past year, how often did you have six or more drinks on one occasion: never Score interpretation: A score less than 3 is consistent with normal alcohol consumption. Smoking status: Current every day smoker Do you use any of these nicotine containing products: vaping products Non-prescribed substance use: denies use Previous occupational history: disabled Highest level of school completed/degree received: high school graduate Are you now , , , , never or living with a partner: In a typical week, how many times do you talk on the telephone with family, friends, or neighbors: 3 or more times per week How often do you get together with friends or relatives: 3 or more times per week How often do you attend religion or episcopalian services: never Do you belong to any clubs or organizations such as religion groups unions, fraternal or athletic groups, or school groups: no Total score: 1 Score interpretation: A score of less than or equal to 1 indicates the most socially isolated. Little interest or pleasure in doing things: not at all Feeling down, depressed, or hopeless: not at all Feel stressed/tense/nervous/anxious/difficulty sleeping: not at all Exam Narrative Exam Narrative: Time Seen: [] Vital Signs: [Per nurse's notes.] General: [Alert]But lethargic Skin: [Warm, dry, Scaly plaque-like rash underneath bilateral breasts, erythematous Head: [Normocephalic, atraumatic.] Neck: [Supple, trachea midline.] Eye: [Pupils are equal, round and reactive to light, extraocular movements are intact, normal conjunctiva.] Ears, nose, mouth and throat: oral mucosa moist. Cardiovascular: [Regular rate and rhythm, no murmur.] Respiratory: [Lungs are clear to auscultation, respirations are non-labored, breath sounds are equal.] Chest wall: [No tenderness, no deformity.] Gastrointestinal: [Soft, nontender, non distended, normal bowel sounds. Urostomy bag in place multiple surgical scars on abdomen. Urostomy bag has yellow urine MSK:4 out of 5 muscle strength x 4 extremities no calf pain or edema Lymphatics: [No lymphadenopathy.] Psychiatric: [Cooperative, appropriate mood & affect.] Neurological: [Alert and oriented to person, place, time, and situation, no focal neurological deficit observed.Patient does seem to be lethargic Constitutional Vital Signs, click to edit/add: Last Vital Signs Temp 97.6 F 04/27/24 10:40 Pulse 86 04/27/24 10:40 Resp 18 04/27/24 10:40 BP 96/68 04/27/24 10:40 Pulse Ox 93 L 04/27/24 10:40 O2 Del Method Nasal Cannula 04/27/24 10:40 O2 Flow Rate 2 04/27/24 10:40 Course Vital Signs Vital signs: Vital Signs Temperature 97.9 F 04/27/24 07:28 Pulse Rate 91 H 04/27/24 07:28 Respiratory Rate 18 04/27/24 07:28 Blood Pressure 96/63 04/27/24 07:28 Pulse Oximetry 97 04/27/24 07:28 Oxygen Delivery Method Room Air 04/27/24 07:28 Temperature 97.6 F 04/27/24 10:40 Pulse Rate 86 04/27/24 10:40 Respiratory Rate 18 04/27/24 10:40 Blood Pressure 96/68 04/27/24 10:40 Pulse Oximetry 93 L 04/27/24 10:40 Oxygen Delivery Method Nasal Cannula 04/27/24 10:40 Oxygen Delivery Flow Rate 2 04/27/24 10:40 MDM - Altered Mental Status MDM Narrative Medical decision making narrative: Patient's labs showed a urinary tract infection. Her blood pressure has been soft down here in the ER about 90s over 70s. She is mildly tachycardic. Patient is also still lethargic. She was given IV Rocephin here in ED. She will be admitted for UTI, altered mental status, lethargy. I spoke to Dr. Mckeon who is comfortable with admission and patient is comfortable with care plan for admit for IV antibiotics and further care. Lactate is normal, sepsis not indicated at this time. Blood cultures and urine cultures pending Differential Diagnosis Differential diagnosis: Likely altered mental status, sepsis and OTHER (Lethargy, urinary infection) Medical Records Attestation: I reviewed the patient's medical records. Lab Data Attestation: I reviewed the patient's lab results. Labs: Lab Results 04/27/24 04/27/24 04/27/24 Range/Units 07:45 07:54 07:55 WBC 6.9 (4.0-11.0) 10^3/uL RBC 4.57 (4.20-5.40) 10^6/uL Hgb 12.9 (12.0-16.0) g/dL Hct 40.6 (36.0-48.0) % MCV 88.8 (81.0-99.0) fL MCH 28.2 (26.7-34.0) pg MCHC 31.8 (29.9-35.2) g/dL RDW 14.5 (11.0-15.0) % Plt Count 264 (150-450) 10^3/uL MPV 9.9 (9.5-13.5) fL Neut % (Auto) 65.4 (43.0-75.0) % Lymph % (Auto) 21.9 (20.5-60.0) % Nicholas % (Auto) 6.8 (1.7-12.0) % Eos % (Auto) 4.5 (0.9-7.0) % Baso % (Auto) 1.0 (0.2-2.0) % Neut # (Auto) 4.5 (1.4-6.5) 10^3/uL Lymph # (Auto) 1.5 (1.2-3.8) 10^3/uL Nicholas # (Auto) 0.5 (0.3-0.8) 10^3/uL Eos # (Auto) 0.3 (0.0-0.7) 10^3/uL Baso # (Auto) 0.1 (0.0-0.1) 10^3/uL Abs Immat Gran (auto) 0.03 (0.00-0.03) 10^3/uL Imm/Tot Granulo (auto) 0.4 (0.0-0.5) % Sodium 136 (136-145) mmol/L Potassium 4.6 (3.5-5.1) mmol/L Chloride 101 (98-107) mmol/L Carbon Dioxide 27.9 (21.0-32.0) mmol/L Anion Gap 11.7 BUN 6.0 L (7.0-18.0) mg/dL Creatinine 0.62 (0.55-1.02) mg/dL Est GFR ( Amer) >60 (>=60) Est GFR (Non-Af Amer) >60 (>=60) BUN/Creatinine Ratio 9.7 Glucose 92 (74-106) mg/dL Lactate 1.7 (0.4-2.0) mmol/L Calcium 9.0 (8.5-10.1) mg/dL Total Bilirubin 0.4 (0.2-1.0) mg/dL AST 25 (15-37) U/L ALT 15 (14-59) U/L Alkaline Phosphatase 81 (46-116) U/L Troponin I High Sens <4.0 L (4.0-51.3) pg/mL Total Protein 6.8 (6.4-8.2) g/dL Albumin 3.4 (3.4-5.0) g/dL Globulin 3.4 g/dL Albumin/Globulin Ratio 1.0 Urine Color (YELLOW) Urine Clarity (CLEAR) Urine pH (5.0-9.0) Ur Specific [place] (1.005-1.025) Urine Protein (NEG/TRACE) mg/dL Urine Glucose (UA) (NEGATIVE) mg/dL Urine Ketones (NEGATIVE) mg/dL Urine Occult Blood (NEGATIVE) Urine Nitrite (NEGATIVE) Urine Bilirubin (NEGATIVE) Urine Urobilinogen (0.2-1.0) EU/dL Ur Leukocyte Esterase (NEGATIVE) Urine RBC (0-2) #/HPF Urine WBC (NONE SEEN) #/HPF Ur Squamous Epith Cells (NONE/RARE) #/LPF Urine Bacteria (NONE SEEN) #/HPF Urine Mucus (NONE SEEN) Ur Culture Indicated? Influenza Type A Ag Negative Influenza Type B Ag Negative SARS-CoV-2 Ag (CV2AG) Negative (NEGATIVE) 04/27/24 Range/Units 08:01 WBC (4.0-11.0) 10^3/uL RBC (4.20-5.40) 10^6/uL Hgb (12.0-16.0) g/dL Hct (36.0-48.0) % MCV (81.0-99.0) fL MCH (26.7-34.0) pg MCHC (29.9-35.2) g/dL RDW (11.0-15.0) % Plt Count (150-450) 10^3/uL MPV (9.5-13.5) fL Neut % (Auto) (43.0-75.0) % Lymph % (Auto) (20.5-60.0) % Nicholas % (Auto) (1.7-12.0) % Eos % (Auto) (0.9-7.0) % Baso % (Auto) (0.2-2.0) % Neut # (Auto) (1.4-6.5) 10^3/uL Lymph # (Auto) (1.2-3.8) 10^3/uL Nicholas # (Auto) (0.3-0.8) 10^3/uL Eos # (Auto) (0.0-0.7) 10^3/uL Baso # (Auto) (0.0-0.1) 10^3/uL Abs Immat Gran (auto) (0.00-0.03) 10^3/uL Imm/Tot Granulo (auto) (0.0-0.5) % Sodium (136-145) mmol/L Potassium (3.5-5.1) mmol/L Chloride (98-107) mmol/L Carbon Dioxide (21.0-32.0) mmol/L Anion Gap BUN (7.0-18.0) mg/dL Creatinine (0.55-1.02) mg/dL Est GFR ( Amer) (>=60) Est GFR (Non-Af Amer) (>=60) BUN/Creatinine Ratio Glucose (74-106) mg/dL Lactate (0.4-2.0) mmol/L Calcium (8.5-10.1) mg/dL Total Bilirubin (0.2-1.0) mg/dL AST (15-37) U/L ALT (14-59) U/L Alkaline Phosphatase (46-116) U/L Troponin I High Sens (4.0-51.3) pg/mL Total Protein (6.4-8.2) g/dL Albumin (3.4-5.0) g/dL Globulin g/dL Albumin/Globulin Ratio Urine Color Yellow (YELLOW) Urine Clarity Slightly cloudy A (CLEAR) Urine pH 6.0 (5.0-9.0) Ur Specific [place] 1.020 (1.005-1.025) Urine Protein Negative (NEG/TRACE) mg/dL Urine Glucose (UA) Negative (NEGATIVE) mg/dL Urine Ketones Negative (NEGATIVE) mg/dL Urine Occult Blood Negative (NEGATIVE) Urine Nitrite Positive A (NEGATIVE) Urine Bilirubin Negative (NEGATIVE) Urine Urobilinogen 0.2 (0.2-1.0) EU/dL Ur Leukocyte Esterase Trace A (NEGATIVE) Urine RBC None seen (0-2) #/HPF Urine WBC 5-10 A (NONE SEEN) #/HPF Ur Squamous Epith Cells Few A (NONE/RARE) #/LPF Urine Bacteria Large A (NONE SEEN) #/HPF Urine Mucus None seen (NONE SEEN) Ur Culture Indicated? Yes Influenza Type A Ag Influenza Type B Ag SARS-CoV-2 Ag (CV2AG) (NEGATIVE) ECG Data Attestation: I personally reviewed and interpreted this ECG as follows: Interpretation: EKG INTERPRETATION Time: []753 Rate: []87 Rhythm: _ []Normal sinus rhythm ST segments: _ []No acute ST elevation or depression T waves: _ [] Ectopy: _ [] P wave/CT interval: _ [] QRS interval: _ [] QT interval: _ [] Comparison: _ [] Comparison EKG date: [] Performed by: [self] Discharge Plan Discharge Chief Complaint: Altered Mental Status Clinical Impression: UTI (urinary tract infection), AMS (altered mental status) Patient Disposition: Admitted As Inpatient Time of Disposition Decision: 10:59 Condition: Fair Discharge Date/Time: 04/27/24 10:15
[2024-04-27 08:23] LABS: Internal Control Within Normal Limits; SARS-CoV-2 Ag NEGATIVE (NEGATIVE)
[2024-04-27 08:25] LABS: Influenza Virus A Antigen Negative; Influenza Virus B Antigen Negative; Internal Control Within Normal Limits
[2024-04-27 08:32] LABS: Anion Gap 11.7
[2024-04-27 08:33] LABS: Alanine Aminotransferase 15 U/L (14-59); Albumin Level 3.4 g/dL (3.4-5.0); Alkaline Phosphatase 81 U/L (46-116); Aspartate Amino Transferase 25 U/L (15-37); BUN Creatinine Ratio 9.7; Bilirubin Total 0.4 mg/dL (0.2-1.0); Carbon Dioxide 27.9 mmol/L (21.0-32.0); Chloride 101 mmol/L (98-107); Estimated GFR (African America >60 (>=60); Estimated GFR (Non-African Ame >60 (>=60); Globulin 3.4 g/dL; Glucose 92 mg/dL (74-106); Potassium 4.6 mmol/L (3.5-5.1); Sodium 136 mmol/L (136-145); Total Protein 6.8 g/dL (6.4-8.2); Troponin I High Sensitivity <4.0 pg/mL (4.0-51.3)
[2024-04-27 08:37] LABS: Lactate/Lactic Acid 1.7 mmol/L (0.4-2.0)
[2024-04-27 08:38] LABS: Bilirubin Urine NEGATIVE (NEGATIVE); Blood Urine NEGATIVE (NEGATIVE); Color Urine YELLOW (YELLOW); Glucose Urine UA NEGATIVE (NEGATIVE); Ketones Urine NEGATIVE (NEGATIVE); Leukocyte Esterase Urine TRACE (NEGATIVE); Nitrite Urine POSITIVE (NEGATIVE); Protein Urine NEGATIVE (NEG/TRACE); Urobilinogen Urine 0.2 EU/dL (0.2-1.0)
[2024-04-27 08:40] LABS: Clarity Urine SLIGHTLY CLOUDY (CLEAR)
[2024-04-27 08:41] LABS: Urine Microscopic Indicated YES
[2024-04-27 08:44] LABS: RBC Urine NONE SEEN #/HPF (0-2)
[2024-04-27 08:45] LABS: Bacteria Urine LARGE #/HPF (NONE SEEN); Mucus Urine NONE SEEN (NONE SEEN); Squamous Epithelial Cell Urine FEW #/LPF (NONE/RARE); Urine Culture Indicated YES
[2024-04-27] MEDS: CEFTRIAXONE 1,000 MG in 0.9 % SODIUM CHLORIDE 50 ML 100 MG IV (09:45)
--- OUTSIDE RECORDS SUMMARY | 2024-04-27 10:40 | XMS_ITS | CCD ---
Author Organization [facility] Inform ion Partnership [facility] Care Team Providers Care Bus Boy Name Role Phone FRANKLIN DALY Primary Care [...] source) Penicillins Drug allergy (disorder) 05-04-2013 The [facility] Repository Problems Active Problems Problem Classification Problem [...] by: LUIS CORREA Date: 2022-12-12 07:24 Normal [facility] MRI LSPINE WO CONon 12-13-19 23 [...] AMBER LILLY Date: 2022-12-12 07:21 Normal The [facility] CULTURE URINEon 04-18-2022 CULTURE URINE Isolate 1 [...] Trimethoprim/Sulfamet hoxazole <=20 S F Normal The [facility] Comment on above: Performed By: #### U RCX #### [facility] Laboratory [address] [place], [place] [address] Dr. Lupis Santana CBC AUTO DIFFon 04-15-2022 BASO # 0.0 103/ul Normal 0.0-0.1 The [facility] Comment on above: Performed By: #### C BC ####[facility] [address] [place], [place] [address]KdDr. Lupis Santana Basophils/100 WBC (Bld) 0.6 % Normal 0.2-2.0 The [facility] Comment on above: Performed By: #### C BC ####[facility] [address] [place] [id number] Santana EO # 0.0 103/ul Normal 0.0-0.7 The [facility] Comment on above: Performed By: #### C BC ####[facility] [address] [place] [address]Dr. Lupis Santana Eosinophils/100 WBC (Bld) 0.3 % Critically low 0.9-7.0 The [facility] Comment on above: Performed By: #### C BC ####[facility] [address] [place] [address]Dr. Lupis Santana Erythrocyte distribution width (RBC) [Ratio] 13.9 % Normal 11.0-15.0 The [facility] Comment on above: Performed By: #### C BC ####[facility] [address] [place], [place] [address]Dr. Lupis Santana Hematocrit (Bld) [Volume fraction] 37.7 % Normal 36.0-48.0 The [facility] Comment on above: Performed By: #### C BC ####[facility] N[address]rt[address] [place], [place] [address]Dr. Lupis Santana Hemoglobin (Bld) [Mass/Vol] 11.9 g/dL Critically low 12.0-16.0 The [facility] Comment on above: Performed By: #### C BC ####[facility] [address] [place], [place] [address]Dr. Lupis Santana IG # 0.01 10e3/ul Normal 0.00-0.03 The [facility] Comment on above: Performed By: #### C BC ####[facility] T[address] [place], [place] [address]Dr. Lupis Santana IG % 0.3 % Normal 0.0-0.5 The [facility] Comment on above: Performed By: #### C BC ####[facility] Sqx[address] [place], [place] [address]Dr. Lupis Santana LYMPH # 1.3 103/ul Normal 1.2-3.8 The [facility] Comment on above: Performed By: #### C BC ####[facility] Boxit[address]rg[address] [place], [place] [address]Dr. Lupis Santana Lymphocytes/100 WBC (Bld) 36.3 % Normal 20.5-60.0 The [facility] Comment on above: Performed By: #### C BC ####[facility] [address] [place] [address]Dr. Lupis Santana MANUAL DIFF REQ NO Normal [facility] Comment on above: Performed By: #### C BC ####[facility] [address]emp[address] [place] [phone]. Lupis Santana MCH (RBC) [Entitic mass] 27.4 pg Normal 26.7-34.0 [facility] Comment on above: Performed By: #### C BC ####[facility] [address] [place] [address]Dr. Lupis Satnana MCHC (RBC) [Mass/Vol] 31.6 g/dL Normal 29.9-35.2 The [facility] Comment on above: Performed By: #### C BC ####[facility] Ealct[address] [place], [place] [address]Dr. Lupis Santana MCV (RBC) [Entitic vol] 86.7 fL Normal 81.0-99.0 [facility] Comment on above: Performed By: #### C BC ####[facility] Hsgb[address] [place], [place] [address]Dr. Lupis Santana MONO # 0.6 103/ul Normal 0.3-0.8 [facility] Comment on above: Performed By: #### C BC ####[facility] R[address] [place] [address]Dr. Lupis Santana Monocytes/100 WBC (Bld) 15.4 % Critically high 1.7-12.0 [facility] Comment on above: Performed By: #### C BC ####[facility] Vireifalsr[address] [place], [place] [address]Dr. Lupis Santana NEUT # 1.7 103/ul Normal 1.4-6.5 The [facility] Comment on above: Performed By: #### C BC ####[facility] Latlcm[address]ud[address] [place], [place] [address]Dr. Lupis Santana Neutrophils/100 WBC (Bld) 47.1 % Normal 43.0-75.0 The [facility] Comment on above: Performed By: #### C BC ####[facility] Xm[address]xerhy[address] [place] [phone]. Lupis Santana Platelet mean volume (Bld) [Entitic vol] 9.1 fL Critically low 9.5-13.5 [facility] Comment on above: Performed By: #### C BC ####[facility] [address] [place] [address]Dr. Lupis Santana PLT 189 103/ul Normal 150-450 The [facility] Comment on above: Performed By: #### C BC ####[facility] Y[address]wr[address] [place] [address]Dr. Lupis Santana RBC 4.35 106/ul Normal 4.20-5.40 The [facility] Comment on above: Performed By: #### C BC ####[facility] Fcggparhfz5436 [place] [address]Dr. Lupis Santana WBC 3.6 103/ul Critically low 4.0-11.0 [facility] Comment on above: Performed By: #### C BC ####[facility] [address] [place] [phone]. Lupis Santana Covid-19 PCR (CVDTB)on 04-03 SARS-CoV-2 (COVID-19) RNA BARBARA+probe Ql (Unsp spec) Detected Critically abnormal NOT DETECTED The [facility] Comment on above: Result Comment: This test is not yet approved or cleared by the [place] FDA. When there are no FDA-approved or cleared tests available, and other criteria are met, FDA can make tests available under an emergency access mechanism called an Emergency Use Authorization (EUA). The EUA for this test is supported by the [place] of Health and Human Service's declaration that [...] used). Performed By: #### C VDTBH #### [facility] Laboratory [address] [place] [address] [address] Lupis Santana ER URINE PROFILEon 2 Bilirubin Ql (U) Negative Normal NEGATIVE The [facility] Comment on above: Performed By: #### Danilo HAND UMICRO #### [facility] Laboratory [address] [place] [address] Dr. Lupis Santana Clarity (U) SL CLOUDY Abnormal CLEAR [facility] Comment on above: Performed By: #### Danilo HAND UMICRO #### [facility] [address] [place] [address] Dr. Lupis Santana Color (U) YELLOW Normal YELLOW [facility] Comment on above: Performed By: #### OMID VALIENTERO #### [facility] [address] [place] [address] Dr. Lupis SANCHEZ A micrscopic examination will be performed if indicated. Normal The [facility] Comment on above: Performed By: #### PINKY VALIENTEICRO #### [facility] [address] [place] [address] Dr. Lupis Santana Glucose Ql (U) Negative Normal NEGATIVE [facility] Comment on above: Performed By: #### OMID VALIENTERO #### [facility] [address] [place] [address] Dr. Lupis Santana Hemoglobin Ql (U) Negative Normal NEGATIVE The [facility] Comment on above: Performed By: #### PINKY VALIENTEICRO #### [facility] Laboratory [address] [place] [address] [address] Lupis Santana Ketones Ql (U) Negative Normal NEGATIVE The [facility] Comment on above: Performed By: #### OMID VALIENTERO #### [facility] [address] [place] [address] Dr. Lupis Santana LEUKOCYTES Negative Normal NEGATIVE [facility] Comment on above: Performed By: #### PINKY VALIENTEICRO #### [facility] [address] [place] [address] Dr. Lupis Santana Nitrite Ql (U) Positive Abnormal NEGATIVE The [facility] Comment on above: Performed By: #### Danilo HAND, UMICRO #### [facility] [address] [place] [address] Dr. Lupis Santana pH (U) 6.0 [pH] Normal 5-9 [facility] Comment on above: Performed By: #### Danilo HAND, UMICRO #### [facility] [address] [place] [address] Dr. Lupis Santana SPEC GRAVITY 1.020 Normal 1.005-<=1.025 [facility] Comment on above: Performed By: #### Danilo HAND, UMICRO #### [facility] [address] [place] [address] Dr. Lupis Santana UA PROTEIN Negative Normal NEGATIVE/ TRACE [facility] Comment on above: Performed By: #### Danilo HAND, UMICRO #### [facility] [address] [place] [address] Dr. Lupis Santana UR MICRO IND INDICATED Normal [facility] Comment on above: Performed By: #### Danilo HAND, UMICRO #### [facility] [address] [place] [address] Dr. Lupis Santana Urobilinogen Qn (U) 1.0 {Batsheva'U}/dL Normal 0.2 - 1.0 [facility] Comment on above: Performed By: #### Danilo HAND, UMICRO #### [facility] [address] [place] [address] Dr. Lupis Santana LACTATE/LACTIC ACIDon 2021 Lactate [Moles/Vol] 0.5 mmol/L Normal 0.4-1.9 [facility] Comment on above: Performed By: #### L ACT #### [facility] [address] [place] [address] Dr. Lupis Santana PROF 14(COMP METB)on 022 Albumin [Mass/Vol] 3.5 g/dL Normal 3.4-5.0 [facility] Comment on above: Performed By: #### C MP #### [facility] [address] [place] [address] Dr. Lupis Santana Albumin/Globulin [Mass ratio] 1.0 {ratio} Normal [facility] Comment on above: Performed By: #### C MP #### [facility] [address] [place] [address] Dr. Lupis Santana ALP [Catalytic activity/Vol] 76 U/L Normal 46-116 [facility] Comment on above: Performed By: #### C MP #### [facility] [address] [place] [address] [address] Lupis Santana ALT [Catalytic activity/Vol] 17 U/L Normal 14-59 [facility] Comment on above: Performed By: #### C MP #### [facility] [address] [place] [address] Dr. Lupis Santana Anion gap [Moles/Vol] 9.9 mmol/L Normal [facility] Comment on above: Performed By: #### C MP #### [facility] [address] [place] [address] Dr. Lupis Santana AST [Catalytic activity/Vol] 18 U/L Normal 15-37 [facility] Comment on above: Performed By: #### C MP #### [facility] [address] [place] [address] Dr. Lupis Santana Bilirubin [Mass/Vol] 0.3 mg/dL Normal 0.2-1.0 [facility] Comment on above: Performed By: #### C MP #### [facility] [address] [place] [address] Dr. Lupis Santana Calcium [Mass/Vol] 8.7 mg/dL Normal 8.5-10.1 [facility] Comment on above: Performed By: #### C MP #### [facility] [address] [place] [address] Dr. Lupis Santana Chloride [Moles/Vol] 104 mmol/L Normal 98-107 [facility] Comment on above: Performed By: #### C MP #### [facility] [address] [place] [address] Dr. Lupis Santana CO2 [Moles/Vol] 25.8 mmol/L Normal 21.0-32.0 [facility] Comment on above: Performed By: #### C MP #### [facility] [address] [place] [address] [address] Lupis Santana Creatinine [Mass/Vol] 0.81 mg/dL Normal 0.55-1.02 The [facility] Comment on above: Performed By: #### C MP #### [facility] [address] [place] [address] [address] Luips Santana EGFR-AF IRISH >60 Normal >=60 [facility] Comment on above: Performed By: #### C MP #### [facility] [address] [place] [address] [address] Lupis Santana EGFR-NON AF IRISH >60 Normal >=60 [facility] Comment on above: Performed By: #### C MP #### [facility] [address] [place] [address] Dr. Lupis Santana Globulin (S) [Mass/Vol] 3.4 g/dL Normal [facility] Comment on above: Performed By: #### C MP #### [facility] [address] [place] [address] [address] Lupis Santana Glucose [Mass/Vol] 105 mg/dL Normal 74-106 [facility] Comment on above: Performed By: #### C MP #### [facility] [address] [place] [address] Dr. Lupis Santana Potassium [Moles/Vol] 3.7 mmol/L Normal 3.5-5.1 The [facility] Comment on above: Performed By: #### C MP #### [facility] [address] [place] [address] Dr. Lupis Santana Protein [Mass/Vol] 6.9 g/dL Normal 6.4-8.2 [facility] Comment on above: Performed By: #### C MP #### [facility] [address] [place] [address] Dr. Lupis Santana Sodium [Moles/Vol] 136 mmol/L Normal 136-145 [facility] Comment on above: Performed By: #### C MP #### [facility] [address] [place] [address] [address] Lupis Santana Urea nitrogen [Mass/Vol] 11.0 mg/dL Normal 7.0-18.0 The [facility] Comment on above: Performed By: #### C MP #### [facility] [address] [place] [id number] [address] Lupis Santana Urea nitrogen/Creatinin e [Mass ratio] 13.6 mg/mg Normal The [facility] Comment on above: Performed By: #### C MP #### [facility] [address] [place] [address] [address] Lupis Santana TROPONIN, HIGH SENSITIVITYon 04-15-2022 HSTROP 4.9 pg/mL Normal 4.0-51.3 The [facility] Comment on above: Result Comment: CUT- OFF POINTS HAVE BEEN ESTABLISHED BASED ON THE FOURTH UNIVERSAL DEFINITIONS OF MYOCARDIAL INFARCTION. THE UPPER REFERENCE LIMIT (URL) OF TROPONIN, DEFINED THE 99TH PERCENTILE OF cTnI DISTRIBUTION IN A REFERENCE POPULATION, HAS BEEN CONFIRMED THE DECISION THRESHOLD FOR SD DIAGNOSIS. Performed By: #### H STROPN #### [facility] [address] [place] [address] Dr. Lupis Santana HSTROP 4.1 pg/mL Normal 4.0-51.3 The [facility] Comment on above: Result Comment: CUT- OFF POINTS HAVE BEEN ESTABLISHED BASED ON THE FOURTH UNIVERSAL DEFINITIONS OF MYOCARDIAL INFARCTION. THE UPPER REFERENCE LIMIT (URL) OF TROPONIN, DEFINED THE 99TH PERCENTILE OF cTnI DISTRIBUTION IN A REFERENCE POPULATION, HAS BEEN CONFIRMED THE DECISION THRESHOLD FOR SD DIAGNOSIS. Performed By: #### H ILDEFONSOPN ####[facility] [address] [place] [address]Dr. Lupis Santana URINE MICROSCOPIC ONLYon BACTERIA LARGE Abnormal NONE SEEN The [facility] Comment on above: Performed By: #### THERESA VALIENTE #### [facility] Laboratory [address] [place], [place] [id number] Dr. Lupis Santana Bacteria identified Cx Nom (U) INDICATED Normal The [facility] Comment on above: Performed By: #### THERESA VALIENTE #### [facility] [address] [place] [address] Dr. Lupis Santana CAST NONE SEEN Normal NONE SEEN The [facility] Comment on above: Performed By: #### Danilo HAND UMICRO #### [facility] [address] [place] [address] Dr. Lupis Santana Crystals LM Nom (Urine sed) NONE SEEN Normal NONE SEEN [facility] Comment on above: Performed By: #### Danilo HAND UMICRO #### [facility] [address] [place] [address] Dr. Lupis Santana Epithelial cells LM Ql (Urine sed) RARE Normal NONE SEEN /RARE The [facility] Comment on above: Performed By: #### Danilo HAND UMICRO #### [facility] [address] [place] [address] Dr. Lupis Santana MUCOUS TRACE Abnormal NONE SEEN [facility] Comment on above: Performed By: #### Danilo HAND UMICRO #### [facility] [address] [place] [address] Dr. Lupis Santana RBC 0-2 Normal 0-2 [facility] Comment on above: Performed By: #### Danilo HAND UMICRO #### [facility] [address] [place] [address] Dr. Lupis Santana WBC 5-10 Abnormal NONE SEEN The [facility] Comment on above: Performed By: #### Danilo HAND UMICRO #### [facility] [address] [place] [address] Dr. uLpis Santana XR CHEST 1 Von 04-15-2022 XR [...] LAUREN RANDLE Date: 2022-04-15 16:09 Normal The [facility] CBC AUTO DIFFon 01-13-2022 BASO # 0.1 103/ul Normal 0.0-0.1 The [facility] Comment on above: Performed By: #### C BC ####[facility] [address] [place] [address]Dr. Lupis Santana Basophils/100 WBC (Bld) 1.1 % Normal 0.2-2.0 The [facility] Comment on above: Performed By: #### C BC ####[facility] [address] [place], [place] [address]Dr. Lupis Santana EO # 0.1 103/ul Normal 0.0-0.7 The [facility] Comment on above: Performed By: #### C BC ####[facility] [address] [place], [place] [address]Dr. Lupis Santana Eosinophils/100 WBC (Bld) 2.2 % Normal 0.9-7.0 The [facility] Comment on above: Performed By: #### C BC ####[facility] [address] [place], [place] [address]Dr. Lupis Santana Erythrocyte distribution width (RBC) [Ratio] 14.4 % Normal 11.0-15.0 The [facility] Comment on above: Performed By: #### C BC ####[facility] [address] [place], [place] [address]Dr. Lupis Santana Hematocrit (Bld) [Volume fraction] 38.7 % Normal 36.0-48.0 The [facility] Comment on above: Performed By: #### C BC ####[facility] [address] [place], [place] [address]Dr. Lupis Santana Hemoglobin (Bld) [Mass/Vol] 11.8 g/dL Critically low 12.0-16.0 The [facility] Comment on above: Performed By: #### C BC ####[facility] [address] [place], [place] [address]Dr. Lupis Santana IG # 0.02 10e3/ul Normal 0.00-0.03 The [facility] Comment on above: Performed By: #### C BC ####[facility] [address] [place], [place] [address]DrArturo Santana IG % 0.4 % Normal 0.0-0.5 [facility] Comment on above: Performed By: #### C BC ####[facility] [address] [place] [address]DrArturo Santana LYMPH # 1.7 103/ul Normal 1.2-3.8 [facility] Comment on above: Performed By: #### C BC ####[facility] [address] [place] [address]DrArturo Santana Lymphocytes/100 WBC (Bld) 31.8 % Normal 20.5-60.0 The [facility] Comment on above: Performed By: #### C BC ####[facility] [address] [place], [place] [address]DrArturo Santana MANUAL DIFF REQ NO Normal [facility] Comment on above: Performed By: #### C BC ####[facility] [address] [place] [address]DrArturo Santana MCH (RBC) [Entitic mass] 26.8 pg Normal 26.7-34.0 [facility] Comment on above: Performed By: #### C BC ####[facility] [address] [place], [place] [address]DrArturo Santana MCHC (RBC) [Mass/Vol] 30.5 g/dL Normal 29.9-35.2 The [facility] Comment on above: Performed By: #### C BC ####[facility] [address] [place], [place] [address]DrArturo Santana MCV (RBC) [Entitic vol] 88.0 fL Normal 81.0-99.0 The [facility] Comment on above: Performed By: #### C BC ####[facility] [address] [place], [place] [address]DrArturo Santana MONO # 0.5 103/ul Normal 0.3-0.8 [facility] Comment on above: Performed By: #### C BC ####[facility] [address]we[address]eds[address] [place], [place] [address]DrArturo Santana Monocytes/100 WBC (Bld) 8.4 % Normal 1.7-12.0 The [facility] Comment on above: Performed By: #### C BC ####[facility] [address] [place] [address]Dr. Lupis Santana NEUT # 3.0 103/ul Normal 1.4-6.5 The [facility] Comment on above: Performed By: #### C BC ####[facility] [address] [place] [address]Dr. Lupis Santana Neutrophils/100 WBC (Bld) 56.1 % Normal 43.0-75.0 The [facility] Comment on above: Performed By: #### C BC ####[facility] [address]woef[address] [place] [address]Dr. Lupis Santana Platelet mean volume (Bld) [Entitic vol] 10.4 fL Normal 9.5-13.5 The [facility] Comment on above: Performed By: #### C BC ####[facility] [address] [place] [address]Dr. Lupis Santana PLT 300 103/ul Normal 150-450 The [facility] Comment on above: Performed By: #### C BC ####[facility] [address] [place], [place] [address]Dr. Lupis Santana RBC 4.40 106/ul Normal 4.20-5.40 The [facility] Comment on above: Performed By: #### C BC ####[facility] [address] [place] [address]Dr. Lupis Santana WBC 5.4 103/ul Normal 4.0-11.0 The [facility] Comment on above: Performed By: #### C BC ####[facility] [address] [place] [address]Dr. Lupis Santana LIPID PROFILEon 01-13-2022 CHOL-HDL RATIO NORM SEE BELOW Normal The [facility] Comment on above: Result Comment: 3.3 - 4.4 LOW RISK 4.4 - 7.1 AVERAGE RISK 7.1 - 11.0 MODERATE RISK >11.0 HIGH RISK Performed By: #### L IPID, CMP, TSH ####[facility] [address] [place] [id number]. Lupis Santana Cholesterol [Mass/Vol] 225 mg/dL Critically high <=200 The [facility] Comment on above: Performed By: #### L IPID, CMP, TSH ####[facility] [address]murv[address] [place] [id number]. Lupis Santana Cholesterol in HDL [Mass/Vol] 73 mg/dL Critically high 40-60 The [facility] Comment on above: Performed By: #### L IPID, CMP, TSH ####[facility] [address] [place] [id number]. Lupis Santana Cholesterol in LDL [Mass/Vol] 141.6 mg/dL Normal The [facility] Comment on above: Performed By: #### L IPID, CMP, TSH ####[facility] [id number] [place] [id number]. Lupis Santana Cholesterol.total/ Cholesterol in HDL [Mass ratio] 3.1 {ratio} Normal The [facility] Comment on above: Performed By: #### L IPID, CMP, TSH ####[facility] [id number] [place] [id number]. Lupis Santana HDL NORMAL > or = 60 mg/dl - LO W CARDIOVASCULAR RISK <40 mg/dl - HIGH CARDIOVASCULAR RISK Normal The [facility] Comment on above: Performed By: #### L IPID, CMP, TSH ####[facility] [id number] [place] [id number]. Lupis Santana LDL CALC NORMAL SEE BELOW Normal [facility] Comment on above: Result Comment: <100 mg/dl OPTIMAL 100 - 129 mg/dl NEAR OR ABOVE OPTIMAL 130 - 159 mg/dl BORDERLINE HIGH 160 - 189 mg/dl HIGH >190 mg/dl VERY HIGH Performed By: #### L IPID, CMP, TSH ####[facility] [id number] [place] [id number]. Lupis Santana Triglyceride [Mass/Vol] 52 mg/dL Normal <=150 [facility] Comment on above: Performed By: #### L IPID, CMP, TSH ####[facility] [address] [place], [place] [address]DbDr. Lupis Santana VLDL CALC 10.4 mg/dL Normal [facility] Comment on above: Performed By: #### L IPID, CMP, TSH ####[facility] [address] [place], [place] [address]DfDr. Lupis Santana PROF 14(COMP METB)on 022 Albumin [Mass/Vol] 3.6 g/dL Normal 3.4-5.0 [facility] Comment on above: Performed By: #### L IPID, CMP, TSH #### [facility] [address] [address] [address] Lupis Santana Albumin/Globulin [Mass ratio] 1.1 {ratio} Normal [facility] Comment on above: Performed By: #### L IPID, CMP, TSH #### [facility] [address] [address] [address] Lupis Santana ALP [Catalytic activity/Vol] 72 U/L Normal 46-116 [facility] Comment on above: Performed By: #### L IPID, CMP, TSH #### [facility] [address] [address] [address] Lupis Santana ALT [Catalytic activity/Vol] 17 U/L Normal 14-59 [facility] Comment on above: Performed By: #### L IPID, CMP, TSH #### [facility] [address] [address] [address] Lupis Santana Anion gap [Moles/Vol] 13.0 mmol/L Normal [facility] Comment on above: Performed By: #### L IPID, CMP, TSH #### [facility] [address] [address] [address] Lupis Santana AST [Catalytic activity/Vol] 20 U/L Normal 15-37 [facility] Comment on above: Performed By: #### L IPID, CMP, TSH #### [facility] [address] [address] [address] Lupis Santana Bilirubin [Mass/Vol] 0.2 mg/dL Normal 0.2-1.0 [facility] Comment on above: Performed By: #### L IPID, CMP, TSH #### [facility] [address] [address] [address] Lupis Santana Calcium [Mass/Vol] 8.9 mg/dL Normal 8.5-10.1 [facility] Comment on above: Performed By: #### L IPID, CMP, TSH #### [facility] [address] [address] [address] Lupis Santana Chloride [Moles/Vol] 103 mmol/L Normal 98-107 [facility] Comment on above: Performed By: #### L IPID, CMP, TSH #### [facility] [address] [address] [address] Lupis Santana CO2 [Moles/Vol] 26.2 mmol/L Normal 21.0-32.0 [facility] Comment on above: Performed By: #### L IPID, CMP, TSH #### [facility] [address] [address] [address] Lupis Santana Creatinine [Mass/Vol] 0.71 mg/dL Normal 0.55-1.02 [facility] Comment on above: Performed By: #### L IPID, CMP, TSH #### [facility] [address] [address] [address] Lupis Santana EGFR-AF IRISH >60 Normal >=60 [facility] Comment on above: Performed By: #### L IPID, CMP, TSH #### [facility] [address] [place] [address] Dr. Lupis Santana EGFR-NON AF IRISH >60 Normal >=60 [facility] Comment on above: Performed By: #### L IPID, CMP, TSH #### [facility] [address] [address] [address] Lupis Santana Globulin (S) [Mass/Vol] 3.4 g/dL Normal [facility] Comment on above: Performed By: #### L IPID, CMP, TSH #### [facility] [address] [address] [address] Lupis Santana Glucose [Mass/Vol] 102 mg/dL Normal 74-106 [facility] Comment on above: Performed By: #### L IPID, CMP, TSH #### [facility] [address] [address] [address] Lupis Santana Potassium [Moles/Vol] 4.2 mmol/L Normal 3.5-5.1 [facility] Comment on above: Performed By: #### L IPID, CMP, TSH #### [facility] [address] [address] [address] Lupis Santana Protein [Mass/Vol] 7.0 g/dL Normal 6.4-8.2 [facility] Comment on above: Performed By: #### L IPID, CMP, TSH #### [facility] [address] [address] [address] Lupis Santana Sodium [Moles/Vol] 138 mmol/L Normal 136-145 [facility] Comment on above: Performed By: #### L IPID, CMP, TSH #### [facility] [address] [place] [address] Dr. Lupis Santana Urea nitrogen [Mass/Vol] 15.0 mg/dL Normal 7.0-18.0 [facility] Comment on above: Performed By: #### L IPID, CMP, TSH #### [facility] [address] [place] [address] Dr. Lupis Santana Urea nitrogen/Creatinin e [Mass ratio] 21.1 mg/mg Normal The [facility] Comment on above: Performed By: #### L IPID, CMP, TSH #### [facility] [address] [address] [address] Lupis Santana TSHon 01-13-2022 TSH 1.162 uIU/mL Normal 0.358-3.740 [facility] Comment on above: Performed By: #### L IPID, CMP, TSH ####[facility] [id number] [place] [address]Dr. Lupis Santana TSH RANGE SEE BELOW Normal The [facility] Comment on above: Result Comment: <0.3 4 UIU/ml HYPERTHYROID 0.34-5.60 UIU/ml EUTHYROID >5.60 UIU/ml HYPOTHYROID Performed By: #### L IPID, CMP, TSH ####[facility] [address] [place], [place] [address]JrArturo Santana Encounters Encounter Date Encounter Type Care Provider Facility Start: 12-11-2022 End: 12-12-2022 ambulatory HOMAR HICKEY Facility:[facility] Start: 04-15-2022 End: 04-15-2022 ambulatory FRANKLIN DALY Facility:[facility] Start: 01-13-2022 End: 01-14-2022 ambulatory FRANKLIN DALY Facility: Payers Date Payer Category Payer Unknown [id number] [id number] 1970 Unknown [id number] 1970 Unknown [id number] [id number] 1960 Medicaid [id number] 1960 Medicare [id number] Summary Purpose Family History No Family History Records Found Advance Directives No Advanced Directives Records Found Additional Source Comments INFORMATION SOURCE (unrecogn ized section and content) DATE CREATED AUTHOR 12/15/2022 [facility] FOR RECORDS PERTAINING TO PATIENTS WHO ARE [...] BE BASED ON THE PRIMARY CLINICAL RECORDS. [employer] provides no warranty or guarantee of the accuracy or completeness of information in this document.
--- NOTE | 2024-04-27 12:04 | PM.HP ---
HPI H&P: HPI History of Present Illness Chief complaint: ALTERED MENTAL STATUS, UTI, HYPOTENSION Narrative: 53 y o female was brought over to ED by EMS after her daughter called 911 for being unresponsive at home. According to family, they could not wake her up but by the time EMS arrived she started to wake up and respond. According to the patient, she has hx of seizure disorder and that this is a very typical presentation of her seizure. She reports head tingling prior to seizures. She does not remember anything upto the point where she was in ED and likely had some post ictal confusion on her way to the hospital. She feels week overall but more or less at her baseline status. She denies any active complaints. While in ED she was borderline hypotensive that seems to be her baseline upon review of her old vital signs. Patient's work up revealed possible UTI for which she was started on IV rocephin. Opioid HPI Opioid Management Most Recent Pain and Opioid Data: Last Pain Scale 8 04/27/24 08:11 Last Pain Assessment 04/27/24 11:00 Last ORT Total Score 3 04/27/24 10:40 Last ORT Risk Category Low Risk 04/27/24 10:40 Ur Phencyclidine Scrn Negative (NEGATIVE) 11/24/23 10:00 Review of Systems ROS Status of ROS 10 or more systems reviewed and unremarkable except as noted in history and below [facility] Medical History (Updated 04/27/24 @ 12:12 by Shaikh Jovanny MD) Seizure disorder ?G40.909 - Epilepsy, unspecified, not intractable, without status epilepticus (ICD-10) Presence of urostomy ?Z93.6 - Other artificial openings of urinary tract status (ICD-10) Diabetes ?E11.9 - Type 2 diabetes mellitus without complications (ICD-10) Bladder cancer ?C67.9 - Malignant neoplasm of bladder, unspecified (ICD-10) Multiple sclerosis ?G35 - Multiple sclerosis (ICD-10) Surgical History (Updated 04/27/24 @ 10:33 by Sirena Cobb) History of bladder surgery ?Z98.890 - Other specified postprocedural states (ICD-10) Family History (Updated 04/27/24 @ 10:35 by Sirena Cobb) Father Family history of CHF (congestive heart failure) Family history of hypertension Family history of myocardial infarction Grandmother Family history of cancer Aunt Family history of cancer Social History (Updated 04/27/24 @ 10:36 by Sirena Cobb) Within the past year, how often did you have a drink containing alcohol: never Within the past year, how often did you have six or more drinks on one occasion: never Score interpretation: A score less than 3 is consistent with normal alcohol consumption. Smoking status: Current every day smoker Do you use any of these nicotine containing products: vaping products Non-prescribed substance use: denies use Previous occupational history: disabled Highest level of school completed/degree received: high school graduate Are you now , , , , never or living with a partner: In a typical week, how many times do you talk on the telephone with family, friends, or neighbors: 3 or more times per week How often do you get together with friends or relatives: 3 or more times per week How often do you attend anglican or denominational services: never Do you belong to any clubs or organizations such as anglican groups unions, [employer] or athletic groups, or school groups: no Total score: 1 Score interpretation: A score of less than or equal to 1 indicates the most socially isolated. Little interest or pleasure in doing things: not at all Feeling down, depressed, or hopeless: not at all Feel stressed/tense/nervous/anxious/difficulty sleeping: not at all Meds Home Medications and Allergies Home Medications ?Medication ?Instructions ?Recorded ?Confirmed ?Type atorvastatin 10 mg tablet 10 mg PO DAILY 12/27/23 04/27/24 History carisoprodol 350 mg tablet 350 mg PO TID PRN muscle pain 12/27/23 04/27/24 History pantoprazole 40 mg tablet,delayed 40 mg PO DAILY 12/27/23 04/27/24 History release venlafaxine 150 mg 150 mg PO DAILY 12/27/23 04/27/24 History capsule,extended release 24 hr albuterol sulfate 90 mcg/actuation 2 puff inhalation Q4H PRN 04/27/24 04/27/24 History aerosol inhaler shortness of breath or wheezing fluticasone furoate 200 1 inh inhalation DAILY 04/27/24 04/27/24 History mcg-vilanterol 25 mcg/dose inhalation powder Allergies Allergy/AdvReac Type Severity Reaction Status Date / Time Penicillins Allergy Unknown Unknown Verified 04/27/24 07:28 Exam Constitutional Vital Signs, click to edit/add: Last Vital Signs Temp 97.6 F 04/27/24 10:40 Pulse 86 04/27/24 10:40 Resp 18 04/27/24 10:40 BP 96/68 04/27/24 10:40 Pulse Ox 93 L 04/27/24 10:40 O2 Del Method Nasal Cannula 04/27/24 10:40 O2 Flow Rate 2 04/27/24 10:40 Results Labs Labs: Short CBC 04/27/24 Range/Units 07:45 WBC 6.9 (4.0-11.0) 10^3/uL Hgb 12.9 (12.0-16.0) g/dL Hct 40.6 (36.0-48.0) % Plt Count 264 (150-450) 10^3/uL BMP 04/27/24 07:45 Sodium 136 Potassium 4.6 Chloride 101 Carbon Dioxide 27.9 BUN 6.0 L Creatinine 0.62 Glucose 92 Calcium 9.0 Liver Function 04/27/24 Range/Units 07:45 Total Bilirubin 0.4 (0.2-1.0) mg/dL AST 25 (15-37) U/L ALT 15 (14-59) U/L Alkaline Phosphatase 81 (46-116) U/L Albumin 3.4 (3.4-5.0) g/dL Urine 04/27/24 Range/Units 08:01 Urine Color Yellow (YELLOW) Urine Clarity Slightly cloudy A (CLEAR) Urine pH 6.0 (5.0-9.0) Ur Specific Ellery 1.020 (1.005-1.025) Urine Protein Negative (NEG/TRACE) mg/dL Urine Glucose (UA) Negative (NEGATIVE) mg/dL Assessment and Plan Assessment and Plan (1) Breakthrough seizure: Assessment and Plan: Patient likely had breakthrough seizure. She is unsure what she takes for seizures but it sounds like she uses Keppra. She follows Neurology as outpatient. Seizures are poorly controlled and on average she has 1 seizure a month. Her last seizure was 2 weeks ago and she reports it all depends on her stress levels. Monitor closely. c/w seizure precautions. If no more seizures, will d/c home with outpatient f/u with Neuro and standard seizure precautions. (2) Seizure disorder: Assessment and Plan: Poorly controlled and typically has one breakthrough seizure a month. Seems like she is on Keppra for it. Need to confirm her medications. Reports compliance with medications. (3) UTI (urinary tract infection): Assessment and Plan: UA c/w UTI. Has urostomy in place. f/u cx. started on rocephin. Qualifiers: Urinary tract infection type: acute cystitis Hematuria presence: without hematuria Qualified Code(s): N30.00 - Acute cystitis without hematuria (4) Generalized weakness: Assessment and Plan: Likely due to UTI, breakthrough seizure. Gentle IV hydration. PT eval. (5) Multiple sclerosis: Assessment and Plan: Stable, relapsing/remitting. Not on DMARDS for it. No neurological weakness currently.
[2024-04-27] MEDS: 0.9 % SODIUM CHLORIDE 1,000 ML 100 ML IV ×2 (13:02→22:24)
[2024-04-27] MEDS: ENOXAPARIN SODIUM 40 MG/0.4 ML SYRINGE SUBQ (13:02)
--- NOTE | 2024-04-27 13:08 | SWNOTE1 ---
Pt was sleeping, SW to check back later today to completed assessment.
--- NOTE | 2024-04-27 14:13 | SWNOTE1 ---
SW met with pt to discuss dc needs. Pt lives at home with her mother and father. Pt able to perform ADL's independently. She does not use a device at home but does have some limitations due to her MS. Pt can't drive, pt has her parents who assist with grocery shopping and taking to and from doctor's. Pt has stairs in the home that she does still use. At this time pt has no concerns/needs at discharge. SW to follow as needed.
--- NOTE | 2024-04-27 14:15 | SWNOTE1 ---
Medicare Outpatient Observation Notice reviewed and discussed with patient. Pt. verbalized understanding and signed the form. Original given to patient and copy placed in patient?s chart.
--- OUTSIDE RECORDS SUMMARY | 2024-04-27 15:27 | XMS_ITS | CCD ---
Author Organization [facility] Inform ion Partnership [facility] Care Team Providers Care Trimming Caser Name Role Phone FRANKLIN DALY Primary Care Unavailable MANUEL ., MARY Admitting Unavailable MANUEL ., MARY Attending Unavailable ANYI RPIETO Consulting Unavailable LAUREN RANDLE Consulting Unavailable HOMAR [...] source) Penicillins Drug allergy (disorder) 05-04-2013 [facility] Repository Problems Active Problems Problem Classification [...] by: LUIS CORREA Date: 2022-12-12 07:24 Normal [facility] MRI LSPINE WO CONon 12-13-19 23 MRI [...] AMBER LILLY Date: 2022-12-12 07:21 Normal [facility] CULTURE URINEon 04-18-2022 CULTURE URINE Isolate [...] Trimethoprim/Sulfamet hoxazole <=20 S F Normal [facility] Comment on above: Performed By: #### U RCX #### [facility] [address] [place], [place] [address] Dr. Lupis Santana CBC AUTO DIFFon 04-15-2022 BASO # 0.0 103/ul Normal 0.0-0.1 [facility] Comment on above: Performed By: #### C BC ####[facility] [address] [place], [place] [address]TaDr. Lupis Santana Basophils/100 WBC (Bld) 0.6 % Normal 0.2-2.0 [facility] Comment on above: Performed By: #### C BC ####[facility] [address] [place] [address]DrArturo Santana EO # 0.0 103/ul Normal 0.0-0.7 [facility] Comment on above: Performed By: #### C BC ####[facility] Ypvvysbrqa[address] [place] [address]Dr. Lupis Santana Eosinophils/100 WBC (Bld) 0.3 % Critically low 0.9-7.0 [facility] Comment on above: Performed By: #### C BC ####[facility] [address] [place] [address]Dr. Lupis Santana Erythrocyte distribution width (RBC) [Ratio] 13.9 % Normal 11.0-15.0 [facility] Comment on above: Performed By: #### C BC ####[facility] Ajbma[address] [place], [place] [address]Dr. Lupis Santana Hematocrit (Bld) [Volume fraction] 37.7 % Normal 36.0-48.0 [facility] Comment on above: Performed By: #### C BC ####[facility] Sf[address] [place], [place] [address]Dr. Lupis Santana Hemoglobin (Bld) [Mass/Vol] 11.9 g/dL Critically low 12.0-16.0 [facility] Comment on above: Performed By: #### C BC ####[facility] [address] [place], [place] [address]Dr. Lupis Santana IG # 0.01 10e3/ul Normal 0.00-0.03 [facility] Comment on above: Performed By: #### C BC ####[facility] [address] [place], [place] [address]Dr. Lupis Santana IG % 0.3 % Normal 0.0-0.5 [facility] Comment on above: Performed By: #### C BC ####[facility] Dln[address]kiwzq[address] [place], [place] [address]Dr. Lupis Santana LYMPH # 1.3 103/ul Normal 1.2-3.8 [facility] Comment on above: Performed By: #### C BC ####[facility] Ofr[address]lcn[address] [place], [place] [address]Dr. Lupis Santana Lymphocytes/100 WBC (Bld) 36.3 % Normal 20.5-60.0 [facility] Comment on above: Performed By: #### C BC ####[facility] [address] [place] [address]Dr. Lupis Santana MANUAL DIFF REQ NO Normal [facility] Comment on above: Performed By: #### C BC ####[facility] V[address] [place] [address]Dr. Lupis Santana MCH (RBC) [Entitic mass] 27.4 pg Normal 26.7-34.0 [facility] Comment on above: Performed By: #### C BC ####[facility] [address]spbsmq[address] [place] [address]Dr. Lupis Santana MCHC (RBC) [Mass/Vol] 31.6 g/dL Normal 29.9-35.2 [facility] Comment on above: Performed By: #### C BC ####[facility] Qeumbnetgh[address] [place], [place] [address]Dr. Lupis Santana MCV (RBC) [Entitic vol] 86.7 fL Normal 81.0-99.0 [facility] Comment on above: Performed By: #### C BC ####[facility] H[address] [place], [place] [address]Dr. Lupis Santana MONO # 0.6 103/ul Normal 0.3-0.8 [facility] Comment on above: Performed By: #### C BC ####[facility] [address] [place] [address]Dr. Lupis Santana Monocytes/100 WBC (Bld) 15.4 % Critically high 1.7-12.0 [facility] Comment on above: Performed By: #### C BC ####[facility] Aws[address] [place], [place] [address]Dr. Lupis Santana NEUT # 1.7 103/ul Normal 1.4-6.5 [facility] Comment on above: Performed By: #### C BC ####[facility] [address]xbr[address] [place], [place] [address]Dr. Lupis Santana Neutrophils/100 WBC (Bld) 47.1 % Normal 43.0-75.0 [facility] Comment on above: Performed By: #### C BC ####[facility] [address] [place] [address]Dr. Lupis Santana Platelet mean volume (Bld) [Entitic vol] 9.1 fL Critically low 9.5-13.5 [facility] Comment on above: Performed By: #### C BC ####[facility] [address] [place] [address]Dr. Lupis Santana PLT 189 103/ul Normal 150-450 [facility] Comment on above: Performed By: #### C BC ####[facility] [address]eb[address]ax[address] [place] [address]Dr. Lupis Santana RBC 4.35 106/ul Normal 4.20-5.40 [facility] Comment on above: Performed By: #### C BC ####[facility] Qxystbkcgp[address] [place] [address]Dr. Lupis Santana WBC 3.6 103/ul Critically low 4.0-11.0 [facility] Comment on above: Performed By: #### C BC ####[facility] [address]xp[address] [place] [address]Dr. Lupis Santana Covid-19 PCR (CVDTB)on 04-03 SARS-CoV-2 (COVID-19) RNA BARBARA+probe Ql (Unsp spec) Detected Critically abnormal NOT DETECTED [facility] Comment on above: Result Comment: This test is not yet approved or cleared by the [place] FDA. When there are no FDA-approved or cleared tests available, and other criteria are met, FDA can make tests available under an emergency access mechanism called an Emergency Use Authorization (EUA). The EUA for this test is supported by the [place] of Health and Human Service's declaration that [...] used). Performed By: #### C VDTBH #### [facility] [address] [place] [address] [address] Lupis Santana ER URINE PROFILEon 2 Bilirubin Ql (U) Negative Normal NEGATIVE [facility] Comment on above: Performed By: #### Danilo HAND UMICRO #### [facility] [address] [place] [address] Dr. Lupis Santana Clarity (U) SL CLOUDY Abnormal CLEAR [facility] Comment on above: Performed By: #### Danilo HAND UMICRO #### [facility] [address] [place] [address] Dr. Lupis Santana Color (U) YELLOW Normal YELLOW [facility] Comment on above: Performed By: #### OMID VALIENTERO #### [facility] [address] [place] [address] Dr. Lupis SANCHEZ A micrscopic examination will be performed if indicated. Normal [facility] Comment on above: Performed By: #### PINKY VALIENTEICRO #### [facility] [address] [place] [address] Dr. uLpis Santana Glucose Ql (U) Negative Normal NEGATIVE [facility] Comment on above: Performed By: #### OMID VALIENTERO #### [facility] [address] [place] [address] Dr. Lupis Santana Hemoglobin Ql (U) Negative Normal NEGATIVE [facility] Comment on above: Performed By: #### PINKY VALIENTEICRO #### [facility] [address] [place] [address] [address] Lupis Santana Ketones Ql (U) Negative Normal NEGATIVE [facility] Comment on above: Performed By: #### OMID VALIENTERO #### [facility] [address] [place] [address] Dr. Lupis Santana LEUKOCYTES Negative Normal NEGATIVE [facility] Comment on above: Performed By: #### PINKY VALIENTEICRO #### [facility] [address] [place] [address] Dr. Lupis Santana Nitrite Ql (U) Positive Abnormal NEGATIVE [facility] Comment on above: Performed By: #### Danilo HAND, UMICRO #### [facility] [address] [place] [address] Dr. Lupis Santana pH (U) 6.0 [pH] Normal 5-9 [facility] Comment on above: Performed By: #### Danilo HAND, UMICRO #### [facility] [address] [place] [address] Dr. Lupis Santana SPEC GRAVITY 1.020 Normal 1.005-<=1.025 [facility] Comment on above: Performed By: #### Danilo HAND, UMICRO #### [facility] [address] [place] [address] Dr. Lupis Santana UA PROTEIN Negative Normal NEGATIVE/ TRACE [facility] Comment on above: Performed By: #### Danilo HAND, UMICRO #### [facility] [address] [place] [address] Dr. Lupis Santana UR MICRO IND INDICATED Normal [facility] Comment on above: Performed By: #### Danilo HAND, UMICRO #### [facility] [address] [place] [address] Dr. Lupis Santana Urobilinogen Qn (U) 1.0 {Batsheva'U}/dL Normal 0.2 - 1.0 [facility] Comment on above: Performed By: #### Danilo HAND, UMICRO #### [facility] [address] [place] [address] Dr. Lupis Santana LACTATE/LACTIC ACIDon 2021 Lactate [Moles/Vol] 0.5 mmol/L Normal 0.4-1.9 [facility] Comment on above: Performed By: #### L ACT #### [facility] [address] [place] [address] Dr. Lupis Santana PROF 14(COMP METB)on 022 Albumin [Mass/Vol] 3.5 g/dL Normal 3.4-5.0 [facility] Comment on above: Performed By: #### C MP #### [facility] [address] [place] [address] Dr. Lupis Santana Albumin/Globulin [Mass ratio] 1.0 {ratio} Normal [facility] Comment on above: Performed By: #### C MP #### [facility] [address] [place] [address] Dr. Lupis Santana ALP [Catalytic activity/Vol] 76 U/L Normal 46-116 [facility] Comment on above: Performed By: #### C MP #### [facility] [address] [place] [address] [address] Lupis Santana ALT [Catalytic activity/Vol] 17 U/L Normal 14-59 [facility] Comment on above: Performed By: #### C MP #### [facility] [address] [place] [address] Dr. Lupis Santana Anion gap [Moles/Vol] 9.9 mmol/L Normal [facility] Comment on above: Performed By: #### C MP #### [facility] [address] [place] [address] Dr. Lupis Santana AST [Catalytic activity/Vol] 18 U/L Normal 15-37 [facility] Comment on above: Performed By: #### C MP #### [facility] [address] [place] [address] Dr. Lupis Santana Bilirubin [Mass/Vol] 0.3 mg/dL Normal 0.2-1.0 [facility] Comment on above: Performed By: #### C MP #### [facility] [address] [place] [address] Dr. Lupis Santana Calcium [Mass/Vol] 8.7 mg/dL Normal 8.5-10.1 [facility] Comment on above: Performed By: #### C MP #### [facility] [address] [place] [address] Dr. Lupis Santana Chloride [Moles/Vol] 104 mmol/L Normal 98-107 [facility] Comment on above: Performed By: #### C MP #### [facility] [address] [place] [address] Dr. Lupis Santana CO2 [Moles/Vol] 25.8 mmol/L Normal 21.0-32.0 [facility] Comment on above: Performed By: #### C MP #### [facility] [address] [place] [address] [address] Lupis Santana Creatinine [Mass/Vol] 0.81 mg/dL Normal 0.55-1.02 [facility] Comment on above: Performed By: #### C MP #### [facility] [address] [place] [address] [address] Lupis Santana EGFR-AF TANZANIAN >60 Normal >=60 [facility] Comment on above: Performed By: #### C MP #### [facility] [address] [place] [address] [address] Lupis Santana EGFR-NON AF TANZANIAN >60 Normal >=60 [facility] Comment on above: Performed By: #### C MP #### [facility] [address] [place] [address] Dr. Lupis Santana Globulin (S) [Mass/Vol] 3.4 g/dL Normal [facility] Comment on above: Performed By: #### C MP #### [facility] [address] [place] [address] [address] Lupis Santana Glucose [Mass/Vol] 105 mg/dL Normal 74-106 [facility] Comment on above: Performed By: #### C MP #### [facility] [address] [place] [address] Dr. Lupis Santana Potassium [Moles/Vol] 3.7 mmol/L Normal 3.5-5.1 [facility] Comment on above: Performed By: #### C MP #### [facility] [address] [place] [address] Dr. Lupis Santana Protein [Mass/Vol] 6.9 g/dL Normal 6.4-8.2 [facility] Comment on above: Performed By: #### C MP #### [facility] [address] [place] [address] Dr. Lupis Santana Sodium [Moles/Vol] 136 mmol/L Normal 136-145 [facility] Comment on above: Performed By: #### C MP #### [facility] [address] [place] [address] [address] Lupis Santana Urea nitrogen [Mass/Vol] 11.0 mg/dL Normal 7.0-18.0 [facility] Comment on above: Performed By: #### C MP #### [facility] [address] [place] [id number] [address] Lupis Santana Urea nitrogen/Creatinin e [Mass ratio] 13.6 mg/mg Normal [facility] Comment on above: Performed By: #### C MP #### [facility] [address] [place] [address] [address] Lupis Santana TROPONIN, HIGH SENSITIVITYon 04-15-2022 HSTROP 4.9 pg/mL Normal 4.0-51.3 [facility] Comment on above: Result Comment: CUT- OFF POINTS HAVE BEEN ESTABLISHED BASED ON THE FOURTH UNIVERSAL DEFINITIONS OF MYOCARDIAL INFARCTION. THE UPPER REFERENCE LIMIT (URL) OF TROPONIN, DEFINED THE 99TH PERCENTILE OF cTnI DISTRIBUTION IN A REFERENCE POPULATION, HAS BEEN CONFIRMED THE DECISION THRESHOLD FOR VT DIAGNOSIS. Performed By: #### H STROPN #### [facility] [address] [place] [address] Dr. Lupis Santana HSTROP 4.1 pg/mL Normal 4.0-51.3 [facility] Comment on above: Result Comment: CUT- OFF POINTS HAVE BEEN ESTABLISHED BASED ON THE FOURTH UNIVERSAL DEFINITIONS OF MYOCARDIAL INFARCTION. THE UPPER REFERENCE LIMIT (URL) OF TROPONIN, DEFINED THE 99TH PERCENTILE OF cTnI DISTRIBUTION IN A REFERENCE POPULATION, HAS BEEN CONFIRMED THE DECISION THRESHOLD FOR VT DIAGNOSIS. Performed By: #### H ILDEFONSOPN ####[facility] [address] [place] [address]Dr. Lupis Santana URINE MICROSCOPIC ONLYon BACTERIA LARGE Abnormal NONE SEEN [facility] Comment on above: Performed By: #### THERESA VALIENTE #### [facility] [address] [place], [place] [id number] Dr. Lupis Santana Bacteria identified Cx Nom (U) INDICATED Normal [facility] Comment on above: Performed By: #### THERESA VALIENTE #### [facility] [address] [place] [address] Dr. Lupis Santana CAST NONE SEEN Normal NONE SEEN [facility] Comment on above: Performed By: #### Danilo HAND UMICRO #### [facility] [address] [place] [address] Dr. Lupis Santana Crystals LM Nom (Urine sed) NONE SEEN Normal NONE SEEN [facility] Comment on above: Performed By: #### Danilo HAND UMICRO #### [facility] [address] [place] [address] Dr. Lupis Santana Epithelial cells LM Ql (Urine sed) RARE Normal NONE SEEN /RARE [facility] Comment on above: Performed By: #### Danilo HAND UMICRO #### [facility] [address] [place] [address] Dr. Lupis Santana MUCOUS TRACE Abnormal NONE SEEN [facility] Comment on above: Performed By: #### Danilo HAND UMICRO #### [facility] [address] [place] [address] Dr. Lupis Santana RBC 0-2 Normal 0-2 [facility] Comment on above: Performed By: #### Danilo HAND UMICRO #### [facility] [address] [place] [address] Dr. Lupis Santana WBC 5-10 Abnormal NONE SEEN [facility] Comment on above: Performed By: #### Danilo HAND UMICRO #### [facility] [address] [place] [address] Dr. Lupis Santana XR CHEST 1 Von [...] LAUREN RANDLE Date: 2022-04-15 16:09 Normal [facility] CBC AUTO DIFFon 01-13-2022 BASO # 0.1 103/ul Normal 0.0-0.1 [facility] Comment on above: Performed By: #### C BC ####[facility] [address] [place] [address]Dr. Lupis Santana Basophils/100 WBC (Bld) 1.1 % Normal 0.2-2.0 [facility] Comment on above: Performed By: #### C BC ####[facility] [address] [place], [place] [address]Dr. Lupis Santana EO # 0.1 103/ul Normal 0.0-0.7 [facility] Comment on above: Performed By: #### C BC ####[facility] [address] [place], [place] [address]Dr. Lupis Santana Eosinophils/100 WBC (Bld) 2.2 % Normal 0.9-7.0 [facility] Comment on above: Performed By: #### C BC ####[facility] [address] [place], [place] [address]Dr. Lupis Santana Erythrocyte distribution width (RBC) [Ratio] 14.4 % Normal 11.0-15.0 [facility] Comment on above: Performed By: #### C BC ####[facility] [address] [place], [place] [address]Dr. Lupis Santana Hematocrit (Bld) [Volume fraction] 38.7 % Normal 36.0-48.0 [facility] Comment on above: Performed By: #### C BC ####[facility] [address] [place], [place] [address]Dr. Lupis Santana Hemoglobin (Bld) [Mass/Vol] 11.8 g/dL Critically low 12.0-16.0 [facility] Comment on above: Performed By: #### C BC ####[facility] [address] [place], [place] [address]Dr. Lupis Santana IG # 0.02 10e3/ul Normal 0.00-0.03 [facility] Comment on above: Performed By: #### C BC ####[facility] [address]rsts[address] [place], [place] [address]DrArturo Santana IG % 0.4 % Normal 0.0-0.5 [facility] Comment on above: Performed By: #### C BC ####[facility] [address] [place] [address]DrArturo Santana LYMPH # 1.7 103/ul Normal 1.2-3.8 [facility] Comment on above: Performed By: #### C BC ####[facility] [address]co[address] [place] [address]DrArturo Santana Lymphocytes/100 WBC (Bld) 31.8 % Normal 20.5-60.0 [facility] Comment on above: Performed By: #### C BC ####[facility] [address] [place], [place] [address]DrArturo Santana MANUAL DIFF REQ NO Normal [facility] Comment on above: Performed By: #### C BC ####[facility] [address] [place] [address]DrArturo Santana MCH (RBC) [Entitic mass] 26.8 pg Normal 26.7-34.0 [facility] Comment on above: Performed By: #### C BC ####[facility] [address] [place], [place] [address]DrArturo Santana MCHC (RBC) [Mass/Vol] 30.5 g/dL Normal 29.9-35.2 [facility] Comment on above: Performed By: #### C BC ####[facility] [address] [place], [place] [address]DrArturo Santana MCV (RBC) [Entitic vol] 88.0 fL Normal 81.0-99.0 [facility] Comment on above: Performed By: #### C BC ####[facility] [address] [place], [place] [address]DrArturo Santana MONO # 0.5 103/ul Normal 0.3-0.8 [facility] Comment on above: Performed By: #### C BC ####[facility] [address] [place], [place] [address]DrArturo Santana Monocytes/100 WBC (Bld) 8.4 % Normal 1.7-12.0 [facility] Comment on above: Performed By: #### C BC ####[facility] [address] [place] [address]Dr. Lupis Santana NEUT # 3.0 103/ul Normal 1.4-6.5 [facility] Comment on above: Performed By: #### C BC ####[facility] [address] [place] [address]Dr. Lupis Santana Neutrophils/100 WBC (Bld) 56.1 % Normal 43.0-75.0 [facility] Comment on above: Performed By: #### C BC ####[facility] [address] [place] [address]Dr. Lupis Santana Platelet mean volume (Bld) [Entitic vol] 10.4 fL Normal 9.5-13.5 [facility] Comment on above: Performed By: #### C BC ####[facility] [address] [place] [address]Dr. Lupis Santana PLT 300 103/ul Normal 150-450 [facility] Comment on above: Performed By: #### C BC ####[facility] [address] [place], [place] [address]Dr. Lupis Santana RBC 4.40 106/ul Normal 4.20-5.40 [facility] Comment on above: Performed By: #### C BC ####[facility] [address] [place] [address]Dr. Lupis Santana WBC 5.4 103/ul Normal 4.0-11.0 [facility] Comment on above: Performed By: #### C BC ####[facility] [address] [place] [address]Dr. Lupis Santana LIPID PROFILEon 01-13-2022 CHOL-HDL RATIO NORM SEE BELOW Normal [facility] Comment on above: Result Comment: 3.3 - 4.4 LOW RISK 4.4 - 7.1 AVERAGE RISK 7.1 - 11.0 MODERATE RISK >11.0 HIGH RISK Performed By: #### L IPID, CMP, TSH ####[facility] [address] [place] [address]Dr. Lupis Santana Cholesterol [Mass/Vol] 225 mg/dL Critically high <=200 [facility] Comment on above: Performed By: #### L IPID, CMP, TSH ####[facility] [address] [place] [address]Dr. Lupis Santana Cholesterol in HDL [Mass/Vol] 73 mg/dL Critically high 40-60 [facility] Comment on above: Performed By: #### L IPID, CMP, TSH ####[facility] [address] [place] [address]Dr. Lupis Santana Cholesterol in LDL [Mass/Vol] 141.6 mg/dL Normal [facility] Comment on above: Performed By: #### L IPID, CMP, TSH ####[facility] [address] [place] [address]Dr. Lupis Santana Cholesterol.total/ Cholesterol in HDL [Mass ratio] 3.1 {ratio} Normal [facility] Comment on above: Performed By: #### L IPID, CMP, TSH ####[facility] [address] [place] [address]Dr. Lupis Santana HDL NORMAL > or = 60 mg/dl - LO W CARDIOVASCULAR RISK <40 mg/dl - HIGH CARDIOVASCULAR RISK Normal [facility] Comment on above: Performed By: #### L IPID, CMP, TSH ####[facility] [address] [place] [id number]. Lupis Santana LDL CALC NORMAL SEE BELOW Normal [facility] Comment on above: Result Comment: <100 mg/dl OPTIMAL 100 - 129 mg/dl NEAR OR ABOVE OPTIMAL 130 - 159 mg/dl BORDERLINE HIGH 160 - 189 mg/dl HIGH >190 mg/dl VERY HIGH Performed By: #### L IPID, CMP, TSH ####[facility] [id number] [place] [id number]. Lupis Santana Triglyceride [Mass/Vol] 52 mg/dL Normal <=150 [facility] Comment on above: Performed By: #### L IPID, CMP, TSH ####[facility] [address] [place], [place] [address]YwDr. Lupis Santana VLDL CALC 10.4 mg/dL Normal [facility] Comment on above: Performed By: #### L IPID, CMP, TSH ####[facility] [id number] [place], [place] [address]LbDr. Lupis Santana PROF 14(COMP METB)on 022 Albumin [Mass/Vol] 3.6 g/dL Normal 3.4-5.0 [facility] Comment on above: Performed By: #### L IPID, CMP, TSH #### [facility] [address] [place] [address] [address] Lupis Santana Albumin/Globulin [Mass ratio] 1.1 {ratio} Normal [facility] Comment on above: Performed By: #### L IPID, CMP, TSH #### [facility] [address] [place] [address] [address] Lupis Santana ALP [Catalytic activity/Vol] 72 U/L Normal 46-116 [facility] Comment on above: Performed By: #### L IPID, CMP, TSH #### [facility] [address] [place] [address] [address] Lupis Santana ALT [Catalytic activity/Vol] 17 U/L Normal 14-59 [facility] Comment on above: Performed By: #### L IPID, CMP, TSH #### [facility] [address] [place] [address] [address] Lupis Santana Anion gap [Moles/Vol] 13.0 mmol/L Normal [facility] Comment on above: Performed By: #### L IPID, CMP, TSH #### [facility] [address] [place] [address] [address] Lupis Santana AST [Catalytic activity/Vol] 20 U/L Normal 15-37 [facility] Comment on above: Performed By: #### L IPID, CMP, TSH #### [facility] [address] [place] [address] [address] Lupis Santana Bilirubin [Mass/Vol] 0.2 mg/dL Normal 0.2-1.0 [facility] Comment on above: Performed By: #### L IPID, CMP, TSH #### [facility] [address] [place] [address] [address] Lupis Santana Calcium [Mass/Vol] 8.9 mg/dL Normal 8.5-10.1 [facility] Comment on above: Performed By: #### L IPID, CMP, TSH #### [facility] [address] [place] [address] [address] Lupis Santana Chloride [Moles/Vol] 103 mmol/L Normal 98-107 [facility] Comment on above: Performed By: #### L IPID, CMP, TSH #### [facility] [address] [place] [address] [address] Lupis Santana CO2 [Moles/Vol] 26.2 mmol/L Normal 21.0-32.0 [facility] Comment on above: Performed By: #### L IPID, CMP, TSH #### [facility] [address] [place] [address] [address] Lupis Santana Creatinine [Mass/Vol] 0.71 mg/dL Normal 0.55-1.02 [facility] Comment on above: Performed By: #### L IPID, CMP, TSH #### [facility] [address] [place] [address] [address] Lupis Santana EGFR-AF TANZANIAN >60 Normal >=60 [facility] Comment on above: Performed By: #### L IPID, CMP, TSH #### [facility] [address] [place] [address] Dr. Lupis Santana EGFR-NON AF TANZANIAN >60 Normal >=60 [facility] Comment on above: Performed By: #### L IPID, CMP, TSH #### [facility] [address] [place] [address] [address] Lupis Santana Globulin (S) [Mass/Vol] 3.4 g/dL Normal [facility] Comment on above: Performed By: #### L IPID, CMP, TSH #### [facility] [address] [place] [address] [address] Lupis Santana Glucose [Mass/Vol] 102 mg/dL Normal 74-106 [facility] Comment on above: Performed By: #### L IPID, CMP, TSH #### [facility] [address] [place] [address] [address] Lupis Santana Potassium [Moles/Vol] 4.2 mmol/L Normal 3.5-5.1 [facility] Comment on above: Performed By: #### L IPID, CMP, TSH #### [facility] [address] [place] [address] [address] Lupis Santana Protein [Mass/Vol] 7.0 g/dL Normal 6.4-8.2 [facility] Comment on above: Performed By: #### L IPID, CMP, TSH #### [facility] [address] [place] [address] [address] Lupis Santana Sodium [Moles/Vol] 138 mmol/L Normal 136-145 [facility] Comment on above: Performed By: #### L IPID, CMP, TSH #### [facility] [address] [place] [address] Dr. Lupis Santana Urea nitrogen [Mass/Vol] 15.0 mg/dL Normal 7.0-18.0 [facility] Comment on above: Performed By: #### L IPID, CMP, TSH #### [facility] [address] [place] [address] Dr. Lupis Santana Urea nitrogen/Creatinin e [Mass ratio] 21.1 mg/mg Normal [facility] Comment on above: Performed By: #### L IPID, CMP, TSH #### [facility] [address] [place] [address] [address] Lupis Santana TSHon 01-13-2022 TSH 1.162 uIU/mL Normal 0.358-3.740 [facility] Comment on above: Performed By: #### L IPID, CMP, TSH ####[facility] [address] [place] [address]Dr. Lupis Santana TSH RANGE SEE BELOW Normal [facility] Comment on above: Result Comment: <0.3 4 UIU/ml HYPERTHYROID 0.34-5.60 UIU/ml EUTHYROID >5.60 UIU/ml HYPOTHYROID Performed By: #### L IPID, CMP, TSH ####[facility] [address] [place], [place] [address]CcArturo Santana Encounters Encounter Date Encounter Type Care Provider Facility Start: 12-11-2022 End: 12-12-2022 ambulatory HOMAR HICKEY Facility:[facility] Start: 04-15-2022 End: 04-15-2022 ambulatory FRANKLIN DALY Facility:[facility] Start: 01-13-2022 End: 01-14-2022 ambulatory FRANKLIN DALY Facility: Payers Date Payer Category Payer Unknown [id number] [id number] [id number] 1970 Unknown [id number] 1970 Unknown [id number] [id number] 1960 Medicaid [id number] 1960 Medicare [id number] Summary Purpose Family History No Family History Records Found Advance Directives No Advanced Directives Records Found Additional Source Comments INFORMATION SOURCE (unrecogn ized section and content) DATE CREATED AUTHOR 12/15/2022 [facility] FOR RECORDS PERTAINING TO PATIENTS WHO [...] BE BASED ON THE PRIMARY CLINICAL RECORDS. [employer] provides no warranty or guarantee of the accuracy or completeness of information in this document.
[2024-04-27] MEDS: OXYCODONE HCL 5 MG TABLET PO (16:36)
[2024-04-27] MEDS: ALBUTEROL SULFATE 2.5 MG/3 ML VIAL NEB IH ×2 (16:40→20:05)
[2024-04-27] MEDS: BUDESONIDE 0.5 MG/2 ML AMPULE NEB IH (20:06)
[2024-04-27] MEDS: ACETAMINOPHEN 500 MG TABLET 1000 MG PO (20:36)
[2024-04-27] MEDS: LEVETIRACETAM 500 MG TABLET PO (20:37)
[2024-04-27] MEDS: NYSTATIN 15 GM POWDER 1 APPLIC TOPICAL (22:24)
[2024-04-28] VITALS (9 sets, daily range): BP systolic 133–144; BP diastolic 82–83; PULSE 55–89; TEMP 36.4–36.5; O2SAT 91–97
[2024-04-28] MEDS: ALBUTEROL SULFATE 2.5 MG/3 ML VIAL NEB IH (04:19)
[2024-04-28] MEDS: OXYCODONE HCL 5 MG TABLET PO (06:14)
[2024-04-28] MEDS: OMEPRAZOLE 40 MG CAPSULE.DR PO (06:14)
[2024-04-28] MEDS: LEVETIRACETAM 500 MG TABLET PO (08:58)
[2024-04-28] MEDS: ATORVASTATIN CALCIUM 10 MG TABLET PO (08:58)
[2024-04-28] MEDS: VENLAFAXINE HCL ER 150 MG CAPSULE PO (08:58)
[2024-04-28] MEDS: ACETAMINOPHEN 500 MG TABLET 1000 MG PO (08:58)
[2024-04-28] MEDS: CEFTRIAXONE 1,000 MG in 0.9 % SODIUM CHLORIDE 50 ML 100 MG IV (08:59)
--- NOTE | 2024-04-28 09:46 | PM.DS1 ---
DS: Providers Provider Date of admission: 04/27/24 10:15 Primary care physician: Lyle Quezada Admitting clinician: Shaikh Jovanny Attending physician on admission: Shaikh Jovanny Consults: 04/27/24 12:02 Physical Therapy Eval and Treat Routine Reason for consultation: Ambulatory dysfunction/weakness Attending physician on discharge: Shaikh Jovanny Discharging clinician: Shaikh Jovanny Anticipated date of discharge: 04/28/24 DS: Diagnosis Discharge Diagnosis (1) Breakthrough seizure: (2) Seizure disorder: (3) UTI (urinary tract infection): Qualifiers: Hematuria presence: without hematuria Urinary tract infection type: acute cystitis Qualified Code(s): N30.00 - Acute cystitis without hematuria (4) Generalized weakness: (5) Multiple sclerosis: DS: Summary Hospital Course Hospital Course: 53 y o female was brought over to ED by EMS after her daughter called 911 for being unresponsive at home. According to family, they could not wake her up but by the time EMS arrived she started to wake up and respond. Patient, she has hx of seizure disorder and that this is a very typical presentation of her seizure. She reports head tingling prior to seizures. She felt week overall but was more or less at her baseline status when I evaluated her.Patient's work up revealed possible UTI for which she was started on IV Rocephin. Patient was previously on Keppra but has not filled it since August and has not followed up with Neurology for over a year now. She was started back on Keppra. Will call in 500 mg q12 - she was instructed to f/u with PCP, Neurology as outpatient. For UTI, I will send her home on Ceftin. Status at Discharge Functional status at discharge: independent ambulation Overall status at discharge: patient is back to baseline Time Spent with Patient Time attestation: Total time spent providing and/or coordinating discharge services: Exam Constitutional Vital Signs, click to edit/add: Last Vital Signs Temp 97.6 F 04/28/24 08:00 Pulse 81 04/28/24 08:00 Resp 16 04/28/24 08:01 BP 144/83 H 04/28/24 08:00 Pulse Ox 91 L 04/28/24 08:00 O2 Del Method Room Air 04/28/24 08:00 O2 Flow Rate 2 04/27/24 11:30 Documenting provider has reviewed patient's vital signs: yes Common normals: no apparent distress and oriented x3 General appearance: cooperative Respiratory Common normals: normal respiratory effort and clear to auscultation bilaterally Effort & inspection: able to speak in complete sentences Auscultation: clear to auscultation bilaterally Cardio Common normals: regular rate, S1 normal heart sound and S2 normal heart sound Rate: regular rate Heart sounds: S1 normal and S2 normal Extremity Common normals: no clubbing, cyanosis or edema Neuro Common normals: oriented x3, moves all extremities and no focal motor deficits Psych Common normals: mental status grossly normal, denies hallucinations, denies homicidal ideation and denies suicidal ideation Discharge Plan Discharge Disposition: Home, Self-Care Condition: Fair Discharge Medications: New levetiracetam [Keppra] 500 mg tablet 500 mg PO Q12H Qty: 60 0RF cefuroxime axetil 500 mg tablet 500 mg PO BID 7 Days Qty: 14 0RF Continued albuterol sulfate 90 mcg/actuation HFA aerosol inhaler 2 puff INHALATION Q4H PRN (Reason: shortness of breath or wheezing) fluticasone furoate-vilanterol 200-25 mcg/dose blister with device 1 inh INHALATION DAILY carisoprodol 350 mg tablet 350 mg PO TID PRN (Reason: muscle pain) atorvastatin 10 mg tablet 10 mg PO DAILY venlafaxine 150 mg capsule,extended release 24hr 150 mg PO DAILY Patient Comments: 150mg in the AM and 75mg at PM pantoprazole 40 mg tablet,delayed release (DR/EC) 40 mg PO DAILY Activity: increase activity as tolerated Diet: advance to your usual diet Print Language: [place] Citizen Forms: Portal Instructions Follow Up Appointments: F/u with PCP in one week F/u with [facility] in 2 weeks
--- NOTE | 2024-04-28 10:00 | CM.NOTE ---
Rounds made with Dr. Petty, pt will discharge to home today and will need f/u with PCP and neurology. Dr. Petty discussed importance of taking seizure medications as prescribed.
--- NOTE | 2024-04-28 10:35 | SWNOTE1 ---
Pt was not able to get ahold of her mother for transportation. SW went in pt's room and attempted to call pt's mother with her. She stated her mother wears hearing aides and usually sleeps until 12:30. SW asked permission to use [facility] transport, pt is agreeable. SW called trips and they will be here around 10:50am. BARBARA notified nursing.
== END 2024-04-28 10:45 | disposition home or self-care (01) ==
LOC: ER 09:13 → MS 10:59
PROVIDERS: Admitting Provider Internal Medicine; Emergency Provider Emergency Medicine; PCP Physician Assistant; Visit Provider Internal Medicine
DX: G40.909 Epilepsy, unspecified, not intractable, without status epilepticus (principal); F17.290 Nicotine dependence, other tobacco product, uncomplicated; N30.00 Acute cystitis without hematuria; R53.1 Weakness; G35 Multiple sclerosis; Z93.6 Other artificial openings of urinary tract status; T42.6X6A Underdosing of other antiepileptic and sedative-hypnotic drugs, initial encounter; Z91.199 Patient's noncompliance with other medical treatment and regimen due to unspecified reason; Z20.822 Contact with and (suspected) exposure to COVID-19; B96.89 Other specified bacterial agents as the cause of diseases classified elsewhere
CPT/HCPCS: 36415; 71045; 80053; 81001; 82805; 83605; 84484; 85025; 87040; 87086; 87186; 87804; 87811; 93005; 94640; 94761; 96361; 96365; 96366; 96372; 96376; 97161; 99285; G0378; J0696; J1650